=== PATIENT | male | born 1935 | race Caucasian/White ===

== ENCOUNTER → 2017-08-18 10:34 | Outpatient (CLI) | payer MEDICARE, OTHER, SELFPAY ==
[2017-08-18 12:00] LABS: AST(SGOT) 16 U/L (15-37); Alanine Aminotransfer ALT/SGPT 18 U/L (16-61); Albumin, Serum 3.6 g/dL (3.2-5.0); Alkaline Phosphatase 90 U/L (45-117); Bilirubin, Direct 0.18 mg/dL (0.00-0.30); Cholesterol 248 mg/dL (200); Globulin 3.2 g/dL (2.2-4.2); High Density Lipoprotein 99 mg/dL; Protein, Total 6.8 g/dL (6.4-8.2); Triglycerides 72 mg/dL; Very Low Density Lipoprotein 14 mg/dL (5-40)
== END ==
PROVIDERS: Visit Provider Internal Medicine Cardiovascular Disease
DX: E78.5 Hyperlipidemia, unspecified (principal); Z79.899 Other long term (current) drug therapy
CPT/HCPCS: 36415; 80061; 80076

== ENCOUNTER → 2017-09-01 11:01 | Outpatient (CLI) | payer MEDICARE, OTHER, SELFPAY | PROVIDERS: Visit Provider Internal Medicine Hematology & Oncology | DX: D72.810 Lymphocytopenia (principal); C91.40 Hairy cell leukemia not having achieved remission | CPT/HCPCS: 94642 ==

== ENCOUNTER → 2017-10-02 10:35 | Outpatient (CLI) | payer MEDICARE, OTHER, SELFPAY | PROVIDERS: Visit Provider Internal Medicine Hematology & Oncology | DX: C91.40 Hairy cell leukemia not having achieved remission (principal) | CPT/HCPCS: 94642 ==

== ENCOUNTER → 2017-11-05 15:24 | Outpatient (CLI) | payer MEDICARE, OTHER, SELFPAY ==
[2017-11-05 16:35] LABS: T4 Total, Thyroxin 14.4 ug/dL (4.5-12.1); Thyroid Stim Hormone (TSH) 4.34 uIU/mL (0.358-3.74)
== END ==
PROVIDERS: Visit Provider Physician Assistant Medical
DX: I10 Essential (primary) hypertension (principal)
CPT/HCPCS: 36415; 84436; 84443

== ENCOUNTER → 2017-11-25 09:39 | Outpatient (CLI) | payer MEDICARE, OTHER, SELFPAY ==
[2017-11-25 10:09] VITALS: PULSE 66; RESP 18
== END ==
PROVIDERS: Visit Provider Internal Medicine Hematology & Oncology
DX: C91.40 Hairy cell leukemia not having achieved remission (principal)
CPT/HCPCS: 94642

== ENCOUNTER → 2018-05-06 15:07 | Outpatient (CLI) | payer MEDICARE, OTHER, SELFPAY ==
[2018-05-06 14:16] VITALS: BMI 25.2
[2018-05-06 16:32] LABS: AST(SGOT) 10 U/L (15-37); Alanine Aminotransfer ALT/SGPT 18 U/L (16-61); Albumin, Serum 3.6 g/dL (3.2-5.0); Alkaline Phosphatase 110 U/L (45-117); Bilirubin, Direct 0.18 mg/dL (0.00-0.30); Globulin 3.2 g/dL (2.2-4.2); Protein, Total 6.8 g/dL (6.4-8.2); T4 Total, Thyroxin 14.4 ug/dL (4.5-12.1); Thyroid Stim Hormone (TSH) 4.37 uIU/mL (0.358-3.74)
--- OUTSIDE RECORDS SUMMARY | 2018-07-01 20:56 | XMS RPT_ITS ---
:1935 Author Organization [facility] Support Name Relationship Address Phone R Unavailable Unavailable Unavailable LURDES JEFFRIES Unavailable [address] + [place] [address] R Unavailable Unavailable Unavailable LURDES JEFFRIES Unavailable [address] + [place] [address] R Unavailable Unavailable Unavailable LURDES JEFFRIES Unavailable [address] + [place] [address] R Unavailable Unavailable Unavailable LURDES JEFFRIES Unavailable [address] + [place] [address] R Unavailable Unavailable Unavailable LURDES JEFFRIES Unavailable [address] + [place] [address] R Unavailable Unavailable Unavailable LURDES JEFFRIES Unavailable [address] + [place] [address] R Unavailable Unavailable Unavailable LURDES JEFFRIES Unavailable [address] + [place] [address] R Unavailable Unavailable Unavailable LURDES JEFFRIES Unavailable [address] + [place] [address] R Unavailable Unavailable Unavailable LURDES JEFFRIES Unavailable [address] + [place] [address] R Unavailable Unavailable Unavailable LURDES JEFFRIES Unavailable [address] + [place] [address] R Unavailable Unavailable Unavailable LURDES JEFFRIES Unavailable [address] + [place] [address] R Unavailable Unavailable Unavailable LURDES JEFFRIES Unavailable [address] + [place] [address] R Unavailable Unavailable Unavailable LURDES JEFFRIES Unavailable [address] + [place] [address] R Unavailable Unavailable Unavailable LURDES JEFFRIES Unavailable [address] + [place] [address] R Unavailable Unavailable Unavailable LURDES JEFFRIES Unavailable [address] + [place] [address] R Unavailable Unavailable Unavailable LURDES JEFFRIES Unavailable [address] + [place] [address] R Unavailable Unavailable Unavailable LURDES JEFFRIES Unavailable [address] + [place] [address] Care Team Providers Name Role Phone EDD, LAPMAN Referring Unavailable EDD, LAPMAN Referring Unavailable EDD, LAPMAN Referring Unavailable EDD, LAPMAN Referring Unavailable EDD, LAPMAN Attending Unavailable EDD, LAPMAN Referring Unavailable EDD, LAPMAN Referring Unavailable MASCIJOLENE A Referring Unavailable EDD, LAPMAN Referring Unavailable EDD, LAPMAN Referring Unavailable EDD, LAPMAN Attending Unavailable EDD, LAPMAN Referring Unavailable EDD, LAPMAN Referring Unavailable EDD, LAPMAN Referring Unavailable EDD, LAPMAN Referring Unavailable EDD, LAPMAN Attending Unavailable EDD, LAPMAN Referring Unavailable MASCIJOLENE A Referring Unavailable EDD, LAPMAN Attending Unavailable EDD, LAPMAN Referring Unavailable EDD, LAPMAN Referring Unavailable EDD, LAPMAN Attending Unavailable EDD, LAPMAN Referring Unavailable CA OROZCO Attending Unavailable FAIZA MERCADO KAMINI Referring Unavailable PAM, DAESUNG Referring Unavailable EDD, LAPMAN Referring Unavailable EDD, LAPMAN Attending Unavailable EDD, LAPMAN Referring Unavailable Michael Hameed Admitting Unavailable Michael Hameed Attending Unavailable Lee Olivas Primary Care Unavailable Lisa, Vasquez Attending Unavailable Lisa, Vasquez Referring Unavailable Faiza Mercado Primary Care Unavailable Lisa, Vasquez Consulting Unavailable Ashtyn Fuentes Attending Unavailable Edd, Lapman Attending Unavailable Faiza Mercado Primary Care Unavailable Edd, Lapman Attending Unavailable Edd, Lapman Referring Unavailable Faiza Mercado Primary Care Unavailable Lisa, Vasquez Attending Unavailable Lisa, Vasquez Referring Unavailable Faiza Mercado Primary Care Unavailable Edd, Lapman Attending Unavailable Edd, Lapman Referring Unavailable Faiza Mercado Primary Care Unavailable Mónica Singletary Attending Unavailable Edd, Lapman Attending Unavailable Edd, Lapman Referring Unavailable Faiza Mercado Primary Care Unavailable Meghna Escalante Attending Unavailable Mónica Singletary Attending Unavailable Meghna Escalante Attending Unavailable Diana Benton Attending Unavailable Faiza Mercado Referring Unavailable Faiza Mercado Primary Care Unavailable Diana Benton Attending Unavailable Diana Benton Referring Unavailable Faiza Mercado Primary Care Unavailable Gilberto Puga Attending Unavailable Gilberto Puga Referring Unavailable Faiza Mercado Primary Care Unavailable Lisa, Holbrook Attending Unavailable Faiza Mercado Referring Unavailable Lisa, Holbrook Attending Unavailable Lisa, Vasquez Referring Unavailable Faiza Mercado Primary Care Unavailable Lisa, Holbrook Attending Unavailable Lisa, Vasquez Referring Unavailable Faiza Mercado Primary Care Unavailable PROBLEMS PROBLEMS DATE TYPE CONDITION / CODE ATTENDING STATUS SOURCE 05/19/2018 Unknown I46.9 - Cardiac Lisa, Vasquez Active [place] arrest, cause Community unspecified / Hospital I46.9(ICD-10) Repository 05/06/2018 Unknown Z79.899 - Other long Lisa, Vasquez Active [place] term (current) drug Community therapy / Hospital Z79.899(ICD-10) Repository 05/06/2018 Unknown I48.0 - Paroxysmal Lisa, Holbrook Active [place] atrial fibrillation / Community I48.0(ICD-10) Hospital Repository 05/06/2018 Unknown I48.92 - Unspecified Lisa, Holbrook Active [place] atrial flutter / Community I48.92(ICD-10) Hospital Repository 05/06/2018 Unknown I10 - Essential Lisa, Vasquez Active [place] (primary) hypertension Community / I10(ICD-10) Hospital Repository 08/18/2017 Unknown E78.5 - Lisa, Vasquez Active [place] Hyperlipidemia, Community unspecified / Hospital E78.5(ICD-10) Repository 07/17/2017 Unknown D72.810 - Gilberto Puga Active [place] Lymphocytopenia / Community D72.810(ICD-10) Hospital Repository 07/17/2017 Unknown C91.40 - Hairy cell Gilberto Puga Active [place] leukemia not having Community achieved remission / Hospital C91.40(ICD-10) Repository 05/12/2017 Active Agranulocytosis NA Active [place] secondary to cancer Clinic Main chemotherapy / [place] D70.1(ICD-10) Repository 05/12/2017 Active Adverse effect of [facility] antineoplastic and Clinic Main immunosuppressive [place] drugs, initial Repository encounter / T45.1X5A(ICD-10) 04/26/2014 Active Malignant neoplasm of Active [place] prostate / C61(ICD-10) Clinic Main [place] Repository 11/30/2015 Active Hairy cell leukemia, 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 / Clinic Main C91.41(ICD-10) [place] Repository PROCEDURES PROCEDURES No Procedure Records FoundRESULTS RESULTS ECHOCARDIOGRAM COMPLETE Observed: 05/19/2018 Status: F Source: [place] 3:53 PM [facility] REPOSITORY [facility] Cardiovascular Services [address] [place] [address] Echo Complete 05/19/18 1355 MR#: [id number] Acct: [id number] Name: NITIN KINGSLEY Rep #: [id number] : 1935 82 From: Vasquez Gonzalez MD Attending Dr: Vasquez Gonzalez MD Status: REG CLI Ordering Dr: Vasquez Gonzalez MD Date: 05/19/18 Location: [facility] Sex: M C Admitted: Reason For Study: ARRHYTHMIA Procedure This was a 2D Doppler, Color Flow transthoracic echocardiogram. The study was technically difficult. Exam performed in department. Left Ventricle Normal LV size. Left ventricular systolic function is normal. The estimated ejection fraction is 55 %. Stage 1 diastolic dysfunction. The global longitudinal strain = -16% (abnormal). No regional wall motion abnormalities noted. Right Ventricle Normal RV size. Normal systolic function. Atria The left atrium is mildly enlarged. Normal right atrium. Mitral Valve Normal mitral valve. Mild (1+) eccentric mitral valve insufficiency. Tricuspid Valve Normal tricuspid valve. Aortic Valve Trisinus/trileaflet aortic valve. Mild-Moderate (1-2+) eccentric aortic valve insufficiency. Pulmonic Valve Normal pulmonic valve. Great Vessels Normal aortic root. The pulmonary artery is normal size. Normal inferior vena cava. Pericardium/Pleural No pericardial effusion. MMode/2D Measurements AND Calculations LVIDd: 4.3 cm IVSd: 1.3 cm Ao root diam: 3.6 cm LVIDs: 3.1 cm LVPWd: 0.96 cm RVDd: 3.3 cm FS: 29.8 % LAV(MOD-bp): 68.4 ml LA A4 area: 22.2 cm2 LA dimension(2D): 3.7 cm LAV(MOD-bp) Indexed: 37.7 ml/m2 LAV(MOD-sp2): 61.8 ml LAV(MOD-sp4): 72.2 ml RA A4 area: 12.1 cm2 Time Measurements MV dec time: 0.30 sec Doppler Measurements AND Calculations MV E max justice: 54.7 cm/sec Lat Peak E' Justice: 7.7 cm/sec Med Peak E' Justice: 5.9 cm/sec MV A max justice: 130.2 cm/sec E/E' lat: 7.1 E/E' med: 9.2 MV E/A: 0.42 Ao V2 max: 139.1 cm/sec AI max justice: 421.8 cm/sec LV V1 max: 105.2 cm/sec Ao max P.7 mmHg AI max P.2 mmHg LV V1 max P.4 mmHg AI dec slope: 185.0 cm/sec2 AI P1/2t: 667.7 msec PA V2 max: 81.4 cm/sec TR max justice: 215.1 cm/sec TR max P.5 mmHg Interpretation Summary Normal LV size. Left ventricular systolic function is normal. The estimated ejection fraction is 55 %. Stage 1 diastolic dysfunction. Mild-Moderate (1-2+) eccentric aortic valve insufficiency. The global longitudinal strain = -16% (abnormal). Ordering Physician: Vasquez Gonzalez Referring Physician: Faiza Mercado Performed By: Dedra Beckford, MABELCS, RVT 05/19/18 1552 Date Vasquez Gonzalez MD CC: Vasquez Gonzalez MD; Faiza Mercado MD Date Dictated: 05/19/18 1355 Date Transcribed: 05/19/181551 Recruiter Specialist: Signed PROGRESS Observed: 05/07/2018 Status: COMPLETED Source: [place] 11:51 AM [facility] REPOSITORY [facility] ID: [id number] Author: Gilberto Puga Service: (none) Author Type: Physician Type: Progress Notes Filed: 05/08/2018 8:55 AM Note Text: PATIENT NAME: Nitin Kingsley. CLINIC NO: [id number]. ATTENDING PHYSICIAN: Gilberto Puga MD. DATE OF SERVICE: 05/07/2018 ?? 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 HPI: Mr. 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 He had induction chemtherapy with 2CDA initially in November of 1997. He was in complete remission and he had a splenic recurrence in 2000. The patient subsequently had splenectomy, and second course of 2 CDA and went into complete remission again in February of 2004. The patient had his third recurrence with progressive anemia and pancytopenia in 2008. He received Rituxan and 2 CDA and was again in complete remission since 2008. ?? Since nursing home, he has increased fatigue and decreased stamina. Patient has no cough, shortness of breath. He has no fever, chills or night sweats. Weight and appetite remain stable. Patient also has a rising PSA level in history of prostate cancer. ?? He was diagnosed with prostate cancer and had Lupron injection and completed external beam radiation therapy for his prostate cancer last fall. Since that time, patient has increased fatigue. He had a GI evaluation for anemia recently?and it was negative. ?? Current treatment: Rituximab weekly x 4 ( 03/24/17 - 04/21/17 ) Vermurafenib 250mg once daily ( 05/28/17 - 11/05/17?) ?? Interim history:?Patient completed his induction rituximab last year, follow-up by Vermurafenib 250mg once daily in May 28, 2017?because persistent anemia and leukopenia. His complete blood count has totally recover since that time. ?He has no fever, chills or night sweats. CD4 count continued improved.?He has no mouth sore, stomatitis or diarrhea. Patient has no sign of infection. 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 He has no chest pain or shortness of breath. No problem with urination and his prostate cancer is in complete remission ? All medications AND?allergies updated and?reviewed by me. ?? REVIEW OF SYSTEMS: ?? CONSTITUTIONAL: No fevers, chills, nightsweats,?fatigue. HEENT: Denies frequent or severe heaches, nasal congestion/sinus symptoms, problematic allergy problems. EYES: No diplopia or blurry vision. CARDIOVASCULAR: No chest pain, dyspnea, palpitations, orthopnea, PND, ankle edema. PULM: No dyspnea, unexplained cough. GI: No dysphagia/odynophagia, problematic reflux, constipation, diarrhea, changes in stool habits, hematochezia, melena. : No new urinary complaints, including dysuria, gross hematuria or pyuria. NEURO: No new balance problems, peripheral weakness/paresthesias or numbness of concern. MUSC-SKEL: No new joint pain, swelling, or erythema. PSY: No concerns regarding depression, anxiety or panic. INTEGUMENTARY: No new skin changes (rash, new or changing mole, new growth) ?? PHYSICAL EXAMINATION: ?82-year-old well-nourished, well-developed gentleman in no distress Performance status 100% BP 149/71 Pulse 70 Temp (Src) 98 (Oral) Wt 155 lb 8 oz (70.5kg) HEENT: Head is normocephalic, atraumatic. Sclerae white, conjunctivae pink. PEERL. EOMs are intact. Oropharynx is benign. No thrush LYMPHATICS: There is no palpable adenopathy in the neck, supraclavicular region, axillae, or groin. LUNGS: Lungs are clear to percussion and auscultation. HEART: Heart is normal without murmurs, gallops, or rubs. ABDOMEN: Soft and nontender without organomegaly. No masses can be palpated. EXTREMITIES: Are without edema. NEUROLOGIC: Exam is physiologic ?? LABORATORY DATA: Component Latest Ref Rng AND Units 04/30/2018 WBC, [place] 3.70 - 11.00 k/uL 6.21 RBC, [place] 4.20 - 6.00 m/uL 4.35 Hemoglobin, [place] 13.0 - 17.0 g/dL 13.2 Hematocrit, [place] 39.0 - 51.0 % 40.7 MCV, [place] 80.0 - 100.0 fL 93.6 MCH, [place] 26.0 - 34.0 pg 30.3 MCHC, [place] 30.5 - 36.0 g/dL 32.4 RDW, [place] 11.5 - 15.0 % 16.6 (H) Platelet Cnt, [place] 150 - 400 k/uL 284 MPV, [place] 9.0 - 12.7 fL 9.6 Absol Gran Count 1.45 - 7.50 k/uL 4.30 Component Latest Ref Rng AND Units 04/30/2018 Protein, Total 6.3 - 8.0 g/dL 6.1 (L) Albumin 3.9 - 4.9 g/dL 4.1 Calcium 8.5 - 10.2 mg/dL 9.4 Bilirubin, Total 0.2 - 1.3 mg/dL 0.4 Alkaline Phosphatase 38 - 113 U/L 103 AST 14 - 40 U/L 13 (L) Glucose 74 - 99 mg/dL 96 BUN 9 - 24 mg/dL 23 Creatinine 0.73 - 1.22 mg/dL 1.49 (H) Sodium 136 - 144 mmol/L 137 Potassium 3.7 - 5.1 mmol/L 4.2 Chloride 97 - 105 mmol/L 106 (H) CO2 22 - 30 mmol/L 21 (L) Anion Gap 9 - 18 mmol/L 10 ALT 10 - 54 U/L 12 eGFR- 55 eGFR-All Other Races . 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 In complete remission. -His neutropenia and anemia have resolved.? PLAN: - discontinue Vermurafenb - discontinue iron since his anemia resolved. - follow up with dermatology for skin cancer screening (increase risks for skin cancer AND melanoma) - repeat CBC, CMP, LDH AND?quantitative immunoglobulins OV in 6 months - repeat PSA in 6 months for monitoring his prostate cancer s/p radiation therapy I spent 25 minutes in the visit, with more than 50% of the total logs-cu-xwms time of the visit in counseling / coordination of care. Gilberto uPga MD ? Cc: Dr. Faiza Mercado CNOVSP Observed: 05/07/2018 Status: COMPLETED Source: [place] 11:40 AM [facility] REPOSITORY Visit (SP) Office ([place]) NITIN KINGSLEY ([id number]) 1935 M Date Time Provider Department 05/07/18 11:40 AM GILBERTO PUGA During your visit today, we recorded the following information about you: Temperature Pulse Blood pressure Weight 98 degrees 70/minute 149/71 70.5 kg Gilberto Puga MD 05/07/2018 11:46 AM Signed Skin cancer screening Gilberto Puga MD 05/08/2018 8:55 AM Signed PATIENT NAME: Nitin Kingsley. CLINIC NO: [id number]. ATTENDING PHYSICIAN: Gilberto Puga MD. DATE OF SERVICE: 05/07/2018 ?? 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 HPI: Mr. 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 He had induction chemtherapy with 2CDA initially in November of 1997. He was in complete remission and he had a splenic recurrence in 2000. The patient subsequently had splenectomy, and second course of 2 CDA and went into complete remission again in February of 2004. The patient had his third recurrence with progressive anemia and pancytopenia in 2008. He received Rituxan and 2 CDA and was again in complete remission since 2008. ?? Since nursing home, he has increased fatigue and decreased stamina. Patient has no cough, shortness of breath. He has no fever, chills or night sweats. Weight and appetite remain stable. Patient also has a rising PSA level in history of prostate cancer. ?? He was diagnosed with prostate cancer and had Lupron injection and completed external beam radiation therapy for his prostate cancer last fall. Since that time, patient has increased fatigue. He had a GI evaluation for anemia recently?and it was negative. ?? Current treatment: Rituximab weekly x 4 ( 03/24/17 - 04/21/17 ) Vermurafenib 250mg once daily ( 05/28/17 - 11/05/17?) ?? Interim history:?Patient completed his induction rituximab last year, follow-up by Vermurafenib 250mg once daily in May 28, 2017?because persistent anemia and leukopenia. His complete blood count has totally recover since that time. ?He has no fever, chills or night sweats. CD4 count continued improved.?He has no mouth sore, stomatitis or diarrhea. Patient has no sign of infection. 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 He has no chest pain or shortness of breath. No problem with urination and his prostate cancer is in complete remission ? All medications AND?allergies updated and?reviewed by me. ?? REVIEW OF SYSTEMS: ?? CONSTITUTIONAL: No fevers, chills, nightsweats,?fatigue. HEENT: Denies frequent or severe heaches, nasal congestion/sinus symptoms, problematic allergy problems. EYES: No diplopia or blurry vision. CARDIOVASCULAR: No chest pain, dyspnea, palpitations, orthopnea, PND, ankle edema. PULM: No dyspnea, unexplained cough. GI: No dysphagia/odynophagia, problematic reflux, constipation, diarrhea, changes in stool habits, hematochezia, melena. : No new urinary complaints, including dysuria, gross hematuria or pyuria. NEURO: No new balance problems, peripheral weakness/paresthesias or numbness of concern. MUSC-SKEL: No new joint pain, swelling, or erythema. PSY: No concerns regarding depression, anxiety or panic. INTEGUMENTARY: No new skin changes (rash, new or changing mole, new growth) ?? PHYSICAL EXAMINATION: ?82-year-old well-nourished, well-developed gentleman in no distress Performance status 100% BP 149/71 Pulse 70 Temp (Src) 98 (Oral) Wt 155 lb 8 oz (70.5kg) HEENT: Head is normocephalic, atraumatic. Sclerae white, conjunctivae pink. PEERL. EOMs are intact. Oropharynx is benign. No thrush LYMPHATICS: There is no palpable adenopathy in the neck, supraclavicular region, axillae, or groin. LUNGS: Lungs are clear to percussion and auscultation. HEART: Heart is normal without murmurs, gallops, or rubs. ABDOMEN: Soft and nontender without organomegaly. No masses can be palpated. EXTREMITIES: Are without edema. NEUROLOGIC: Exam is physiologic ?? LABORATORY DATA: Component Latest Ref Rng AND Units 04/30/2018 WBC, [place] 3.70 - 11.00 k/uL 6.21 RBC, [place] 4.20 - 6.00 m/uL 4.35 Hemoglobin, [place] 13.0 - 17.0 g/dL 13.2 Hematocrit, [place] 39.0 - 51.0 % 40.7 MCV, [place] 80.0 - 100.0 fL 93.6 MCH, [place] 26.0 - 34.0 pg 30.3 MCHC, [place] 30.5 - 36.0 g/dL 32.4 RDW, [place] 11.5 - 15.0 % 16.6 (H) Platelet Cnt, [place] 150 - 400 k/uL 284 MPV, [place] 9.0 - 12.7 fL 9.6 Absol Gran Count 1.45 - 7.50 k/uL 4.30 Component Latest Ref Rng AND Units 04/30/2018 Protein, Total 6.3 - 8.0 g/dL 6.1 (L) Albumin 3.9 - 4.9 g/dL 4.1 Calcium 8.5 - 10.2 mg/dL 9.4 Bilirubin, Total 0.2 - 1.3 mg/dL 0.4 Alkaline Phosphatase 38 - 113 U/L 103 AST 14 - 40 U/L 13 (L) Glucose 74 - 99 mg/dL 96 BUN 9 - 24 mg/dL 23 Creatinine 0.73 - 1.22 mg/dL 1.49 (H) Sodium 136 - 144 mmol/L 137 Potassium 3.7 - 5.1 mmol/L 4.2 Chloride 97 - 105 mmol/L 106 (H) CO2 22 - 30 mmol/L 21 (L) Anion Gap 9 - 18 mmol/L 10 ALT 10 - 54 U/L 12 eGFR- 55 eGFR-All Other Races . 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 In complete remission. -His neutropenia and anemia have resolved.? PLAN: - discontinue Vermurafenb - discontinue iron since his anemia resolved. - follow up with dermatology for skin cancer screening (increase risks for skin cancer AND melanoma) - repeat CBC, CMP, LDH AND?quantitative immunoglobulins OV in 6 months - repeat PSA in 6 months for monitoring his prostate cancer s/p radiation therapy I spent 25 minutes in the visit, with more than 50% of the total vlkh-qs-yggu time of the visit in counseling / coordination of care. Gilberto Puga MD ? Cc: Dr. Faiza Mercado Referring Provider: GILBERTO PUGA [[id number]] Allergies As of Date: 05/07/2018 Noted Allergy Reaction CIPRO (CIPROFLOXACIN) 09/26/2005 7 - Swelling 10 - Anaphylaxis ALLOPURINOL SODIUM 09/26/2005 2 - Rash BACTRIM (SULFAMETHOXAZOLE-TRIMETH*09/26/2005 2 - Rash IODINE (CONTRAST DYE) 09/26/2005 2 - Rash Comments: not a problem topically RITUXAN (RITUXIMAB) 03/24/2017 14 - Other: See Comments Comments: See nursing notes 03/24/18. Date Reviewed: 05/07/2018 Reviewed by: Oumou Yang - Fully Assessed Reason for Visit: Established Patient [175] Primary Visit Diagnosis:Hairy cell leukemia, in remission (HCC) [C91.41] Other Visit Diagnoses:Prostate cancer (HCC) [C61] H/O splenectomy [Z90.81] Level of Service: EST PATIENT VISIT LEVEL 4 [[id number]] Disposition: Return in about 6 months (around 11/04/2018). LOS history recorded Follow-up and Disposition History Recorded Prescriptions as of 05/07/2018 Sig: PYRIDOXINE (VITAMIN B6) 100 M* Take 1 tablet by mouth once d* ATORVASTATIN 10 MG TABLET Take 10 mg by mouth once nelsy* * CARVEDILOL 6.25 MG TABLET Take 6.25 mg by mouth twice d* * FLOMAX 0.4 MG CAPSULE Take one(1) tablet daily. Medication notes this encounter AMIODARONE 100 MG TABLET >> Oumou Yang MA 05/07/2018 11:30 AM >> OUMOU YANG MA ThuMay 07, 2018 11:30 AM No longer taking. 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] INVALID FOR* H/O splenectomy [Z90.81] INVALID FOR* Prostate cancer (HCC) [C61] INVALID FOR* 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] INVALID FOR* Anemia [D64.9] INVALID FOR* Chemotherapy-induced neutropenia (HCC) [D70.1, *INVALID FOR* Other instructions from your clinician: Skin cancer screening Encounter Status:Closed by GILBERTO PUGA MD on 05/08/18 LIVER PROFILE Collected: 05/06/2018 Status: F Source: [place] 3:14 PM [facility] REPOSITORY TYPE CODE TESTS RESULT OUT OF RANGE REFERENCE UNITS LAB L501.1500 6.4-8.2 g/dL Normal T PROT 6.8 LAB L501.1800 3.2-5.0 g/dL Normal ALB 3.6 LAB L501.1950 2.2-4.2 g/dL Normal GLOB 3.2 LAB L501.4100 15-37 U/L Low AST 10 LAB L501.4305 45-117 U/L Normal ALK P 110 LAB L501.4405 16-61 U/L Normal ALT 18 LAB L501.4600 0.20-1.00 mg/dL Normal T BILI 0.50 LAB L501.4700 0.00-0.30 mg/dL Normal D BILI 0.18 Performed By: #### L500.3400, L501.9310, L501.9520 #### Laboratory [address] [place], [place], [id number] T4 TOTAL, THYROXIN Collected: 05/06/2018 Status: F Source: [place] 3:14 PM [facility] REPOSITORY TYPE CODE TESTS RESULT OUT OF REFERENCE UNITS RANGE LAB L501.9310 4.5-12.1 ug/dL T4 High THYROXIN 14.4 Performed By: #### L500.3400, L501.9310, L501.9520 #### Laboratory [address] [place], [place], [id number] THYROID STIM HORMONE Collected: 05/06/2018 Status: F Source: [place] ([facility]) 3:14 PM [facility] REPOSITORY TYPE CODE TESTS RESULT OUT OF RANGE REFERENCE UNITS LAB L501.9520 0.358-3.74 uIU/mL High TSH 4.37 Performed By: #### L500.3400, L501.9310, L501.9520 #### Laboratory [address] [place], [address] CARDIOLOGY VISIT Observed: 05/06/2018 Status: F Source: [place] REPORT 2:45 PM [facility] REPOSITORY [facility] [address] [place] [address] OFFICE VISIT Date of Service: 05/06/18 MR#: [id number] Acct: [id number] Name: NITIN KINGSLEY Rep #: [id number] : 1935 Provider: Vasquez Gonzalez MD Age/Sex: 82/M Location: [facility] [place] Status: Signed HPI HPI Chief Complaint: Follow up visit Details: NITIN KINGSLEY, is a 82 M who presents to the office today for a routine follow-up visit. He is a gentleman with a history of atrial fibrillation with rapid ventricular response rate in the setting of an acute GI bleed and hemorrhagic shock. He also has a history of hyperlipidemia and her recent leukemia. He denies any chest pain or shortness of breath or paroxysmal nocturnal dyspnea or pedal edema he is not had any chest tightness or palpitations. He has had no neck arm or jaw discomfort suggest angina. He has been compliant with all his medications. His physical exam today demonstrates clear lung pham regular rate and rhythm and no pedal edema. His electric cardiogram does corroborate this demonstrating sinus rhythm with a rate of 66 bpm. 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 Accompanied by: Is patient in pain?: No Allergies allopurinol Allergy (Verified 05/06/18 14:16) Swelling ciprofloxacin [From Cipro] Allergy (Verified 05/06/18 14:16) Unknown ciprofloxacin HCl [From Cipro] Allergy (Verified 05/06/18 14:16) Unknown iodine Allergy (Verified 05/06/18 14:16) Unknown sulfamethoxazole [From Bactrim] Allergy (Verified 05/06/18 14:16) Unknown trimethoprim [From Bactrim] Allergy (Verified 05/06/18 14:16) Unknown Medications Carvedilol [Coreg] 6.25 mg PO BID 09/06/14 [History Confirmed 05/06/18] Tamsulosin HCl [Flomax] 0.4 mg PO DAILY 09/06/14 [History Confirmed 05/06/18] ferrous gluconate 324 mg (36 mg iron) tablet 324 mg PO QDAY tab 11/04/17 [History Confirmed 05/06/18] vemurafenib 240 mg tablet PO 28 Days #56 11/04/17 [History Confirmed 05/06/18] atorvastatin 10 mg tablet 10 mg PO QDAY #30 tab 11/20/17 [Rx Confirmed 05/06/18] PFSH Medical History Hyperlipidemia (Chronic) Atrial flutter (Chronic) Paroxysmal atrial fibrillation (Chronic) Hypertension (Chronic) Surgical History H/O splenectomy (Resolved) History of tonsillectomy (Resolved) Social History Smoking Status: Former smoker alcohol intake: never caffeine: Yes Type: coffee Number of servings: 2 what type of physical activity do you participate in: none ROS Const Const: Negative for fatigue, weakness, night sweats, excessive sweating, frequent falls, headache(s) or daytime sleepiness Eyes Eyes: Negative for loss of peripheral vision, transient loss of vision, blind spots, double vision or blurry vision ENT ENT: Negative for headache(s), dizziness, balance problems, Nosebleed/epistaxis, tongue swelling or lip swelling Cardio Chest Pain: No Palpitations: No Edema: None Muscle aches with walking: None Resp Respiratory: Negative for SOB at rest, SOB orthopnea\SOB lying down, Cough, paroxysmal nocturnal dyspnea or SOB with activity GI GI: Negative nausea, vomiting, heartburn, black,tarry stools or bright, red blood in stools : Negative for hematuria Musc Musc: Negative for balance problems, muscle aches/ myalgia, muscle weakness or joint pain Skin Skin: Negative non-healing lesions, unusual bruising or rash Neuro Neuro: Negative for weakness, frequent falls, headache(s), double vision, dizziness, lightheadedness, orthostatic symptoms, blurry vision or lack of coordination Jacob Hematologic/Lymphatic: Negative for easy bruising or easy bleeding Endo Endo: Negative for fatigue, excessive sweating, cold intolerance, heat intolerance, increased thirst/drinking or hair loss Psych Psych: Negative for anxiety or depression Allergy Allergy/Immunology: Negative for throat swelling, Negative for tongue swelling, Negative for hives, Negative for rash, Negative for lip swelling Cardiology Exam Const Appearance: cooperative, healthy appearing, well developed, well groomed and no acute distress Nutritional Appearance: well nourished and average body habitus Orientation: alert, awake and oriented x3 Head Head: normal to inspection, normocephalic and atraumatic Ears: hearing grossly normal bilaterally and external ears normal Nose: external nose normal, nasal mucous membranes and turbinates normal, nares normal, septum normal, no nasal discharge Face and Sinus: face symmetric Mouth: oral mucosae normal, tongue normal, oropharynx normal and moist mucous membranes Teeth and gingiva: dentition normal Throat: posterior oropharynx normal, tonsils normal and uvula midline Eyes General: appearance normal, both eyes and all related structures Eyelids: eyelids normal Conjunctivae: conjunctivae normal Pupils: PERRL, normal by confrontation and accommodation normal EOM: EOM intact bilaterally Neck Neck: normal visual inspection, trachea midline and no JVD JVD: +5 Carotids: normal carotid upstroke and bounding pulses Chest Chest inspection: normal inspection of the chest, symmetric chest movement and normal respiratory effort Auscultation: Bilateral: Clear to Auscultation Cardio Palpation: normal PMI Rate: regular rate Rhythm: regular rhythm Heart sounds: S1 normal, S2 normal and normal, physiologic split S2; negative rub, gallop or murmur GI GI: normal to inspection, soft, no hepatosplenomegaly and bowel sounds present Neuro General: alert, awake, oriented x3, no focal sensory deficit, gait normal and moves all extremities Skin Skin: no rashes or lesions noted Extremities Pulses: Normal: Right Femoral Pulse, Left Femoral Pulse, Right Dorsalis Pedis Pulse, Left Dorsalis Pedis Pulse, Right Posterior Tibial Pulse, Left Posterior Tibial Pulse, Right Radial Pulse, Left Radial Pulse Lower Extremity Edema: None: Bilateral Musculoskel Musculoskeletal: No joint tenderness Psych Psychological: normal affect Assessment AND Plan 1. Paroxysmal atrial fibrillation I48.0 Plan He did have a history of paroxysmal atrial fibrillation he is not had any recurrent episodes recently. My recommendation is that in the absence of any active issues regarding either chemotherapy or GI or stress issues we can discontinue his amiodarone. An echocardiogram should be performed to assess his left ventricular function. You do remember that he does have mild aortic regurgitation as well. Routine hepatic and thyroid function test however should be performed. Orders Orders: 2. Essential hypertension I10 Plan His blood pressure appears to be under good control on the current medical therapy I would not recommend that we make any changes. He will remain on the same dose of the carvedilol. He is also on tamsulosin for prostate. Thank you for allowing me to participate in the care of your patient. 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) Coding Level of Care Code Off vis,est,level 3 Diagnoses Paroxysmal atrial fibrillation I48.0 Essential hypertension I10 Hypertension type: essential hypertension Coding Level of Care Code Off vis,est,level 3 Diagnoses Paroxysmal atrial fibrillation I48.0 Essential hypertension I10 Hypertension type: essential hypertension 05/06/18 1445 <Electronically signed by Vasquez Gonzalez MD> Date Vasquez Gonzalez MD Cosigner Signature: Date (if applicable) CC: Faiza Mercado MD 12 LEAD EKG PERFORMED Observed: 05/06/2018 Status: F Source: [place] TAVAREZ 2:19 PM [facility] REPOSITORY [facility] [address] [place] [address] 12 Lead EKG performed by BMS 05/06/188 MR#: [id number] Acct: [id number] Name: NITIN KINGSLEY Rep #: [id number] : 1935 82 From: Vasquez Gonzalez MD Attending Dr: Vasquez Gonzalez MD Status: DEP AMB Ordering Dr: Vasquez Gonzalez MD Date: 05/06/18 [place]: [facility] [place] Sex: M C Admitted: BMS/12 Lead EKG performed by [facility] Sinus Rhythm WITHIN NORMAL LIMITS 05/10/18 0841 <Electronically signed by Vasquez Gonzalez MD> Date Vasquez Gonzalez MD CC: Faiza Mercado MD Date Dictated: 05/06/181417 Date Transcribed: 05/06/181417 Recruiter Specialist: [place] Signed [place] ABS GR + CBC Collected: 04/30/2018 Status: F Source: [facility] 2:49 PM [facility] REPOSITORY TYPE CODE TESTS RESULT OUT OF REFERENCE UNITS RANGE LAB WWBC 3.70-11.00 k/uL [place] WBC 6.21 LAB WRBC 4.20-6.00 m/uL [place] RBC 4.35 LAB WHGB 13.0-17.0 g/dL [place] Hemoglobin 13.2 LAB WHCT 39.0-51.0 % [place] Hematocrit 40.7 LAB WMCV 80.0-100.0 fL [place] MCV 93.6 LAB WMCH 26.0-34.0 pg [place] MCH 30.3 LAB WMCHC 30.5-36.0 g/dL [place] MCHC 32.4 LAB WRDW 11.5-15.0 % [place] High RDW 16.6 LAB WPLT 150-400 k/uL [place] Platelet Cnt 284 LAB WMPV 9.0-12.7 fL [place] MPV 9.6 Result Comment: Test performed at: [facility] [place], [address] [place] [address] [address] [place] [address]. LAB ABGRAN 1.45-7.50 k/uL Absol Gran 4.30 Count COMP METABOLIC PANEL Collected: 04/30/2018 Status: F Source: [place] 2:48 PM [facility] REPOSITORY TYPE CODE TESTS RESULT OUT OF REFERENCE UNITS RANGE LAB TP 6.3-8.0 g/dL Protein, Low Total 6.1 LAB ALB 3.9-4.9 g/dL Albumin 4.1 LAB CA 8.5-10.2 mg/dL Calcium, Total 9.4 LAB TBIL 0.2-1.3 mg/dL Bilirubin, Total 0.4 LAB ALKP 38-113 U/L Alkaline Phosphatase 103 LAB AST 14-40 U/L AST Low 13 LAB GLU 74-99 mg/dL Glucose 96 LAB BUN 9-24 mg/dL BUN 23 LAB CRET 0.73-1.22 mg/dL Creatinine High 1.49 LAB NA 136-144 mmol/L Sodium 137 LAB K 3.7-5.1 mmol/L Potassium 4.2 LAB CL 97-105 mmol/L Chloride High 106 LAB CO2 22-30 mmol/L CO2 Low 21 LAB AGAP 9-18 mmol/L Anion Gap 10 LAB ALT 10-54 U/L ALT 12 LAB GFRAA eGFR- 55 Amer. LAB GFRNAA . eGFR-All Other Races 45 Result Comment: eGFR (Estimated GFR) Units of measure: mL/min/1.73 meters squared eGFR is derived from the reexpressed MDRD Study equation using the following parameters: serum creatinine, age, gender and race. The creatinine assay has been calibrated to be traceable to IDMS. An eGFR <60 mL/min/1.73m2 for >3 months is consistent with chronic kidney disease. Refer to KDOQI guidelines for clinical interpretation. In patients with unstable renal function, e.g. those with acute kidney injury, the eGFR may not accurately reflect actual GFR. LD Collected: 04/30/2018 Status: F Source: [facility] 2:48 PM MAIN CAMPUS REPOSITORY TYPE CODE TESTS RESULT OUT OF RANGE REFERENCE UNITS LAB LD 135-225 U/L LD 187 PSA, DIAGNOSTIC Collected: 04/30/2018 Status: F Source: [place] 2:48 PM [facility] REPOSITORY TYPE CODE TESTS RESULT OUT OF REFERENCE UNITS RANGE LAB PSA 0.00-2.59 ng/mL PSA, Diagnostic 0.12 Result Comment: Total PSA test methodology used is the Electrochemiluminescence Immunoassay. Performed By: #### PSA #### [facility] [employer] [address], [place] [address] CD4 ABSOLUTE COUNT Collected: 04/30/2018 Status: F Source: [place] 2:48 PM [facility] REPOSITORY TYPE CODE TESTS RESULT OUT OF REFERENCE UNITS RANGE LAB XCD3P 60-89 % 71 CD3+ T Cell % LAB XCD3N 958-2388 Cells/uL 496 Low CD3+ T Cell No. LAB XCD4P 34-61 % 57 CD4+CD3+ T Cell % LAB XCD4N 533-1674 Cells/uL 398 Low CD4+CD3+ T Cell No. LAB XCOMNT Clinical CD4 interpretation of Comment lymphocyte subsets must be made with caution. Relative and absolute values may be profoundly affected by immunosuppressive or cytotoxic therapy, and be abnormal in a wide variety of infectious, inflammatory, autoimmune and neoplastic disorders. Result Comment: The following number of cluster designated antibodies were used for the definition of the above reported populations: CD3 and CD4. (CD45 used for gating.) This test was developed and its performance characteristics determined by [facility]'s [facility] [place] ([facility]). It has not been cleared or approved by the FDA. [facility] is regulated under CLIA as qualified to perform high-complexity testing. This test is used for clinical purposes. It should not be regarded as investigational or for research. Performed By: #### CD4ABS #### [facility] [employer] [address] [place], [place] [address] PSA, DIAGNOSTIC Collected: 03/18/2018 Status: F Source: [place] 3:01 PM [facility] REPOSITORY TYPE CODE TESTS RESULT OUT OF REFERENCE UNITS RANGE LAB PSA 0.00-2.59 ng/mL PSA, Diagnostic 0.10 Result Comment: Total PSA test methodology used is the Electrochemiluminescence Immunoassay. Performed By: #### PSA #### [id number] [place], [place] [address] CNOV Observed: 03/18/2018 Status: COMPLETED Source: [place] 3:00 PM [facility] REPOSITORY Office Visit (RADTWS) NITIN KINGSLEY ([id number]) 1935 M Date Time Provider Department 03/18/18 3:00 PM CA OROZCO During your visit today, we recorded the following information about you: Temperature Pulse Respiration Blood pressure 96.8 degrees 74/minute 20/minute 155/70 Weight 70.3 kg Zully Jones, RN, RN 03/18/2018 2:47 PM Signed Radiation Therapy - Nursing Note (Follow-up) PATIENT NAME: Nitin [place] PATIENT March 18, 2018 [facility] FACILITY/LOCATION: [place] Reason for visit: Follow up. Subjective Data No c/o Additional Data Do you want to see a Stuffing Machine Operator? No Nursing Assessment Fatigue: none Appetite: good Weight Gain/Loss: No Last 6 Encounter Wt Readings: Date: Wt: 03/18/2018 70.3 kg (155 lb) 02/05/2018 72.1 kg (159 lb) 11/05/2017 73 kg (161 lb) 08/28/2017 73 kg (161 lb) 07/03/2017 72.3 kg (159 lb 8 oz) 06/05/2017 73 kg (161 lb) Bowel Function: normal bowel movements Bone Pain: none Focused Assessment PROSTATE - MALE PELVIS: Rectal bleeding: No. Rectal pain: No. Bladder function: no problems. Urinary frequency (D/N): same/same. Was approved? did not have tablet BP repeated AND remains elevated. Dr. Orozco notified. Patient instructed to follow up with PCP within 30 days. SIGNED by: LESLIE Casiano MD 03/23/2018 9:28 AM Signed Radiation Oncology - Follow Up Note PATIENT NAME: Nitin [place] PATIENT DIAGNOSIS: Prostate adenocarcinoma with Casandra score 6(3+3), PSA 9.19 and clinical stage T1c. s/p radiation treatment finished on 02/19/16. INTERVAL HISTORY: He is here for a routine follow-up. He is doing well without any specific new complaint. He denies any problems with urination or bowel movements. PSA on 02/23/17 was 0.17 and PSA on 10/30/16 was 0.41 and 1.04 on 07/29/16. He is on Vermurafenib for hairy cell leukemia. ALLERGIES: ALLERGIES Allergen Reactions - Cipro [Ciprofloxaci* Swelling, Anaphylaxis - Allopurinol Sodium Rash - Bactrim [Sulfametho* Rash - Iodine [Contrast Dy* Rash not a problem topically - Rituxan [Rituximab] Other: See Comments See nursing notes 03/24/18. MEDICATIONS: vemurafenib (ZELBORAF) 240 mg tab Take 1 tablet by mouth twice daily. ZELBORAF 240 mg tab TAKE 1 TABLET BY MOUTH TWICE A DAY iron polysaccharide complex (FERREX 150) 150 mg iron capsule Take 1 capsule by mouth once daily. pyridoxine, vitamin B6, (VITAMIN B6) 100 mg tablet Take 1 tablet by mouth once daily. amiodarone (PACERONE) 100 mg tablet Take 100 mg by mouth once daily. Omeprazole 40 mg capsule Take 1 capsule by mouth once daily. atorvastatin (LIPITOR) 10 mg tablet Take 10 mg by mouth once daily. CARVEDILOL 6.25 mg ORAL tablet Take 6.25 mg by mouth twice daily. FLOMAX 0.4 MG 24 HR CAP Take one(1) tablet daily. PHYSICAL EXAM: VS: BP 155/70 Pulse 74 Temp 36 ?C (96.8 ?F) (Temporal Artery) Resp 20 Wt 70.3 kg (155 lb) SpO2 96% BMI 25.99 kg/m? KPS: 100 General appearance: Alert and oriented. No acute distress. ASSESSMENT AND PLAN: Clinically stable. I will check PSA today. I will see him in one year for a routine follow-up. Signed by: Ca Orozco MD cc: Faiza Mercado DO [address] [place] [address] Referring Provider: FAIZA MERCADO [[id number]] Allergies As of Date: 03/18/2018 Noted Allergy Reaction CIPRO (CIPROFLOXACIN) 09/26/2005 7 - Swelling 10 - Anaphylaxis ALLOPURINOL SODIUM 09/26/2005 2 - Rash BACTRIM (SULFAMETHOXAZOLE-TRIMETH*09/26/2005 2 - Rash IODINE (CONTRAST DYE) 09/26/2005 2 - Rash Comments: not a problem topically RITUXAN (RITUXIMAB) 03/24/2017 14 - Other: See Comments Comments: See nursing notes 03/24/18. Date Reviewed: 03/18/2018 Reviewed by: Zully (Rn) LESLIE Jones - Fully Assessed Reason for Visit: Recheck [92] Primary Visit Diagnosis:Prostate cancer (HCC) [C61] Order(s):PSA/PROSTSPECAG DIAG [SQPSA] Order #: [id number] FUTURE Prescriptions as of 03/18/2018 Sig: VEMURAFENIB 240 MG TABLET Take 1 tablet by mouth twice * ZELBORAF 240 MG TABLET TAKE 1 TABLET BY MOUTH TWICE * POLYSACCHARIDE IRON COMPLEX 1* Take 1 capsule by mouth once * PYRIDOXINE (VITAMIN B6) 100 M* Take 1 tablet by mouth once d* AMIODARONE 100 MG TABLET Take 100 mg by mouth once valerie* OMEPRAZOLE 40 MG CAPSULE,JESSICA* Take 1 capsule by mouth once * ATORVASTATIN 10 MG TABLET Take 10 mg by mouth once nelsy* * CARVEDILOL 6.25 MG TABLET Take 6.25 mg by mouth twice d* * FLOMAX 0.4 MG CAPSULE Take one(1) tablet daily. 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 Subjective Data No c/o Additional Data Do you want to see a Stuffing Machine Operator? No Nursing Assessment Fatigue: none Appetite: good Weight Gain/Loss: No Last 6 Encounter Wt Readings: Date: Wt: 03/18/2018 70.3 kg (155 lb) 02/05/2018 72.1 kg (159 lb) 11/05/2017 73 kg (161 lb) 08/28/2017 73 kg (161 lb) 07/03/2017 72.3 kg (159 lb 8 oz) 06/05/2017 73 kg (161 lb) Bowel Function: normal bowel movements Bone Pain: none Focused Assessment PROSTATE - MALE PELVIS: Rectal bleeding: No. Rectal pain: No. Bladder function: no problems. Urinary frequency (D/N): same/same. Was KP approved? did not have tablet BP repeated AND remains elevated. Dr. Orozco notified. Patient instructed to follow up with PCP within 30 days. SIGNED by: Zully Jones RN Encounter Status:Closed by CA OROZCO MD on 03/23/18 PROGRESS Observed: 03/18/2018 Status: COMPLETED Source: [place] 2:49 PM [facility] REPOSITORY HNO ID: [id number] Author: Ca Orozco Service: (none) Author Type: Physician Type: Progress Notes Filed: 03/23/2018 9:28 AM Note Text: Radiation Oncology - Follow Up Note PATIENT NAME: Nitin [place] PATIENT DIAGNOSIS: Prostate adenocarcinoma with Casandra score 6(3+3), PSA 9.19 and clinical stage T1c. s/p radiation treatment finished on 02/19/16. INTERVAL HISTORY: He is here for a routine follow-up. He is doing well without any specific new complaint. He denies any problems with urination or bowel movements. PSA on 02/23/17 was 0.17 and PSA on 10/30/16 was 0.41 and 1.04 on 07/29/16. He is on Vermurafenib for hairy cell leukemia. ALLERGIES: ALLERGIES Allergen Reactions - Cipro [Ciprofloxaci* Swelling, Anaphylaxis - Allopurinol Sodium Rash - Bactrim [Sulfametho* Rash - Iodine [Contrast Dy* Rash not a problem topically - Rituxan [Rituximab] Other: See Comments See nursing notes 03/24/18. MEDICATIONS: vemurafenib (ZELBORAF) 240 mg tab Take 1 tablet by mouth twice daily. ZELBORAF 240 mg tab TAKE 1 TABLET BY MOUTH TWICE A DAY iron polysaccharide complex (FERREX 150) 150 mg iron capsule Take 1 capsule by mouth once daily. pyridoxine, vitamin B6, (VITAMIN B6) 100 mg tablet Take 1 tablet by mouth once daily. amiodarone (PACERONE) 100 mg tablet Take 100 mg by mouth once daily. Omeprazole 40 mg capsule Take 1 capsule by mouth once daily. atorvastatin (LIPITOR) 10 mg tablet Take 10 mg by mouth once daily. CARVEDILOL 6.25 mg ORAL tablet Take 6.25 mg by mouth twice daily. FLOMAX 0.4 MG 24 HR CAP Take one(1) tablet daily. PHYSICAL EXAM: VS: BP 155/70 Pulse 74 Temp 36 ?C (96.8 ?F) (Temporal Artery) Resp 20 Wt 70.3 kg (155 lb) SpO2 96% BMI 25.99 kg/m? KPS: 100 General appearance: Alert and oriented. No acute distress. ASSESSMENT AND PLAN: Clinically stable. I will check PSA today. I will see him in one year for a routine follow-up. Signed by: Ca Orozco MD cc: Faiza Mercado, DO [address] [place] [address] PROGRESS Observed: 02/05/2018 Status: COMPLETED Source: [place] 4:06 PM [facility] REPOSITORY O ID: [id number] Author: Gilberto Puag Service: (none) Author Type: Physician Type: Progress Notes Filed: 02/06/2018 7:42 AM Note Text: PATIENT NAME: Nitin [place]. CLINIC NO: [id number]. ATTENDING PHYSICIAN: Gilberto Puga MD. DATE OF SERVICE: 02/05/2018 ?? 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 HPI: Mr. 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 He had induction chemtherapy with 2CDA initially in November of 1997. He was in complete remission and he had a splenic recurrence in 2000. The patient subsequently had splenectomy, and second course of 2 CDA and went into complete remission again in February of 2004. The patient had his third recurrence with progressive anemia and pancytopenia in 2008. He received Rituxan and 2 CDA and was again in complete remission since 2008. ?? Since nursing home, he has increased fatigue and decreased stamina. Patient has no cough, shortness of breath. He has no fever, chills or night sweats. Weight and appetite remain stable. Patient also has a rising PSA level in history of prostate cancer. ?? He was diagnosed with prostate cancer and had Lupron injection and completed external beam radiation therapy for his prostate cancer last fall. Since that time, patient has increased fatigue. He had a GI evaluation for anemia recently?and it was negative. ?? Current treatment: Rituximab weekly x 4 ( 03/24/17 - 04/21/17 ) Vermurafenib 250mg once daily ( 05/28/17 - now?) ?? Interim history:?Patient completed his induction rituximab last year, he started Vermurafenib 250mg once daily in May 28, 2017?because persistent anemia and leukopenia. ?He has no fever, chills or night sweats. His White blood cell count as well as CD4 count continued improved on treatment.?He has no mouth sore, stomatitis or diarrhea. Patient has no sign of infection. ?only complaint is myalgia and skin cancer (Squamous cell) His blood pressure is also elevated since he started treatment. His weight and appetite has been stable. ? All medications AND?allergies updated and?reviewed by me. ?? REVIEW OF SYSTEMS: ?? CONSTITUTIONAL: No fevers, chills, nightsweats,?fatigue. HEENT: Denies frequent or severe heaches, nasal congestion/sinus symptoms, problematic allergy problems. EYES: No diplopia or blurry vision. CARDIOVASCULAR: No chest pain, dyspnea, palpitations, orthopnea, PND, ankle edema. PULM: No dyspnea, unexplained cough. GI: No dysphagia/odynophagia, problematic reflux, constipation, diarrhea, changes in stool habits, hematochezia, melena. : No new urinary complaints, including dysuria, gross hematuria or pyuria. NEURO: No new balance problems, peripheral weakness/paresthesias or numbness of concern. MUSC-SKEL: No new joint pain, swelling, or erythema. PSY: No concerns regarding depression, anxiety or panic. INTEGUMENTARY: No new skin changes (rash, new or changing mole, new growth) ?? PHYSICAL EXAMINATION: ?82-year-old well-nourished, well-developed gentleman in no distress Performance status 100% BP 162/80 Pulse 66 Temp (Src) 98.1 (Oral) Wt 159 lb (72.1kg) HEENT: Head is normocephalic, atraumatic. Sclerae white, conjunctivae pink. PEERL. EOMs are intact. Oropharynx is benign. No thrush LYMPHATICS: There is no palpable adenopathy in the neck, supraclavicular region, axillae, or groin. LUNGS: Lungs are clear to percussion and auscultation. HEART: Heart is normal without murmurs, gallops, or rubs. ABDOMEN: Soft and nontender without organomegaly. No masses can be palpated. EXTREMITIES: Are without edema. NEUROLOGIC: Exam is physiologic ?? LABORATORY DATA: Component Latest Ref Rng AND Units 01/28/2018 WBC, [place] 3.70 - 11.00 k/uL 4.93 RBC, [place] 4.20 - 6.00 m/uL 4.19 (L) Hemoglobin, [place] 13.0 - 17.0 g/dL 12.8 (L) Hematocrit, [place] 39.0 - 51.0 % 39.3 MCV, [place] 80.0 - 100.0 fL 93.8 MCH, [place] 26.0 - 34.0 pg 30.5 MCHC, [place] 30.5 - 36.0 g/dL 32.6 RDW, [place] 11.5 - 15.0 % 15.0 Platelet Cnt, [place] 150 - 400 k/uL 262 MPV, [place] 9.0 - 12.7 fL 9.7 Absol Gran Count 1.45 - 7.50 k/uL 3.20 Iron 41 - 186 ug/dL 38 (L) TIBC 232 - 386 ug/dL 352 Transferrin Saturation 15 - 57 % 11 (L) Ferritin 30.3 - 565.7 ng/mL 36.3 Component Latest Ref Rng AND Units 01/28/2018 Protein, Total 6.3 - 8.0 g/dL 6.3 Albumin 3.9 - 4.9 g/dL 4.0 Calcium 8.5 - 10.2 mg/dL 9.2 Bilirubin, Total 0.2 - 1.3 mg/dL 0.4 Alkaline Phosphatase 36 - 108 U/L 82 AST 14 - 40 U/L 19 Glucose 74 - 99 mg/dL 92 BUN 9 - 24 mg/dL 18 Creatinine 0.73 - 1.22 mg/dL 1.60 (H) Sodium 136 - 144 mmol/L 137 Potassium 3.7 - 5.1 mmol/L 4.5 Chloride 97 - 105 mmol/L 101 CO2 22 - 30 mmol/L 21 (L) Anion Gap 9 - 18 mmol/L 15 ALT 10 - 54 U/L 7 (L) eGFR- 51 eGFR-All Other Races . 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 In complete remission. -His?leukopenia and neutropenia have resolved.? -He is tolerating except for myalgia an skin cancer AND elevated blood pressure. ?? Anemia of chronic disease secondary to moderate renal failure, stage 3. AND iron deficiency-asymptomatic ? PLAN: - pentamidine and acyclovir were discontinued with no recurrent infection. - continue Vermurafenib 250mg once daily X 3 more months - increase fluid ( water 5 - 7 glasses daily ) - follow up with dermatology for skin cancer - start [id number] once daily for iron deficiency anemia. - repeat CBC, CMP, LDH AND?CD4 counts OV in 3 months - monitor blood pressure at home and follow up with PCP. ? Gilberto Puga MD ? Cc: Dr. Faiza Mercado CNOVSP Observed: 02/05/2018 Status: COMPLETED Source: [place] 2:30 PM [facility] REPOSITORY Visit (SP) Office (HEMAWS) NITIN KINGSLEY ([id number]) 1935 M Date Time Provider Department 02/05/18 2:30 PM GILBERTO PUGA During your visit today, we recorded the following information about you: Temperature Pulse Blood pressure Weight 98.1 degrees 66/minute 162/80 72.1 kg Gilberto Puga MD 02/05/2018 4:04 PM Signed Start iron once daily for anemia AND monitor blood pressure at home AND follow up with Dr. Rogelio Puga MD 02/06/2018 7:42 AM Signed PATIENT NAME: Nitin Kingsley. CLINIC NO: [id number]. ATTENDING PHYSICIAN: Gilberto Puga MD. DATE OF SERVICE: 02/05/2018 ?? 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 HPI: Mr. 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 He had induction chemtherapy with 2CDA initially in November of 1997. He was in complete remission and he had a splenic recurrence in 2000. The patient subsequently had splenectomy, and second course of 2 CDA and went into complete remission again in February of 2004. The patient had his third recurrence with progressive anemia and pancytopenia in 2008. He received Rituxan and 2 CDA and was again in complete remission since 2008. ?? Since nursing home, he has increased fatigue and decreased stamina. Patient has no cough, shortness of breath. He has no fever, chills or night sweats. Weight and appetite remain stable. Patient also has a rising PSA level in history of prostate cancer. ?? He was diagnosed with prostate cancer and had Lupron injection and completed external beam radiation therapy for his prostate cancer last fall. Since that time, patient has increased fatigue. He had a GI evaluation for anemia recently?and it was negative. ?? Current treatment: Rituximab weekly x 4 ( 03/24/17 - 04/21/17 ) Vermurafenib 250mg once daily ( 05/28/17 - now?) ?? Interim history:?Patient completed his induction rituximab last year, he started Vermurafenib 250mg once daily in May 28, 2017?because persistent anemia and leukopenia. ?He has no fever, chills or night sweats. His White blood cell count as well as CD4 count continued improved on treatment.?He has no mouth sore, stomatitis or diarrhea. Patient has no sign of infection. ?only complaint is myalgia and skin cancer (Squamous cell) His blood pressure is also elevated since he started treatment. His weight and appetite has been stable. ? All medications AND?allergies updated and?reviewed by me. ?? REVIEW OF SYSTEMS: ?? CONSTITUTIONAL: No fevers, chills, nightsweats,?fatigue. HEENT: Denies frequent or severe heaches, nasal congestion/sinus symptoms, problematic allergy problems. EYES: No diplopia or blurry vision. CARDIOVASCULAR: No chest pain, dyspnea, palpitations, orthopnea, PND, ankle edema. PULM: No dyspnea, unexplained cough. GI: No dysphagia/odynophagia, problematic reflux, constipation, diarrhea, changes in stool habits, hematochezia, melena. : No new urinary complaints, including dysuria, gross hematuria or pyuria. NEURO: No new balance problems, peripheral weakness/paresthesias or numbness of concern. MUSC-SKEL: No new joint pain, swelling, or erythema. PSY: No concerns regarding depression, anxiety or panic. INTEGUMENTARY: No new skin changes (rash, new or changing mole, new growth) ?? PHYSICAL EXAMINATION: ?82-year-old well-nourished, well-developed gentleman in no distress Performance status 100% BP 162/80 Pulse 66 Temp (Src) 98.1 (Oral) Wt 159 lb (72.1kg) HEENT: Head is normocephalic, atraumatic. Sclerae white, conjunctivae pink. PEERL. EOMs are intact. Oropharynx is benign. No thrush LYMPHATICS: There is no palpable adenopathy in the neck, supraclavicular region, axillae, or groin. LUNGS: Lungs are clear to percussion and auscultation. HEART: Heart is normal without murmurs, gallops, or rubs. ABDOMEN: Soft and nontender without organomegaly. No masses can be palpated. EXTREMITIES: Are without edema. NEUROLOGIC: Exam is physiologic ?? LABORATORY DATA: Component Latest Ref Rng AND Units 01/28/2018 WBC, [place] 3.70 - 11.00 k/uL 4.93 RBC, [place] 4.20 - 6.00 m/uL 4.19 (L) Hemoglobin, [place] 13.0 - 17.0 g/dL 12.8 (L) Hematocrit, [place] 39.0 - 51.0 % 39.3 MCV, [place] 80.0 - 100.0 fL 93.8 MCH, [place] 26.0 - 34.0 pg 30.5 MCHC, [place] 30.5 - 36.0 g/dL 32.6 RDW, [place] 11.5 - 15.0 % 15.0 Platelet Cnt, [place] 150 - 400 k/uL 262 MPV, [place] 9.0 - 12.7 fL 9.7 Absol Gran Count 1.45 - 7.50 k/uL 3.20 Iron 41 - 186 ug/dL 38 (L) TIBC 232 - 386 ug/dL 352 Transferrin Saturation 15 - 57 % 11 (L) Ferritin 30.3 - 565.7 ng/mL 36.3 Component Latest Ref Rng AND Units 01/28/2018 Protein, Total 6.3 - 8.0 g/dL 6.3 Albumin 3.9 - 4.9 g/dL 4.0 Calcium 8.5 - 10.2 mg/dL 9.2 Bilirubin, Total 0.2 - 1.3 mg/dL 0.4 Alkaline Phosphatase 36 - 108 U/L 82 AST 14 - 40 U/L 19 Glucose 74 - 99 mg/dL 92 BUN 9 - 24 mg/dL 18 Creatinine 0.73 - 1.22 mg/dL 1.60 (H) Sodium 136 - 144 mmol/L 137 Potassium 3.7 - 5.1 mmol/L 4.5 Chloride 97 - 105 mmol/L 101 CO2 22 - 30 mmol/L 21 (L) Anion Gap 9 - 18 mmol/L 15 ALT 10 - 54 U/L 7 (L) eGFR- 51 eGFR-All Other Races . 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 In complete remission. -His?leukopenia and neutropenia have resolved.? -He is tolerating except for myalgia an skin cancer AND elevated blood pressure. ?? Anemia of chronic disease secondary to moderate renal failure, stage 3. AND iron deficiency-asymptomatic ? PLAN: - pentamidine and acyclovir were discontinued with no recurrent infection. - continue Vermurafenib 250mg once daily X 3 more months - increase fluid ( water 5 - 7 glasses daily ) - follow up with dermatology for skin cancer - start [id number] once daily for iron deficiency anemia. - repeat CBC, CMP, LDH AND?CD4 counts OV in 3 months - monitor blood pressure at home and follow up with PCP. ? Gilberto Puga MD ? Cc: Dr. Faiza Mercado Referring Provider: GILBERTO PUGA [[id number]] Allergies As of Date: 02/05/2018 Noted Allergy Reaction CIPRO (CIPROFLOXACIN) 09/26/2005 7 - Swelling 10 - Anaphylaxis ALLOPURINOL SODIUM 09/26/2005 2 - Rash BACTRIM (SULFAMETHOXAZOLE-TRIMETH*09/26/2005 2 - Rash IODINE (CONTRAST DYE) 09/26/2005 2 - Rash Comments: not a problem topically RITUXAN (RITUXIMAB) 03/24/2017 14 - Other: See Comments Comments: See nursing notes 03/24/18. Date Reviewed: 02/05/2018 Reviewed by: Oumou Yang - Fully Assessed Reason for Visit: Established Patient [175] Primary Visit Diagnosis:Hairy cell leukemia, in remission (HCC) [C91.41] Other Visit Diagnoses:Prostate cancer (HCC) [C61] Iron deficiency anemia, unspecified iron deficiency anemia type [D50.9] Order(s):iron polysaccharide complex (FERREX 150) 150 mg iron capsuleTake 1 capsule by mouth once daily.Disp: 100 capsuleRfl: 1 CD4 ABSOLUTE COUNT [[id number]] Order #: [id number] FUTURE Level of Service: EST PATIENT VISIT LEVEL 3 [11679] Disposition: Return in about 3 months (around 05/07/2018). Follow-up and Disposition History Recorded Prescriptions as of 02/05/2018 Sig: VEMURAFENIB 240 MG TABLET Take 1 tablet by mouth twice * PYRIDOXINE (VITAMIN B6) 100 M* Take 1 tablet by mouth once d* AMIODARONE 100 MG TABLET Take 100 mg by mouth once valerie* OMEPRAZOLE 40 MG CAPSULE,JESSICA* Take 1 capsule by mouth once * ATORVASTATIN 10 MG TABLET Take 10 mg by mouth once nelsy* * CARVEDILOL 6.25 MG TABLET Take 6.25 mg by mouth twice d* * FLOMAX 0.4 MG CAPSULE Take one(1) tablet daily. 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] INVALID FOR* Anemia, unspecified [D64.9] INVALID FOR*01/03/2011 Iron deficiency anemia, unspecified [D50.9] INVALID FOR*01/03/2011 Elevated Prostate Specific Antigen (PSA) [R97.2*INVALID FOR* Lymphopenia [D72.810] INVALID FOR* Kidney stone [N20.0] INVALID FOR* 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 Mercado Encounter Status:Closed by GILBERTO PUGA MD on 02/06/18 SUSAN ABS GR + CBC Collected: 01/28/2018 Status: F Source: [place] 4:05 PM [facility] REPOSITORY TYPE CODE TESTS RESULT OUT OF REFERENCE UNITS RANGE LAB WWBC 3.70-11.00 k/uL [place] WBC 4.93 LAB WRBC 4.20-6.00 m/uL Low [place] RBC 4.19 LAB WHGB 13.0-17.0 g/dL Low [place] Hemoglobin 12.8 LAB WHCT 39.0-51.0 % [place] Hematocrit 39.3 LAB WMCV 80.0-100.0 fL [place] MCV 93.8 LAB WMCH 26.0-34.0 pg [place] MCH 30.5 LAB WMCHC 30.5-36.0 g/dL [place] MCHC 32.6 LAB WRDW 11.5-15.0 % [place] RDW 15.0 LAB WPLT 150-400 k/uL [place] Platelet Cnt 262 LAB WMPV 9.0-12.7 fL [place] MPV 9.7 Result Comment: Test performed at: [facility] [place], [address] [place] [address]. LAB ABGRAN 1.45-7.50 k/uL Absol Gran 3.20 Count IRON AND TIBC Collected: 01/28/2018 Status: F Source: [place] 4:05 PM [facility] REPOSITORY TYPE CODE TESTS RESULT OUT OF REFERENCE UNITS RANGE LAB IRN 41-186 ug/dL Low Iron 38 LAB TIBC 232-386 ug/dL TIBC 352 LAB SAT 15-57 % Low Transferrin Saturatn 11 Performed By: #### IRON, CMP, LD6, FERR #### [facility] [address] [place] [address] COMP METABOLIC PANEL Collected: 01/28/2018 Status: F Source: [place] 4:05 PM [facility] REPOSITORY TYPE CODE TESTS RESULT OUT OF REFERENCE UNITS RANGE LAB TP 6.3-8.0 g/dL Protein, Total 6.3 LAB ALB 3.9-4.9 g/dL Albumin 4.0 LAB CA 8.5-10.2 mg/dL Calcium, Total 9.2 LAB TBIL 0.2-1.3 mg/dL Bilirubin, Total 0.4 LAB ALKP 36-108 U/L Alkaline Phosphatase 82 LAB AST 14-40 U/L AST 19 LAB GLU 74-99 mg/dL Glucose 92 Result Comment: The [place] [employer] (ADA) provides guidance for cutoff values for fasting glucose and random glucose. The ADA defines fasting as no caloric intake for at least 8 hours. Fas ting plasma glucose results between 100 to 125 mg/dL indicate increased risk for diabetes (prediabetes). Fasting plasma glucose results greater than or equal to 126 mg/dL meet the criteria for diagnosis of diabetes. In the absence of unequivocal hyperglycemia, results should be confirmed by repeat testing. In a patient with classic symptoms of hyperglycemia or hyperglycemic crisis, random plasma glucose results greater than or equal to 200 mg/dL meet the criteria for diagnosis of diabetes. Reference: Standards of Medical Care in Diabetes 2016, [place] [employer]. Diabetes Care. 2016.39(Suppl 1). LAB BUN 9-24 mg/dL BUN 18 LAB CRET 0.73-1.22 mg/dL Creatinine High 1.60 LAB NA 136-144 mmol/L Sodium 137 LAB K 3.7-5.1 mmol/L Potassium 4.5 LAB CL 97-105 mmol/L Chloride 101 LAB CO2 22-30 mmol/L Low CO2 21 LAB AGAP 9-18 mmol/L Anion Gap 15 LAB ALT 10-54 U/L Low ALT 7 LAB GFRAA eGFR- Amer. 51 LAB GFRNAA . eGFR-All Other Races 42 Result Comment: eGFR (Estimated GFR) Units of measure: mL/min/1.73 meters squared eGFR is derived from the reexpressed MDRD Study equation using the following parameters: serum creatinine, age, gender and race. The creatinine assay has been calibrated to be traceable to IDMS. An eGFR <60 mL/min/1.73m2 for >3 months is consistent with chronic kidney disease. Refer to KDOQI guidelines for clinical interpretation. In patients with unstable renal function, e.g. those with acute kidney injury, the eGFR may not accurately reflect actual GFR. Performed By: #### IRON, CMP, LD6, FERR #### [facility] [address] [place] [address] LD Collected: 01/28/2018 Status: F Source: [facility] 4:05 PM [facility] REPOSITORY TYPE CODE TESTS RESULT OUT OF RANGE REFERENCE UNITS LAB LD 135-225 U/L LD 157 Performed By: #### IRON, CMP, LD6, FERR #### [facility] [address] [place] [address] FERRITIN Collected: 01/28/2018 Status: F Source: [place] 4:05 PM [facility] REPOSITORY TYPE CODE TESTS RESULT OUT OF REFERENCE UNITS RANGE LAB FERR 30.3-565.7 ng/mL Ferritin 36.3 Performed By: #### IRON, CMP, LD6, FERR #### [facility] [address] [place] [id number] CARDIOLOGY VISIT Observed: 11/19/2017 Status: F Source: S[facility]AN REPORT 10:17 AM [facility] REPOSITORY [place] [facility] [address] [place] [address] OFFICE VISIT Date of Service: 11/04/17 MR#: [id number] Acct: [id number] Name: NITIN KINGSLEY Rep #: [id number] : 1935 Provider: Diana Benton Age/Sex: 81/M Location: [facility] [place] Status: Signed HPI HPI Details: NITIN KINGSLEY, is a 81 M who presents to the office today for a cardiovascular follow-up. He has a history of atrial fibrillation with RVR in the setting of GI bleed with hemorrhagic shock. He also has a history of Hairy-cell leukemia and hyperlipidemia. EKG demonstrates sinus rhythm with a heart rate of 62. From a cardiac standpoint, patient is doing well. He is currently undergoing chemotherapy for his leukemia. He does not have any chest discomfort/heaviness/tightness. His exercise tolerance is stable for his age. He does not have any worsening symptoms of shortness of breath. He denies any PND. He does not have any orthopnea. He does not have any symptoms of congestive heart failure. He does not have any palpitations that he is aware of. He does not have any lightheadedness or dizziness. He does not have any near-syncope or syncope. He does not have any lower extremity edema. He does not have any symptoms of claudication. 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 Accompanied by: friend Is patient in pain?: No Allergies allopurinol Allergy (Verified 11/04/17 15:26) Swelling ciprofloxacin [From Cipro] Allergy (Verified 11/04/17 15:26) Unknown ciprofloxacin HCl [From Cipro] Allergy (Verified 11/04/17 15:26) Unknown iodine Allergy (Verified 11/04/17 15:26) Unknown sulfamethoxazole [From Bactrim] Allergy (Verified 11/04/17 15:26) Unknown trimethoprim [From Bactrim] Allergy (Verified 11/04/17 15:26) Unknown Medications Carvedilol [Coreg] 6.25 mg PO BID 09/06/14 [History Confirmed 11/04/17] Tamsulosin HCl [Flomax] 0.4 mg PO DAILY 09/06/14 [History Confirmed 11/04/17] atorvastatin 10 mg tablet 10 mg PO QDAY #90 tab 06/15/17 [Rx Confirmed 11/04/17] amiodarone 200 mg tablet 100 mg PO QDAY #45 tab 08/28/17 [Rx Confirmed 11/04/17] acyclovir 200 mg capsule 200 mg PO BID cap 09/29/17 [History Confirmed 11/04/17] ferrous gluconate 324 mg (36 mg iron) tablet 324 mg PO QDAY tab 11/04/17 [History Confirmed 11/04/17] vemurafenib 240 mg tablet PO 28 Days #56 11/04/17 [History Confirmed 11/04/17] Ejection fraction %: 60 to 64 PFSH Medical History Hyperlipidemia (Chronic) Atrial flutter (Chronic) Paroxysmal atrial fibrillation (Chronic) Hypertension (Chronic) Surgical History H/O splenectomy (Resolved) History of tonsillectomy (Resolved) Social History Smoking Status: Former smoker alcohol intake: never caffeine: Yes Type: coffee Number of servings: 2 what type of physical activity do you participate in: none ROS Const Const: Positive for fatigue; negative for weakness, fever(s) or headache(s) Eyes Eyes: Negative for blind spots, loss of peripheral vision or transient loss of vision ENT ENT: Negative for headache(s), dizziness, tinnitus or Nosebleed/epistaxis Cardio Chest Pain: No Palpitations: No Edema: None Muscle aches with walking: None Resp Respiratory: Negative for SOB with activity, SOB at rest, SOB orthopnea\SOB lying down or Cough GI GI: Negative nausea, vomiting, heartburn or vomiting blood/hematemesis : Negative for hematuria Musc Musc: Negative for muscle aches/ myalgia Neuro Neuro: Negative for weakness, headache(s), dizziness, near syncope, syncope, lightheadedness or orthostatic symptoms Jacob Hematologic/Lymphatic: Negative for easy bleeding Endo Endo: Positive for fatigue Cardiology Exam Const Appearance: cooperative, no acute distress and well developed Orientation: alert, awake and oriented x3 Head Head: normocephalic and atraumatic Mouth: moist mucous membranes Eyes General: appearance normal, both eyes and all related structures Conjunctivae: conjunctivae normal Pupils: PERRL EOM: EOM intact bilaterally Neck Neck: normal visual inspection, no lymphadenopathy and no JVD Carotids: Negative bruit Neck Mass: Negative Neck mass Chest Chest inspection: normal inspection of the chest and symmetric chest movement Auscultation: Bilateral: Clear to Auscultation Cardio Palpation: normal PMI Rate: regular rate Rhythm: regular rhythm Heart sounds: S1 normal and S2 normal; negative rub, gallop or murmur GI GI: normal to inspection, soft, no hepatosplenomegaly and bowel sounds present; negative tender Neuro General: alert, awake, oriented x3, CN's II-XI intact bilaterally and moves all extremities Extremities Pulses: Normal: Right Posterior Tibial Pulse, Left Posterior Tibial Pulse, Right Radial Pulse, Left Radial Pulse Lower Extremity Edema: None: Bilateral Psych Psychological: normal affect Supplemental Info Stress test is negative for ischemia. This was done in 2014. Echocardiogram at that time demonstrated moderate aortic insufficiency. Ejection fraction 55-60%. Assessment AND Plan 1. Paroxysmal atrial fibrillation I48.0 Plan - ARLETTE Leonard Patient is currently on amiodarone at a low dose. Will continue to monitor his thyroid and hepatic panels closely. Will also continue to monitor pulmonary function test and chest x-rays. He will also continue with his beta-michelle. He is not anticoagulated due to his history of GI bleed and hemorrhagic shock.. Orders Orders: 2. Essential hypertension I10 Plan - ARLETTE Leonard Adequately controlled on current medications. Orders Orders: Plan Detail Other Orders Orders: Other Medications Discontinued: hydrocodone-acetaminophen 5-325 mg Discontinued Reason:1 - 2 tabs PO Q4H PRN PRN Pain Updating EMR/Pt no longer on Additional Comments - ARLETTE Leonard The above patient was discussed with Dr. Gonzalez, he agrees with plan of care. Thank you for allowing us to participate in patient's plan of care, if you have any questions please do not hesitate to call. This note was generated using a voice recognition system and there may be incorrect words, spelling or punctuation errors that were not noted when reviewing the office note prior to saving. Follow Up 11/04/17 (Please see if TSh was done at [facility], if it was then he does not need to have labs done today. 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) Coding Level of Care Code Off vis,est,level 3 Diagnoses Paroxysmal atrial fibrillation I48.0 Essential hypertension I10 Hypertension type: essential hypertension Coding Level of Care Code Off vis,est,level 3 Diagnoses Paroxysmal atrial fibrillation I48.0 Essential hypertension I10 Hypertension type: essential hypertension 11/19/17 1010 <Electronically signed by Diana Benton PA> Date Diana CHONG 11/19/17 1017<Electronically signed by Vasquez Gonzalez MD> Cosigner Signature: Date (if applicable) Vasquez Gonzalez MD CC: Faiza Mercado MD PROGRESS Observed: 11/05/2017 Status: COMPLETED Source: [place] 4:14 PM [facility] REPOSITORY O ID: [id number] Author: Gilberto Puga Service: (none) Author Type: Physician Type: Progress Notes Filed: 11/06/2017 8:25 AM Note Text: PATIENT NAME: Nitin Kingsley. CLINIC NO: [id number]. ATTENDING PHYSICIAN: Gilberto Puga MD. DATE OF SERVICE: 11/05/2017 ?? DIAGNOSIS: Hairy cell leukemia, status-?post splenectomy,??+?BRAF?V600E mutation, IN complete remission ?? HPI: Mr. Kingsley is a 81 -year-old gentleman who was diagnosed with hairy cell leukemia almost 20 years ago. He had induction chemtherapy with 2CDA initially in November of 1997. He was in complete remission and he had a splenic recurrence in 2000. The patient subsequently had splenectomy, and second course of 2 CDA and went into complete remission again in February of 2004. The patient had his third recurrence with progressive anemia and pancytopenia in 2008. He received Rituxan and 2 CDA and was again in complete remission since 2008. ?? Since nursing home, he has increased fatigue and decreased stamina. Patient has no cough, shortness of breath. He has no fever, chills or night sweats. Weight and appetite remain stable. Patient also has a rising PSA level in history of prostate cancer. ?? He was diagnosed with prostate cancer and had Lupron injection and completed external beam radiation therapy for his prostate cancer last fall. Since that time, patient has increased fatigue. He had a GI evaluation for anemia recently?and it was negative. ?? Current treatment: Rituximab weekly x 4 ( 03/24/17 - 04/21/17 ) Vermurafenib 250mg once daily ( 05/28/17 - 11/05/17?) ?? Interim history:?Patient completed his induction rituximab last year, follow-up I Vermurafenib 250mg once daily in May 28, 2017 because persistent anemia and leukopenia. He has no fever, chills or night sweats. His White blood cell count as well as CD4 count continued improved on treatment. He has no mouth sore, stomatitis or diarrhea. Patient has no sign of infection. ?only complaint is myalgia and skin lesions consistent with actinic keratosis and occasional skin cancer (Squamous cell) ? All medications AND?allergies updated and?reviewed by me. ?? REVIEW OF SYSTEMS: ?? CONSTITUTIONAL: No fevers, chills, nightsweats,?fatigue. HEENT: Denies frequent or severe heaches, nasal congestion/sinus symptoms, problematic allergy problems. EYES: No diplopia or blurry vision. CARDIOVASCULAR: No chest pain, dyspnea, palpitations, orthopnea, PND, ankle edema. PULM: No dyspnea, unexplained cough. GI: No dysphagia/odynophagia, problematic reflux, constipation, diarrhea, changes in stool habits, hematochezia, melena. : No new urinary complaints, including dysuria, gross hematuria or pyuria. NEURO: No new balance problems, peripheral weakness/paresthesias or numbness of concern. MUSC-SKEL: No new joint pain, swelling, or erythema. PSY: No concerns regarding depression, anxiety or panic. INTEGUMENTARY: No new skin changes (rash, new or changing mole, new growth) ?? PHYSICAL EXAMINATION: ?81-year-old well-nourished, well-developed gentleman in no distress Performance status 100% BP 159/72 Pulse 64 Temp 98.3 Wt 161 lb (73.0kg) HEENT: Head is normocephalic, atraumatic. Sclerae white, conjunctivae pink. PEERL. EOMs are intact. Oropharynx is benign. No thrush LYMPHATICS: There is no palpable adenopathy in the neck, supraclavicular region, axillae, or groin. LUNGS: Lungs are clear to percussion and auscultation. HEART: Heart is normal without murmurs, gallops, or rubs. ABDOMEN: Soft and nontender without organomegaly. No masses can be palpated. EXTREMITIES: Are without edema. NEUROLOGIC: Exam is physiologic ?? LABORATORY DATA: Component Latest Ref Rng AND Units 10/29/2017 WBC, [place] 3.70 - 11.00 k/uL 5.90 RBC, [place] 4.20 - 6.00 m/uL 3.84 (L) Hemoglobin, [place] 13.0 - 17.0 g/dL 12.2 (L) Hematocrit, [place] 39.0 - 51.0 % 37.0 (L) MCV, [place] 80.0 - 100.0 fL 96.4 MCH, [place] 26.0 - 34.0 pg 31.8 MCHC, [place] 30.5 - 36.0 g/dL 33.0 RDW, [place] 11.5 - 15.0 % 16.2 (H) Platelet Cnt, [place] 150 - 400 k/uL 259 MPV, [place] 9.0 - 12.7 fL 10.0 Absol Gran Count 1.45 - 7.50 k/uL 4.27 Component Latest Ref Rng AND Units 10/29/2017 Protein, Total 6.3 - 8.0 g/dL 6.5 Albumin 3.9 - 4.9 g/dL 4.0 Calcium 8.5 - 10.2 mg/dL 8.9 Bilirubin, Total 0.2 - 1.3 mg/dL 0.5 Alkaline Phosphatase 36 - 108 U/L 82 AST 14 - 40 U/L 14 Glucose 74 - 99 mg/dL 133 (H) BUN 9 - 24 mg/dL 20 Creatinine 0.73 - 1.22 mg/dL 1.45 (H) Sodium 136 - 144 mmol/L 138 Potassium 3.7 - 5.1 mmol/L 4.4 Chloride 97 - 105 mmol/L 105 CO2 22 - 30 mmol/L 19 (L) Anion Gap 9 - 18 mmol/L 14 ALT 10 - 54 U/L 5 (L) eGFR- 57 eGFR-All Other Races . 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 In complete remission. -His?leukopenia and neutropenia have resolved.? -He is tolerating except for myalgia an skin lesions. CD4 count has been above 200 x 6 months. ?? anemia of chronic disease secondary to moderate renal failure, stage 3.-asymptomatic PLAN: - continue pentamidine 300mg x1 next month and discontinue acyclovir AND pentamadine after November. - continue Vermurafenib 250mg once daily - increase fluid ( water 5 - 7 glasses daily ) - follow up with dermatology for skin cancer screening. - repeat CBC, CMP, LDH AND?iron study OV in 3 months Gilberto Puga MD ? Cc: Dr. Faiza Mercado CNOVSP Observed: 11/05/2017 Status: COMPLETED Source: [place] 4:00 PM [facility] REPOSITORY Visit (SP) Office (NATI) NITIN KINGSLEY ([id number]) 1935 M Date Time Provider Department 11/05/17 4:00 PM GILBERTO PUGA During your visit today, we recorded the following information about you: Temperature Pulse Blood pressure Weight 98.3 degrees 64/minute 159/72 73 kg Vy Mchugh LPN, LPN 11/05/2017 4:04 PM Signed Est pt. Discuss recent lab results JUAN DAVID Camejo MD 11/05/2017 4:12 PM Signed See Supervisor Forming And Tempering for skin cancer screening Gilberto Puga MD 11/06/2017 8:25 AM Signed PATIENT NAME: Nitin Kingsley. CLINIC NO: [id number]. ATTENDING PHYSICIAN: Gilberto Puga MD. DATE OF SERVICE: 11/05/2017 ?? DIAGNOSIS: Hairy cell leukemia, status-?post splenectomy,??+?BRAF?V600E mutation, IN complete remission ?? HPI: Mr. Kingsley is a 81 -year-old gentleman who was diagnosed with hairy cell leukemia almost 20 years ago. He had induction chemtherapy with 2CDA initially in November of 1997. He was in complete remission and he had a splenic recurrence in 2000. The patient subsequently had splenectomy, and second course of 2 CDA and went into complete remission again in February of 2004. The patient had his third recurrence with progressive anemia and pancytopenia in 2008. He received Rituxan and 2 CDA and was again in complete remission since 2008. ?? Since nursing home, he has increased fatigue and decreased stamina. Patient has no cough, shortness of breath. He has no fever, chills or night sweats. Weight and appetite remain stable. Patient also has a rising PSA level in history of prostate cancer. ?? He was diagnosed with prostate cancer and had Lupron injection and completed external beam radiation therapy for his prostate cancer last fall. Since that time, patient has increased fatigue. He had a GI evaluation for anemia recently?and it was negative. ?? Current treatment: Rituximab weekly x 4 ( 03/24/17 - 04/21/17 ) Vermurafenib 250mg once daily ( 05/28/17 - 11/05/17?) ?? Interim history:?Patient completed his induction rituximab last year, follow-up I Vermurafenib 250mg once daily in May 28, 2017 because persistent anemia and leukopenia. He has no fever, chills or night sweats. His White blood cell count as well as CD4 count continued improved on treatment. He has no mouth sore, stomatitis or diarrhea. Patient has no sign of infection. ?only complaint is myalgia and skin lesions consistent with actinic keratosis and occasional skin cancer (Squamous cell) ? All medications AND?allergies updated and?reviewed by me. ?? REVIEW OF SYSTEMS: ?? CONSTITUTIONAL: No fevers, chills, nightsweats,?fatigue. HEENT: Denies frequent or severe heaches, nasal congestion/sinus symptoms, problematic allergy problems. EYES: No diplopia or blurry vision. CARDIOVASCULAR: No chest pain, dyspnea, palpitations, orthopnea, PND, ankle edema. PULM: No dyspnea, unexplained cough. GI: No dysphagia/odynophagia, problematic reflux, constipation, diarrhea, changes in stool habits, hematochezia, melena. : No new urinary complaints, including dysuria, gross hematuria or pyuria. NEURO: No new balance problems, peripheral weakness/paresthesias or numbness of concern. MUSC-SKEL: No new joint pain, swelling, or erythema. PSY: No concerns regarding depression, anxiety or panic. INTEGUMENTARY: No new skin changes (rash, new or changing mole, new growth) ?? PHYSICAL EXAMINATION: ?81-year-old well-nourished, well-developed gentleman in no distress Performance status 100% BP 159/72 Pulse 64 Temp 98.3 Wt 161 lb (73.0kg) HEENT: Head is normocephalic, atraumatic. Sclerae white, conjunctivae pink. PEERL. EOMs are intact. Oropharynx is benign. No thrush LYMPHATICS: There is no palpable adenopathy in the neck, supraclavicular region, axillae, or groin. LUNGS: Lungs are clear to percussion and auscultation. HEART: Heart is normal without murmurs, gallops, or rubs. ABDOMEN: Soft and nontender without organomegaly. No masses can be palpated. EXTREMITIES: Are without edema. NEUROLOGIC: Exam is physiologic ?? LABORATORY DATA: Component Latest Ref Rng AND Units 10/29/2017 WBC, [place] 3.70 - 11.00 k/uL 5.90 RBC, [place] 4.20 - 6.00 m/uL 3.84 (L) Hemoglobin, [place] 13.0 - 17.0 g/dL 12.2 (L) Hematocrit, [place] 39.0 - 51.0 % 37.0 (L) MCV, [place] 80.0 - 100.0 fL 96.4 MCH, [place] 26.0 - 34.0 pg 31.8 MCHC, [place] 30.5 - 36.0 g/dL 33.0 RDW, [place] 11.5 - 15.0 % 16.2 (H) Platelet Cnt, [place] 150 - 400 k/uL 259 MPV, [place] 9.0 - 12.7 fL 10.0 Absol Gran Count 1.45 - 7.50 k/uL 4.27 Component Latest Ref Rng AND Units 10/29/2017 Protein, Total 6.3 - 8.0 g/dL 6.5 Albumin 3.9 - 4.9 g/dL 4.0 Calcium 8.5 - 10.2 mg/dL 8.9 Bilirubin, Total 0.2 - 1.3 mg/dL 0.5 Alkaline Phosphatase 36 - 108 U/L 82 AST 14 - 40 U/L 14 Glucose 74 - 99 mg/dL 133 (H) BUN 9 - 24 mg/dL 20 Creatinine 0.73 - 1.22 mg/dL 1.45 (H) Sodium 136 - 144 mmol/L 138 Potassium 3.7 - 5.1 mmol/L 4.4 Chloride 97 - 105 mmol/L 105 CO2 22 - 30 mmol/L 19 (L) Anion Gap 9 - 18 mmol/L 14 ALT 10 - 54 U/L 5 (L) eGFR- 57 eGFR-All Other Races . 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 In complete remission. -His?leukopenia and neutropenia have resolved.? -He is tolerating except for myalgia an skin lesions. CD4 count has been above 200 x 6 months. ?? anemia of chronic disease secondary to moderate renal failure, stage 3.-asymptomatic PLAN: - continue pentamidine 300mg x1 next month and discontinue acyclovir AND pentamadine after November. - continue Vermurafenib 250mg once daily - increase fluid ( water 5 - 7 glasses daily ) - follow up with dermatology for skin cancer screening. - repeat CBC, CMP, LDH AND?iron study OV in 3 months Gilberto Puga MD ? Cc: Dr. Faiza Mercado Referring Provider: GILBERTO PUGA [[id number]] Allergies As of Date: 11/05/2017 Noted Allergy Reaction CIPRO (CIPROFLOXACIN) 09/26/2005 7 - Swelling 10 - Anaphylaxis ALLOPURINOL SODIUM 09/26/2005 2 - Rash BACTRIM (SULFAMETHOXAZOLE-TRIMETH*09/26/2005 2 - Rash IODINE (CONTRAST DYE) 09/26/2005 2 - Rash Comments: not a problem topically RITUXAN (RITUXIMAB) 03/24/2017 14 - Other: See Comments Comments: See nursing notes 03/24/18. Date Reviewed: 08/28/2017 Reviewed by: Oumou Yang - Fully Assessed Reason for Visit: Established Patient [175] Primary Visit Diagnosis:Hairy cell leukemia, in remission (HCC) [C91.41] Order(s):vemurafenib (ZELBORAF) 240 mg tabTake 1 tablet by mouth twice daily.Disp: 60 tabletRfl: 0 Level of Service: EST PATIENT VISIT LEVEL 3 [[id number]] Disposition: Return in about 3 months (around 02/05/2018). Follow-up and Disposition History Recorded Prescriptions as of 11/05/2017 Sig: VEMURAFENIB 240 MG TABLET Take 1 tablet by mouth twice * PYRIDOXINE (VITAMIN B6) 100 M* Take 1 tablet by mouth once d* AMIODARONE 100 MG TABLET Take 100 mg by mouth once valerie* OMEPRAZOLE 40 MG CAPSULE,JESSICA* Take 1 capsule by mouth once * ATORVASTATIN 10 MG TABLET Take 10 mg by mouth once nelsy* * CARVEDILOL 6.25 MG TABLET Take 6.25 mg by mouth twice d* * FLOMAX 0.4 MG CAPSULE Take one(1) tablet daily. 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 Discuss recent lab results Vy Mchugh LPN Encounter Status:Closed by GILBERTO PUGA MD on 11/06/17 T4 TOTAL, THYROXIN Collected: 11/05/2017 Status: F Source: [place] 3:29 PM [facility] REPOSITORY TYPE CODE TESTS RESULT OUT OF REFERENCE UNITS RANGE LAB L501.9310 4.5-12.1 ug/dL T4 High THYROXIN 14.4 Performed By: #### L501.9310, L501.9520 #### Laboratory [address] [place], [address] THYROID STIM HORMONE Collected: 11/05/2017 Status: F Source: [place] (TSH) 3:29 PM [facility] REPOSITORY TYPE CODE TESTS RESULT OUT OF RANGE REFERENCE UNITS LAB L501.9520 0.358-3.74 uIU/mL High TSH 4.34 Performed By: #### L501.9310, L501.9520 #### Laboratory [address] [place], [address] 12 LEAD EKG PERFORMED Observed: 11/04/2017 Status: F Source: [place] BY [facility] 3:06 PM [facility] REPOSITORY [facility] [address] [place] [address] 12 Lead EKG performed by [facility] 11/04/17 1505 MR#: [id number] Acct: [id number] Name: NITIN KINGSLEY Rep #: [id number] : 1935 81 From: Diana CHONG Attending Dr: Diana Benton Status: DEP AMB Ordering Dr: Diana Benton Date: 11/04/17 Location: [facility] Sex: M C Admitted: [facility]/12 Lead EKG performed by [facility] ECG Report Interpretation Sinus Rhythm WITHIN NORMAL LIMITSElectronically signed on 11/30/2017 at 17:29 by Vasquez Gonzalez 11/30/17 1730 Date Diana CHONG CC: Faiza Mercado MD Date Dictated: 11/04/17 150 Date Transcribed: 11/04/171504 Recruiter Specialist: KAVIN Signed CD4 ABSOLUTE COUNT Collected: 10/29/2017 Status: F Source: [place] 4:01 [facility] REPOSITORY TYPE CODE TESTS RESULT OUT OF REFERENCE UNITS RANGE LAB XCD3P 60-89 % 72 CD3+ T Cell % LAB XCD3N [id number] Cells/uL 487 Low CD3+ T Cell No. LAB XCD4P 34-61 % 55 CD4+CD3+ T Cell % LAB XCD4N 533-1674 Cells/uL 369 Low CD4+CD3+ T Cell No. LAB XCOMNT Clinical CD4 interpretation of Comment lymphocyte subsets must be made with caution. Relative and absolute values may be profoundly affected by immunosuppressive or cytotoxic therapy, and be abnormal in a wide variety of infectious, inflammatory, autoimmune and neoplastic disorders. Result Comment: The following number of cluster designated antibodies were used for the definition of the above reported populations: CD3 and CD4. (CD45 used for gating.) This test was developed and its performance characteristics determined by [facility]'s Eliseo Wong [facility] Pathology and Laboratory Medicine [place] ([facility]). It has not been cleared or approved by the FDA. [facility] is regulated under CLIA as qualified to perform high-complexity testing. This test is used for clinical purposes. It should not be regarded as investigational or for research. Performed By: #### CD4ABS #### [facility] [address] [place], [place] [address] SUSAN ABS GR + CBC Collected: 10/29/2017 Status: F Source: [place] 4:00 PM [facility] REPOSITORY TYPE CODE TESTS RESULT OUT OF REFERENCE UNITS RANGE LAB WWBC 3.70-11.00 k/uL [place] WBC 5.90 LAB WRBC 4.20-6.00 m/uL Low [place] RBC 3.84 LAB WHGB 13.0-17.0 g/dL Low [place] Hemoglobin 12.2 LAB WHCT 39.0-51.0 % Low [place] Hematocrit 37.0 LAB WMCV 80.0-100.0 fL Susan MCV 96.4 LAB WMCH 26.0-34.0 pg [place] MCH 31.8 LAB WMCHC 30.5-36.0 g/dL Susan MCHC 33.0 LAB WRDW 11.5-15.0 % Susan High RDW 16.2 LAB WPLT 150-400 k/uL [place] Platelet Cnt 259 LAB WMPV 9.0-12.7 fL Susan MPV 10.0 Result Comment: Test performed at: [facility] [place], [address] [place] [address]. LAB ABGRAN 1.45-7.50 k/uL Absol Gran 4.27 Count COMP METABOLIC PANEL Collected: 10/29/2017 Status: F Source: [place] 4:00 PM [facility] REPOSITORY TYPE CODE TESTS RESULT OUT OF REFERENCE UNITS RANGE LAB TP 6.3-8.0 g/dL Protein, Total 6.5 LAB ALB 3.9-4.9 g/dL Albumin 4.0 LAB CA 8.5-10.2 mg/dL Calcium, Total 8.9 LAB TBIL 0.2-1.3 mg/dL Bilirubin, Total 0.5 LAB ALKP 36-108 U/L Alkaline Phosphatase 82 LAB AST 14-40 U/L AST 14 LAB GLU 74-99 mg/dL Glucose High 133 Result Comment: The [place] Diabetes Association (ADA) provides guidance for cutoff values for fasting glucose and random glucose. The ADA defines fasting as no caloric intake for at least 8 hours. Fas ting plasma glucose results between 100 to 125 mg/dL indicate increased risk for diabetes (prediabetes). Fasting plasma glucose results greater than or equal to 126 mg/dL meet the criteria for diagnosis of diabetes. In the absence of unequivocal hyperglycemia, results should be confirmed by repeat testing. In a patient with classic symptoms of hyperglycemia or hyperglycemic crisis, random plasma glucose results greater than or equal to 200 mg/dL meet the criteria for diagnosis of diabetes. Reference: Standards of Medical Care in Diabetes 2016, [place] [employer] Association. Diabetes Care. 2016.39(Suppl 1). LAB BUN 9-24 mg/dL BUN 20 LAB CRET 0.73-1.22 mg/dL Creatinine High 1.45 LAB NA 136-144 mmol/L Sodium 138 LAB K 3.7-5.1 mmol/L Potassium 4.4 LAB CL 97-105 mmol/L Chloride 105 LAB CO2 22-30 mmol/L Low CO2 19 LAB AGAP 9-18 mmol/L Anion Gap 14 LAB ALT 10-54 U/L Low ALT 5 LAB GFRAA eGFR- Amer. 57 LAB GFRNAA . eGFR-All Other Races 47 Result Comment: eGFR (Estimated GFR) Units of measure: mL/min/1.73 meters squared eGFR is derived from the reexpressed MDRD Study equation using the following parameters: serum creatinine, age, gender and race. The creatinine assay has been calibrated to be traceable to IDMS. An eGFR <60 mL/min/1.73m2 for >3 months is consistent with chronic kidney disease. Refer to KDOQI guidelines for clinical interpretation. In patients with unstable renal function, e.g. those with acute kidney injury, the eGFR may not accurately reflect actual GFR. Performed By: #### CMP, LD6 #### [facility] [address] [place], [place] [address] LD Collected: 10/29/2017 Status: F Source: [facility] 4:00 PM [facility] REPOSITORY TYPE CODE TESTS RESULT OUT OF RANGE REFERENCE UNITS LAB LD 135-225 U/L LD 172 Performed By: #### CMP, LD6 #### [facility] [address] [place], [place] [address] CNCO Observed: 09/03/2017 Status: COMPLETED Source: [place] 12:00 AM [facility] REPOSITORY Letter Text [address] [place] [address] [phone] 09/03/2017 Nitin Kingsley [address] [place] [id number] Dear Mr. Kingsley: Due to a change in the provider's schedule, it has been necessary to reschedule your appointment. Enclosed please find a new appointment reminder that will replace the one previously sent to you. If this appointment is not convenient for you, please contact our office at [phone]. Thank you for choosing the [facility] as your Healthcare Provider. Sincerely, Appointment Office CNOVSP Observed: 08/28/2017 Status: COMPLETED Source: [place] 2:10 PM [facility] REPOSITORY Visit (SP) Office (NAT[place]) NITIN KINGSLEY ([id number]) 1935 M Date Time Provider Department 08/28/17 2:10 PM GILBERTO PUGA During your visit today, we recorded the following information about you: Temperature Pulse Blood pressure Weight 97.7 degrees 68/minute 142/70 73 kg Gilberto Puga MD 08/29/2017 8:19 AM Signed PATIENT NAME: Nitin Kingsley. CLINIC NO: [id number]. ATTENDING PHYSICIAN: Gilberto Puga MD. DATE OF SERVICE: 08/28/2017 ?? 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 HPI: Mr. 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 He had induction chemtherapy with 2CDA initially in November of 1997. He was in complete remission and he had a splenic recurrence in 2000. The patient subsequently had splenectomy, and second course of 2 CDA and went into complete remission again in February of 2004. The patient had his third recurrence with progressive anemia and pancytopenia in 2008. He received Rituxan and 2 CDA and was again in complete remission since 2008. ?? Since nursing home, he has increased fatigue and decreased stamina. Patient has no cough, shortness of breath. He has no fever, chills or night sweats. Weight and appetite remain stable. Patient also has a rising PSA level in history of prostate cancer. ?? He was diagnosed with prostate cancer and had Lupron injection and completed external beam radiation therapy for his prostate cancer last fall. Since that time, patient has increased fatigue. He had a GI evaluation for anemia recently?and it was negative. ?? Current treatment: Rituximab weekly x 4 ( 03/24/17 - 04/21/17 ) Vermurafenib 250mg once daily ( 05/28/17 - ) ?? Interim history:?Patient completed his induction rituximab last year. Started Vermurafenib 250mg once daily in May 28, 2017 because persistent anemia and leukopenia. He has no fever, chills or night sweats. His blood count as well as CD4 count continued improved with treatment. He has no mouth sore, stomatitis or diarrhea. Patient has no sign of infection. His only complaint is muscle aches since starting Vermurafenib. ? All medications ANDamp;?allergies updated and?reviewed by me. ?? REVIEW OF SYSTEMS: ?? CONSTITUTIONAL: No fevers, chills, nightsweats,?fatigue. HEENT: Denies frequent or severe heaches, nasal congestion/sinus symptoms, problematic allergy problems. EYES: No diplopia or blurry vision. CARDIOVASCULAR: No chest pain, dyspnea, palpitations, orthopnea, PND, ankle edema. PULM: No dyspnea, unexplained cough. GI: No dysphagia/odynophagia, problematic reflux, constipation, diarrhea, changes in stool habits, hematochezia, melena. : No new urinary complaints, including dysuria, gross hematuria or pyuria. NEURO: No new balance problems, peripheral weakness/paresthesias or numbness of concern. MUSC-SKEL: No new joint pain, swelling, or erythema. PSY: No concerns regarding depression, anxiety or panic. INTEGUMENTARY: No new skin changes (rash, new or changing mole, new growth) ?? PHYSICAL EXAMINATION: ?81-year-old well-nourished, well-developed gentleman in no distress Performance status 100% BP 142/70 Pulse 68 Temp (Src) 97.7 (Oral) Wt 161 lb (73.0kg) HEENT: Head is normocephalic, atraumatic. Sclerae white, conjunctivae pink. PEERL. EOMs are intact. Oropharynx is benign. No thrush LYMPHATICS: There is no palpable adenopathy in the neck, supraclavicular region, axillae, or groin. LUNGS: Lungs are clear to percussion and auscultation. HEART: Heart is normal without murmurs, gallops, or rubs. ABDOMEN: Soft and nontender without organomegaly. No masses can be palpated. EXTREMITIES: Are without edema. NEUROLOGIC: Exam is physiologic ?? LABORATORY DATA: ?? Component Latest Ref Rng ANDamp; Units 08/21/2017 Protein, Total 6.3 - 8.0 g/dL 6.5 Albumin 3.9 - 4.9 g/dL 4.0 Calcium 8.5 - 10.2 mg/dL 9.3 Bilirubin, Total 0.2 - 1.3 mg/dL 0.4 Alkaline Phosphatase 36 - 108 U/L 83 AST 14 - 40 U/L 20 Glucose 74 - 99 mg/dL 89 BUN 9 - 24 mg/dL 17 Creatinine 0.73 - 1.22 mg/dL 1.27 (H) Sodium 136 - 144 mmol/L 140 Potassium 3.7 - 5.1 mmol/L 4.4 Chloride 97 - 105 mmol/L 105 CO2 22 - 30 mmol/L 20 (L) Anion Gap 9 - 18 mmol/L 15 ALT 10 - 54 U/L 13 eGFR- ANDgt;60 eGFR-All Other Races . 55 WBC, [place] 3.70 - 11.00 k/uL 6.60 RBC, [place] 4.20 - 6.00 m/uL 3.79 (L) Hemoglobin, [place] 13.0 - 17.0 g/dL 12.4 (L) Hematocrit, [place] 39.0 - 51.0 % 37.7 (L) MCV, [place] 80.0 - 100.0 fL 99.5 MCH, [place] 26.0 - 34.0 pg 32.7 MCHC, [place] 30.5 - 36.0 g/dL 32.9 RDW, [place] 11.5 - 15.0 % 15.6 (H) Platelet Cnt, [place] 150 - 400 k/uL 280 MPV, [place] 9.0 - 12.7 fL 9.7 Absol Gran Count 1.45 - 7.50 k/uL 4.66 Retic % 0.4 - 2.0 % 1.5 Abs Retic 0.0180 - 0.1000 M/uL 0.057 Component Latest Ref Rng ANDamp; Units 08/21/2017 CD3+ T Cell % 60 - 89 % 70 CD3+ T Cell # 958 - 2388 Cells/uL 515 (L) CD4+CD3+ T Cell % 34 - 61 % 51 CD4+CD3+ T Cell # 533 - 1674 Cells/uL 379 (L) CD4 Comment Clinical interpretation of lymphocyte subsets must be made with caution. Relative . . . IgG 717 - 1411 mg/dL 559 (L) IgA 78 - 391 mg/dL 128 IgM 53 - 334 mg/dL 33 (L) ? 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 His?leukopenia and?anemia have improved. He is tolerating treatment except for myalgia CD4 count also improving. ?? PLAN: - Continue?antiviral and PCP prophylaxis with acyclovir 400mg twice daily?and pentamidine 300mg monthly - continue Vermurafenib 250mg once daily - CBC monthly x 2 - Repeat CBC, CMP, LDH ANDamp;?repeat CD4 counts OV in 8 weeks - stop PCP prophylaxis if CD4 counts above 500 Gilberto Puga MD ? Cc: Dr. Faiza Mercado Referring Provider: GILBERTO PUGA [[id number]] Allergies As of Date: 08/28/2017 Noted Allergy Reaction CIPRO (CIPROFLOXACIN) 09/26/2005 7 - Swelling 10 - Anaphylaxis ALLOPURINOL SODIUM 09/26/2005 2 - Rash BACTRIM (SULFAMETHOXAZOLE-TRIMETH*09/26/2005 2 - Rash IODINE (CONTRAST DYE) 09/26/2005 2 - Rash Comments: not a problem topically RITUXAN (RITUXIMAB) 03/24/2017 14 - Other: See Comments Comments: See nursing notes 03/24/18. 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 Follow-up and Disposition History Recorded Prescriptions as of 08/28/2017 Sig: VEMURAFENIB 240 MG TABLET Take 1 tablet by mouth twice * PYRIDOXINE (VITAMIN B6) 100 M* Take 1 tablet by mouth once d* AMIODARONE 100 MG TABLET Take 100 mg by mouth once valerie* OMEPRAZOLE 40 MG CAPSULE,JESSICA* Take 1 capsule by mouth once * ATORVASTATIN 10 MG TABLET Take 10 mg by mouth once nelsy* FERROUS GLUCONATE 324 MG (36 * Take 1 tablet by mouth once d* * CARVEDILOL 6.25 MG TABLET Take 6.25 mg by mouth twice d* * FLOMAX 0.4 MG CAPSULE Take one(1) tablet daily. 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 CLINIC NO: [id number]. ATTENDING PHYSICIAN: Gilberto Puga MD. DATE OF SERVICE: 08/28/2017 ?? 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 HPI: Mr. 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 He had induction chemtherapy with 2CDA initially in November of 1997. He was in complete remission and he had a splenic recurrence in 2000. The patient subsequently had splenectomy, and second course of 2 CDA and went into complete remission again in February of 2004. The patient had his third recurrence with progressive anemia and pancytopenia in 2008. He received Rituxan and 2 CDA and was again in complete remission since 2008. ?? Since nursing home, he has increased fatigue and decreased stamina. Patient has no cough, shortness of breath. He has no fever, chills or night sweats. Weight and appetite remain stable. Patient also has a rising PSA level in history of prostate cancer. ?? He was diagnosed with prostate cancer and had Lupron injection and completed external beam radiation therapy for his prostate cancer last fall. Since that time, patient has increased fatigue. He had a GI evaluation for anemia recently?and it was negative. ?? Current treatment: Rituximab weekly x 4 ( 03/24/17 - 04/21/17 ) Vermurafenib 250mg once daily ( 05/28/17 - ) ?? Interim history:?Patient completed his induction rituximab last year. Started Vermurafenib 250mg once daily in May 28, 2017 because persistent anemia and leukopenia. He has no fever, chills or night sweats. His blood count as well as CD4 count continued improved with treatment. He has no mouth sore, stomatitis or diarrhea. Patient has no sign of infection. His only complaint is muscle aches since starting Vermurafenib. ? All medications AND?allergies updated and?reviewed by me. ?? REVIEW OF SYSTEMS: ?? CONSTITUTIONAL: No fevers, chills, nightsweats,?fatigue. HEENT: Denies frequent or severe heaches, nasal congestion/sinus symptoms, problematic allergy problems. EYES: No diplopia or blurry vision. CARDIOVASCULAR: No chest pain, dyspnea, palpitations, orthopnea, PND, ankle edema. PULM: No dyspnea, unexplained cough. GI: No dysphagia/odynophagia, problematic reflux, constipation, diarrhea, changes in stool habits, hematochezia, melena. : No new urinary complaints, including dysuria, gross hematuria or pyuria. NEURO: No new balance problems, peripheral weakness/paresthesias or numbness of concern. MUSC-SKEL: No new joint pain, swelling, or erythema. PSY: No concerns regarding depression, anxiety or panic. INTEGUMENTARY: No new skin changes (rash, new or changing mole, new growth) ?? PHYSICAL EXAMINATION: ?81-year-old well-nourished, well-developed gentleman in no distress Performance status 100% BP 142/70 Pulse 68 Temp (Src) 97.7 (Oral) Wt 161 lb (73.0kg) HEENT: Head is normocephalic, atraumatic. Sclerae white, conjunctivae pink. PEERL. EOMs are intact. Oropharynx is benign. No thrush LYMPHATICS: There is no palpable adenopathy in the neck, supraclavicular region, axillae, or groin. LUNGS: Lungs are clear to percussion and auscultation. HEART: Heart is normal without murmurs, gallops, or rubs. ABDOMEN: Soft and nontender without organomegaly. No masses can be palpated. EXTREMITIES: Are without edema. NEUROLOGIC: Exam is physiologic ?? LABORATORY DATA: ?? Component Latest Ref Rng AND Units 08/21/2017 Protein, Total 6.3 - 8.0 g/dL 6.5 Albumin 3.9 - 4.9 g/dL 4.0 Calcium 8.5 - 10.2 mg/dL 9.3 Bilirubin, Total 0.2 - 1.3 mg/dL 0.4 Alkaline Phosphatase 36 - 108 U/L 83 AST 14 - 40 U/L 20 Glucose 74 - 99 mg/dL 89 BUN 9 - 24 mg/dL 17 Creatinine 0.73 - 1.22 mg/dL 1.27 (H) Sodium 136 - 144 mmol/L 140 Potassium 3.7 - 5.1 mmol/L 4.4 Chloride 97 - 105 mmol/L 105 CO2 22 - 30 mmol/L 20 (L) Anion Gap 9 - 18 mmol/L 15 ALT 10 - 54 U/L 13 eGFR- >60 eGFR-All Other Races . 55 WBC, [place] 3.70 - 11.00 k/uL 6.60 RBC, [place] 4.20 - 6.00 m/uL 3.79 (L) Hemoglobin, [place] 13.0 - 17.0 g/dL 12.4 (L) Hematocrit, [place] 39.0 - 51.0 % 37.7 (L) MCV, [place] 80.0 - 100.0 fL 99.5 MCH, [place] 26.0 - 34.0 pg 32.7 MCHC, [place] 30.5 - 36.0 g/dL 32.9 RDW, [place] 11.5 - 15.0 % 15.6 (H) Platelet Cnt, [place] 150 - 400 k/uL 280 MPV, [place] 9.0 - 12.7 fL 9.7 Absol Gran Count 1.45 - 7.50 k/uL 4.66 Retic % 0.4 - 2.0 % 1.5 Abs Retic 0.0180 - 0.1000 M/uL 0.057 Component Latest Ref Rng AND Units 08/21/2017 CD3+ T Cell % 60 - 89 % 70 CD3+ T Cell # 958 - 2388 Cells/uL 515 (L) CD4+CD3+ T Cell % 34 - 61 % 51 CD4+CD3+ T Cell # 533 - 1674 Cells/uL 379 (L) CD4 Comment Clinical interpretation of lymphocyte subsets must be made with caution. Relative . . . IgG 717 - 1411 mg/dL 559 (L) IgA 78 - 391 mg/dL 128 IgM 53 - 334 mg/dL 33 (L) ? 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 His?leukopenia and?anemia have improved. He is tolerating treatment except for myalgia CD4 count also improving. ?? PLAN: - Continue?antiviral and PCP prophylaxis with acyclovir 400mg twice daily?and pentamidine 300mg monthly - continue Vermurafenib 250mg once daily - CBC monthly x 2 - Repeat CBC, CMP, LDH AND?repeat CD4 counts OV in 8 weeks - stop PCP prophylaxis if CD4 counts above 500 Gilberto Puga MD ? Cc: Dr. Fa[place] Mercado [place] GR + CBC Collected: 08/21/2017 Status: F Source: [place] 2:55 PM [facility] REPOSITORY TYPE CODE TESTS RESULT OUT OF REFERENCE UNITS RANGE LAB WWBC 3.70-11.00 k/uL [place] WBC 6.60 LAB WRBC 4.20-6.00 m/uL Low [place] RBC 3.79 LAB WHGB 13.0-17.0 g/dL Low [place] Hemoglobin 12.4 LAB WHCT 39.0-51.0 % Low [place] Hematocrit 37.7 LAB WMCV 80.0-100.0 fL [place] MCV 99.5 LAB WMCH 26.0-34.0 pg [place] MCH 32.7 LAB WMCHC 30.5-36.0 g/dL [place] MCHC 32.9 LAB WRDW 11.5-15.0 % [place] High RDW 15.6 LAB WPLT 150-400 k/uL [place] Platelet Cnt 280 LAB WMPV 9.0-12.7 fL [place] MPV 9.7 Result Comment: Test performed at: [facility], [address] [place] [address]. LAB ABGRAN 1.45-7.50 k/uL Absol Gran 4.66 Count RETICULOCYTE Collected: 08/21/2017 Status: F Source: [place] 2:55 PM [facility] REPOSITORY TYPE CODE TESTS RESULT OUT OF REFERENCE UNITS RANGE LAB RETC 0.4-2.0 % Retic% 1.5 LAB ABRET 0.0180-0.1000 M/uL [place] Retic 0.057 Performed By: #### RETIC, CMP, SERIMM #### [facility] [address] [place] [id number] COMP METABOLIC PANEL Collected: 08/21/2017 Status: F Source: [place] 2:55 PM [facility] REPOSITORY TYPE CODE TESTS RESULT OUT OF REFERENCE UNITS RANGE LAB TP 6.3-8.0 g/dL Protein, Total 6.5 LAB ALB 3.9-4.9 g/dL Albumin 4.0 LAB CA 8.5-10.2 mg/dL Calcium, Total 9.3 LAB TBIL 0.2-1.3 mg/dL Bilirubin, Total 0.4 LAB ALKP 36-108 U/L Alkaline Phosphatase 83 LAB AST 14-40 U/L AST 20 LAB GLU 74-99 mg/dL Glucose 89 Result Comment: The [place] Diabetes Association (ADA) provides guidance for cutoff values for fasting glucose and random glucose. The ADA defines fasting as no caloric intake for at least 8 hours. Fas ting plasma glucose results between 100 to 125 mg/dL indicate increased risk for diabetes (prediabetes). Fasting plasma glucose results greater than or equal to 126 mg/dL meet the criteria for diagnosis of diabetes. In the absence of unequivocal hyperglycemia, results should be confirmed by repeat testing. In a patient with classic symptoms of hyperglycemia or hyperglycemic crisis, random plasma glucose results greater than or equal to 200 mg/dL meet the criteria for diagnosis of diabetes. Reference: Standards of Medical Care in Diabetes 2016, [place] Diabetes Association. Diabetes Care. 2016.39(Suppl 1). LAB BUN 9-24 mg/dL BUN 17 LAB CRET 0.73-1.22 mg/dL Creatinine High 1.27 LAB NA 136-144 mmol/L Sodium 140 LAB K 3.7-5.1 mmol/L Potassium 4.4 LAB CL 97-105 mmol/L Chloride 105 LAB CO2 22-30 mmol/L Low CO2 20 LAB AGAP 9-18 mmol/L Anion Gap 15 LAB ALT 10-54 U/L ALT 13 LAB GFRAA eGFR- Amer. >60 LAB GFRNAA . eGFR-All Other Races 55 Result Comment: eGFR (Estimated GFR) Units of measure: mL/min/1.73 meters squared eGFR is derived from the reexpressed MDRD Study equation using the following parameters: serum creatinine, age, gender and race. The creatinine assay has been calibrated to be traceable to IDMS. An eGFR <60 mL/min/1.73m2 for >3 months is consistent with chronic kidney disease. Refer to KDOQI guidelines for clinical interpretation. In patients with unstable renal function, e.g. those with acute kidney injury, the eGFR may not accurately reflect actual GFR. Performed By: #### RETIC, CMP, SERIMM #### [facility] [employer] [address] [place] [address] IMMUNOGLOBULINS PHAN Collected: 08/21/2017 Status: F Source: [place] 2:55 PM [facility] REPOSITORY TYPE CODE TESTS RESULT OUT OF RANGE REFERENCE UNITS LAB IGG 717-1411 mg/dL Low IgG 559 LAB IGA 78-391 mg/dL IgA 128 LAB IGM 53-334 mg/dL Low IgM 33 Performed By: #### RETIC, CMP, SERIMM #### [facility] [employer] [address] [place] [id number] CD4 ABSOLUTE COUNT Collected: 08/21/2017 Status: F Source: [place] 2:55 PM [facility] REPOSITORY TYPE CODE TESTS RESULT OUT OF REFERENCE UNITS RANGE LAB XCD3P 60-89 % 70 CD3+ T Cell % LAB XCD3N 958-2388 Cells/uL 515 Low CD3+ T Cell No. LAB XCD4P 34-61 % 51 CD4+CD3+ T Cell % LAB XCD4N 533-1674 Cells/uL 379 Low CD4+CD3+ T Cell No. LAB XCOMNT Clinical CD4 interpretation of Comment lymphocyte subsets must be made with caution. Relative and absolute values may be profoundly affected by immunosuppressive or cytotoxic therapy, and be abnormal in a wide variety of infectious, inflammatory, autoimmune and neoplastic disorders. Result Comment: The following number of cluster designated antibodies were used for the definition of the above reported populations: CD3 and CD4. (CD45 used for gating.) This test was developed and its performance characteristics determined by [facility]'s [facility] [place] ([facility]). It has not been cleared or approved by the FDA. [facility] is regulated under CLIA as qualified to perform high-complexity testing. This test is used for clinical purposes. It should not be regarded as investigational or for research. Performed By: #### CD4ABS #### [facility] [address] [place], [place] [address] LIVER PROFILE Collected: 08/18/2017 Status: F Source: [place] 10:40 AM [facility] REPOSITORY Order Comment: Order Date: 02/20/17 Order Info: [id number] - *Hepatic Function Panel Order Info: [id number] - *Lipid Profile CC PCP Comments: 12 hours fasting, may have water. TYPE CODE TESTS RESULT OUT OF RANGE REFERENCE UNITS LAB L501.1500 6.4-8.2 g/dL Normal T PROT 6.8 LAB L501.1800 3.2-5.0 g/dL Normal ALB 3.6 LAB L501.1950 2.2-4.2 g/dL Normal GLOB 3.2 LAB L501.4100 15-37 U/L Normal AST 16 LAB L501.4305 45-117 U/L Normal ALK P 90 LAB L501.4405 16-61 U/L Normal ALT 18 Result Comment: Please note revised ALT reference range effective 2017. LAB L501.4600 0.20-1.00 mg/dL Normal T BILI 0.60 LAB L501.4700 0.00-0.30 mg/dL Normal D BILI 0.18 Performed By: #### L500.3400 #### Laboratory [address] [place], [address] LIPID PROFILE Collected: 08/18/2017 Status: F Source: [place] 10:40 AM [facility] REPOSITORY Order Comment: Order Date: 02/20/17 Order Info: [id number] - *Hepatic Function Panel Order Info: [id number] - *Lipid Profile CC PCP Comments: 12 hours fasting, may have water. TYPE CODE TESTS RESULT OUT OF RANGE REFERENCE UNITS LAB L501.4900 200 mg/dL High CHOL 248 Result Comment: <200 mg/dL Desirable 200-240 mg/dL Borderline >240 mg/dL High Risk LAB L501.5000 mg/dL Normal TRIG 72 Result Comment: The drugs N-Acetylcysteine and Metamizole may falsely depress this assay. Serum Triglycerides Reference Interval Normal <150 mg/dL Borderline high 150 - 199 mg/dL High 200 - 499 mg/dL Very High > or = 500 mg/dL LAB L501.6400 mg/dL Normal HDL 99 Result Comment: The drugs N-Acetylcysteine and Metamizole may falsely depress this assay. Reference Range HDL <40 mg/dL Low HDL Cholesterol HDL >or= 60 mg/dL High HDL Cholesterol LAB L501.6500 0-130 mg/dL High LDL 135 LAB L501.6600 5-40 mg/dL Normal VLDL 14 Performed By: #### L500.4100 #### Laboratory [address] [place], [address] [place] ABS GR + CBC Collected: 07/31/2017 Status: F Source: [place] 1:37 PM [facility] REPOSITORY TYPE CODE TESTS RESULT OUT OF REFERENCE UNITS RANGE LAB WWBC 3.70-11.00 k/uL [place] WBC 6.91 LAB WRBC 4.20-6.00 m/uL Low [place] RBC 3.63 LAB WHGB 13.0-17.0 g/dL Low [place] Hemoglobin 11.9 LAB WHCT 39.0-51.0 % Low [place] Hematocrit 36.6 LAB WMCV 80.0-100.0 fL [place] High MCV 100.8 LAB WMCH 26.0-34.0 pg [place] MCH 32.8 LAB WMCHC 30.5-36.0 g/dL [place] MCHC 32.5 LAB WRDW 11.5-15.0 % [place] High RDW 15.1 LAB WPLT 150-400 k/uL [place] Platelet Cnt 310 LAB WMPV 9.0-12.7 fL [place] MPV 9.9 Result Comment: Test performed at: [facility] [place], [address] [place] [address]. LAB ABGRAN 1.45-7.50 k/uL Absol Gran 5.13 Count COMP METABOLIC PANEL Collected: 07/31/2017 Status: F Source: [place] 1:37 PM [facility] REPOSITORY TYPE CODE TESTS RESULT OUT OF REFERENCE UNITS RANGE LAB TP 6.3-8.0 g/dL Protein, Total 6.5 LAB ALB 3.9-4.9 g/dL Low Albumin 3.8 LAB CA 8.5-10.2 mg/dL Calcium, Total 9.0 LAB TBIL 0.2-1.3 mg/dL Bilirubin, Total 0.3 LAB ALKP 36-108 U/L Alkaline Phosphatase 88 LAB AST 14-40 U/L Low AST 12 LAB GLU 74-99 mg/dL Glucose 97 Result Comment: The [place] Diabetes Association (ADA) provides guidance for cutoff values for fasting glucose and random glucose. The ADA defines fasting as no caloric intake for at least 8 hours. Fas ting plasma glucose results between 100 to 125 mg/dL indicate increased risk for diabetes (prediabetes). Fasting plasma glucose results greater than or equal to 126 mg/dL meet the criteria for diagnosis of diabetes. In the absence of unequivocal hyperglycemia, results should be confirmed by repeat testing. In a patient with classic symptoms of hyperglycemia or hyperglycemic crisis, random plasma glucose results greater than or equal to 200 mg/dL meet the criteria for diagnosis of diabetes. Reference: Standards of Medical Care in Diabetes 2016, [place] Diabetes Association. Diabetes Care. 2016.39(Suppl 1). LAB BUN 9-24 mg/dL BUN 19 LAB CRET 0.73-1.22 mg/dL Creatinine High 1.51 LAB NA 136-144 mmol/L Sodium 141 LAB K 3.7-5.1 mmol/L Potassium 4.4 LAB CL 97-105 mmol/L Chloride High 106 LAB CO2 22-30 mmol/L Low CO2 21 LAB AGAP 9-18 mmol/L Anion Gap 14 LAB ALT 10-54 U/L ALT 10 LAB GFRAA eGFR- Amer. 54 LAB GFRNAA . eGFR-All Other Races 45 Result Comment: eGFR (Estimated GFR) Units of measure: mL/min/1.73 meters squared eGFR is derived from the reexpressed MDRD Study equation using the following parameters: serum creatinine, age, gender and race. The creatinine assay has been calibrated to be traceable to IDMS. An eGFR <60 mL/min/1.73m2 for >3 months is consistent with chronic kidney disease. Refer to KDOQI guidelines for clinical interpretation. In patients with unstable renal function, e.g. those with acute kidney injury, the eGFR may not accurately reflect actual GFR. Performed By: #### CMP #### [facility] [employer] [address] [place], [place] [id number] CD4 ABSOLUTE COUNT Collected: 07/31/2017 Status: F Source: [place] 1:37 PM [facility] REPOSITORY TYPE CODE TESTS RESULT OUT OF REFERENCE UNITS RANGE LAB XCD3P 60-89 % 72 CD3+ T Cell % LAB XCD3N 958-2388 Cells/uL 430 Low CD3+ T Cell No. LAB XCD4P 34-61 % 51 CD4+CD3+ T Cell % LAB XCD4N 533-1674 Cells/uL 305 Low CD4+CD3+ T Cell No. LAB XCOMNT Clinical CD4 interpretation of Comment lymphocyte subsets must be made with caution. Relative and absolute values may be profoundly affected by immunosuppressive or cytotoxic therapy, and be abnormal in a wide variety of infectious, inflammatory, autoimmune and neoplastic disorders. Result Comment: The following number of cluster designated antibodies were used for the definition of the above reported populations: CD3 and CD4. (CD45 used for gating.) This test was developed and its performance characteristics determined by [facility]'s [facility] [place] ([facility]). It has not been cleared or approved by the FDA. [facility] is regulated under CLIA as qualified to perform high-complexity testing. This test is used for clinical purposes. It should not be regarded as investigational or for research. Performed By: #### CD4ABS #### [facility] [employer] [address] [place], [place] [address] PROGRESS Observed: 07/03/2017 Status: COMPLETED Source: [place] 1:38 PM [facility] REPOSITORY [facility] ID: [id number] Author: Gilberto Puga Service: (none) Author Type: Physician Type: Progress Notes Filed: 07/06/2017 7:44 AM Note Text: PATIENT NAME: [place]itin [place]. [facility] NO: [id number]. ATTENDING PHYSICIAN: Gilberto Puga MD. DATE OF SERVICE: 07/03/2017 ?? 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 HPI: Mr. 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 He had induction chemtherapy with 2CDA initially in November of 1997. He was in complete remission and he had a splenic recurrence in 2000. The patient subsequently had splenectomy, and second course of 2 CDA and went into complete remission again in February of 2004. The patient had his third recurrence with progressive anemia and pancytopenia in 2008. He received Rituxan and 2 CDA and was again in complete remission since 2008. ?? Since nursing home, he has increased fatigue and decreased stamina. Patient has no cough, shortness of breath. He has no fever, chills or night sweats. Weight and appetite remain stable. Patient also has a rising PSA level in history of prostate cancer. ?? He was diagnosed with prostate cancer and had Lupron injection and completed external beam radiation therapy for his prostate cancer last fall. Since that time, patient has increased fatigue. He had a GI evaluation for anemia recently?and it was negative. ?? Current treatment: Rituximab weekly x 4 ( 03/24/17 - 04/21/17 ) Vermurafenib 250mg once daily ( 05/28/17 - ) ?? Interim history:?Patient completed his induction rituximab last year. Started Vermurafenib 250mg once daily in May 28 because persistent anemia and leukopenia. He has no fever, chills or night sweats. despite his anemia and leukopenia have improved. He has no mouth sore, stomatitis or diarrhea. Patient has no fever, chills or sweating. No sign of infection. his only complaint is muscle aches since starting Vermurafenib. His symptom is controlled with ibuprofen once a day. All medications AND?allergies updated and?reviewed by me. ?? REVIEW OF SYSTEMS: ?? CONSTITUTIONAL: No fevers, chills, nightsweats,?fatigue. HEENT: Denies frequent or severe heaches, nasal congestion/sinus symptoms, problematic allergy problems. EYES: No diplopia or blurry vision. CARDIOVASCULAR: No chest pain, dyspnea, palpitations, orthopnea, PND, ankle edema. PULM: No dyspnea, unexplained cough. GI: No dysphagia/odynophagia, problematic reflux, constipation, diarrhea, changes in stool habits, hematochezia, melena. : No new urinary complaints, including dysuria, gross hematuria or pyuria. NEURO: No new balance problems, peripheral weakness/paresthesias or numbness of concern. MUSC-SKEL: No new joint pain, swelling, or erythema. PSY: No concerns regarding depression, anxiety or panic. INTEGUMENTARY: No new skin changes (rash, new or changing mole, new growth) ?? PHYSICAL EXAMINATION: ?81-year-old well-nourished, well-developed gentleman in no distress Performance status 90% BP 149/67 Pulse 71 Temp (Src) 97.7 (Temporal Artery) Wt 159 lb 8 oz (72.3kg) HEENT: Head is normocephalic, atraumatic. Sclerae white, conjunctivae pink. PEERL. EOMs are intact. Oropharynx is benign. No thrush LYMPHATICS: There is no palpable adenopathy in the neck, supraclavicular region, axillae, or groin. LUNGS: Lungs are clear to percussion and auscultation. HEART: Heart is normal without murmurs, gallops, or rubs. ABDOMEN: Soft and nontender without organomegaly. No masses can be palpated. EXTREMITIES: Are without edema. NEUROLOGIC: Exam is physiologic ?? LABORATORY DATA: Component Latest Ref Rng AND Units 06/26/2017 WBC, [place] 3.70 - 11.00 k/uL 5.70 RBC, [place] 4.20 - 6.00 m/uL 3.46 (L) Hemoglobin, [place] 13.0 - 17.0 g/dL 11.7 (L) Hematocrit, [place] 39.0 - 51.0 % 36.2 (L) MCV, [place] 80.0 - 100.0 fL 104.6 (H) MCH, [place] 26.0 - 34.0 pg 33.8 MCHC, [place] 30.5 - 36.0 g/dL 32.3 RDW, [place] 11.5 - 15.0 % 16.7 (H) Platelet Cnt, [place] 150 - 400 k/uL 303 MPV, [place] 9.0 - 12.7 fL 9.2 Absol Gran Count 1.45 - 7.50 k/uL 4.24 Component Latest Ref Rng AND Units 06/26/2017 Protein, Total 6.3 - 8.0 g/dL 6.6 Albumin 3.9 - 4.9 g/dL 4.0 Calcium 8.5 - 10.2 mg/dL 9.0 Bilirubin, Total 0.2 - 1.3 mg/dL 0.3 Alkaline Phosphatase 36 - 108 U/L 89 AST 14 - 40 U/L 17 Glucose 74 - 99 mg/dL 94 BUN 9 - 24 mg/dL 19 Creatinine 0.73 - 1.22 mg/dL 1.36 (H) Sodium 136 - 144 mmol/L 142 Potassium 3.7 - 5.1 mmol/L 4.2 Chloride 97 - 105 mmol/L 106 (H) CO2 22 - 30 mmol/L 21 (L) Anion Gap 9 - 18 mmol/L 15 ALT 10 - 54 U/L 7 (L) eGFR- >60 eGFR-All Other Races . 51 Retic % 0.4 - 2.0 % 2.2 (H) Abs Retic 0.0180 - 0.1000 M/uL 0.079 LD 135 - 225 U/L 165 EKG: Diagnosis:NORMAL SINUS RHYTHM NORMAL ECG -No QT prolongation. ?? 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 His?leukopenia and?anemia have improved. He is tolerating treatment except for myalgia, elevation in creatinine because of dehydration.. ? No sign of infection, cough or shortness of breath. ?? PLAN: - Continue?antiviral and PCP prophylaxis with acyclovir 400mg twice daily and pentamidine 300mg monthly - continue Vermurafenib 250mg once daily - Continue vitamin B6 100mg once daily - CBC monthly x 2 - Repeat CBC, CMP, LDH, reticulocyte count AND repeat CD4 counts OV in 8 weeks Gilberto Puga MD Cc: Dr. Faiza Mercado CNOVSP Observed: 07/03/2017 Status: COMPLETED Source: [place] 1:30 PM [facility] REPOSITORY Visit (SP) Office (NATI) NITIN KINGSLEY ([id number]) 1935 M Date Time Provider Department 07/03/17 1:30 PM GILBERTO PUGA During your visit today, we recorded the following information about you: Temperature Pulse Blood pressure Weight 97.7 degrees 71/minute 149/67 72.3 kg Gilberto Puga MD 07/06/2017 7:44 AM Signed PATIENT NAME: Nitin Kingsley. CLINIC NO: [id number]. ATTENDING PHYSICIAN: Gilberto Puga MD. DATE OF SERVICE: 07/03/2017 ?? 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 HPI: Mr. 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 He had induction chemtherapy with 2CDA initially in November of 1997. He was in complete remission and he had a splenic recurrence in 2000. The patient subsequently had splenectomy, and second course of 2 CDA and went into complete remission again in February of 2004. The patient had his third recurrence with progressive anemia and pancytopenia in 2008. He received Rituxan and 2 CDA and was again in complete remission since 2008. ?? Since nursing home, he has increased fatigue and decreased stamina. Patient has no cough, shortness of breath. He has no fever, chills or night sweats. Weight and appetite remain stable. Patient also has a rising PSA level in history of prostate cancer. ?? He was diagnosed with prostate cancer and had Lupron injection and completed external beam radiation therapy for his prostate cancer last fall. Since that time, patient has increased fatigue. He had a GI evaluation for anemia recently?and it was negative. ?? Current treatment: Rituximab weekly x 4 ( 03/24/17 - 04/21/17 ) Vermurafenib 250mg once daily ( 05/28/17 - ) ?? Interim history:?Patient completed his induction rituximab last year. Started Vermurafenib 250mg once daily in May 28 because persistent anemia and leukopenia. He has no fever, chills or night sweats. despite his anemia and leukopenia have improved. He has no mouth sore, stomatitis or diarrhea. Patient has no fever, chills or sweating. No sign of infection. his only complaint is muscle aches since starting Vermurafenib. His symptom is controlled with ibuprofen once a day. All medications ANDamp;?allergies updated and?reviewed by me. ?? REVIEW OF SYSTEMS: ?? CONSTITUTIONAL: No fevers, chills, nightsweats,?fatigue. HEENT: Denies frequent or severe heaches, nasal congestion/sinus symptoms, problematic allergy problems. EYES: No diplopia or blurry vision. CARDIOVASCULAR: No chest pain, dyspnea, palpitations, orthopnea, PND, ankle edema. PULM: No dyspnea, unexplained cough. GI: No dysphagia/odynophagia, problematic reflux, constipation, diarrhea, changes in stool habits, hematochezia, melena. : No new urinary complaints, including dysuria, gross hematuria or pyuria. NEURO: No new balance problems, peripheral weakness/paresthesias or numbness of concern. MUSC-SKEL: No new joint pain, swelling, or erythema. PSY: No concerns regarding depression, anxiety or panic. INTEGUMENTARY: No new skin changes (rash, new or changing mole, new growth) ?? PHYSICAL EXAMINATION: ?81-year-old well-nourished, well-developed gentleman in no distress Performance status 90% BP 149/67 Pulse 71 Temp (Src) 97.7 (Temporal Artery) Wt 159 lb 8 oz (72.3kg) HEENT: Head is normocephalic, atraumatic. Sclerae white, conjunctivae pink. PEERL. EOMs are intact. Oropharynx is benign. No thrush LYMPHATICS: There is no palpable adenopathy in the neck, supraclavicular region, axillae, or groin. LUNGS: Lungs are clear to percussion and auscultation. HEART: Heart is normal without murmurs, gallops, or rubs. ABDOMEN: Soft and nontender without organomegaly. No masses can be palpated. EXTREMITIES: Are without edema. NEUROLOGIC: Exam is physiologic ?? LABORATORY DATA: Component Latest Ref Rng ANDamp; Units 06/26/2017 WBC, [place] 3.70 - 11.00 k/uL 5.70 RBC, [place] 4.20 - 6.00 m/uL 3.46 (L) Hemoglobin, [place] 13.0 - 17.0 g/dL 11.7 (L) Hematocrit, [place] 39.0 - 51.0 % 36.2 (L) MCV, [place] 80.0 - 100.0 fL 104.6 (H) MCH, [place] 26.0 - 34.0 pg 33.8 MCHC, [place] 30.5 - 36.0 g/dL 32.3 RDW, [place] 11.5 - 15.0 % 16.7 (H) Platelet Cnt, [place] 150 - 400 k/uL 303 MPV, [place] 9.0 - 12.7 fL 9.2 Absol Gran Count 1.45 - 7.50 k/uL 4.24 Component Latest Ref Rng ANDamp; Units 06/26/2017 Protein, Total 6.3 - 8.0 g/dL 6.6 Albumin 3.9 - 4.9 g/dL 4.0 Calcium 8.5 - 10.2 mg/dL 9.0 Bilirubin, Total 0.2 - 1.3 mg/dL 0.3 Alkaline Phosphatase 36 - 108 U/L 89 AST 14 - 40 U/L 17 Glucose 74 - 99 mg/dL 94 BUN 9 - 24 mg/dL 19 Creatinine 0.73 - 1.22 mg/dL 1.36 (H) Sodium 136 - 144 mmol/L 142 Potassium 3.7 - 5.1 mmol/L 4.2 Chloride 97 - 105 mmol/L 106 (H) CO2 22 - 30 mmol/L 21 (L) Anion Gap 9 - 18 mmol/L 15 ALT 10 - 54 U/L 7 (L) eGFR- ANDgt;60 eGFR-All Other Races . 51 Retic % 0.4 - 2.0 % 2.2 (H) Abs Retic 0.0180 - 0.1000 M/uL 0.079 LD 135 - 225 U/L 165 EKG: Diagnosis:NORMAL SINUS RHYTHM NORMAL ECG -No QT prolongation. ?? 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 His?leukopenia and?anemia have improved. He is tolerating treatment except for myalgia, elevation in creatinine because of dehydration.. ? No sign of infection, cough or shortness of breath. ?? PLAN: - Continue?antiviral and PCP prophylaxis with acyclovir 400mg twice daily and pentamidine 300mg monthly - continue Vermurafenib 250mg once daily - Continue vitamin B6 100mg once daily - CBC monthly x 2 - Repeat CBC, CMP, LDH, reticulocyte count ANDamp; repeat CD4 counts OV in 8 weeks Gilberto Puga MD Cc: Dr. Faiza Mercado Referring Provider: GILBERTO PUGA [[id number]] Allergies As of Date: 07/03/2017 Noted Allergy Reaction CIPRO (CIPROFLOXACIN) 09/26/2005 7 - Swelling 10 - Anaphylaxis ALLOPURINOL SODIUM 09/26/2005 2 - Rash BACTRIM (SULFAMETHOXAZOLE-TRIMETH*09/26/2005 2 - Rash IODINE (CONTRAST DYE) 09/26/2005 2 - Rash Comments: not a problem topically RITUXAN (RITUXIMAB) 03/24/2017 14 - Other: See Comments Comments: See nursing notes 03/24/18. 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 Follow-up and Disposition History Recorded Prescriptions as of 07/03/2017 Sig: VEMURAFENIB 240 MG TABLET Take 1 tablet by mouth twice * PYRIDOXINE (VITAMIN B6) 100 M* Take 1 tablet by mouth once d* AMIODARONE 100 MG TABLET Take 100 mg by mouth once valerie* OMEPRAZOLE 40 MG CAPSULE,JESSICA* Take 1 capsule by mouth once * ATORVASTATIN 10 MG TABLET Take 10 mg by mouth once nelsy* FERROUS GLUCONATE 324 MG (36 * Take 1 tablet by mouth once d* * CARVEDILOL 6.25 MG TABLET Take 6.25 mg by mouth twice d* * FLOMAX 0.4 MG CAPSULE Take one(1) tablet daily. 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] INVALID FOR* H/O splenectomy [Z98.890, Z90.81] INVALID FOR* Prostate cancer (HCC) [C61] INVALID FOR* 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] INVALID FOR* Anemia [D64.9] INVALID FOR* Chemotherapy-induced neutropenia (HCC) [D70.1, *INVALID FOR* Encounter Status:Closed by GILBERTO PUGA MD on 07/06/17 S[place] ABS GR + CBC Collected: 06/26/2017 Status: F Source: [place] 11:03 AM [facility] REPOSITORY TYPE CODE TESTS RESULT OUT OF REFERENCE UNITS RANGE LAB WWBC 3.70-11.00 k/uL [place] WBC 5.70 LAB WRBC 4.20-6.00 m/uL Low [place] RBC 3.46 LAB WHGB 13.0-17.0 g/dL Low [place] Hemoglobin 11.7 LAB WHCT 39.0-51.0 % Low [place] Hematocrit 36.2 LAB WMCV 80.0-100.0 fL [place] High MCV 104.6 LAB WMCH 26.0-34.0 pg [place] MCH 33.8 LAB WMCHC 30.5-36.0 g/dL [place] MCHC 32.3 LAB WRDW 11.5-15.0 % [place] High RDW 16.7 LAB WPLT 150-400 k/uL [place] Platelet Cnt 303 LAB WMPV 9.0-12.7 fL [place] MPV 9.2 Result Comment: Test performed at: [facility] [place], [address] [place] [address]. LAB ABGRAN 1.45-7.50 k/uL Absol Gran 4.24 Count RETICULOCYTE Collected: 06/26/2017 Status: F Source: [place] 11:03 AM [facility] REPOSITORY TYPE CODE TESTS RESULT OUT OF REFERENCE UNITS RANGE LAB RETC 0.4-2.0 % High Retic% 2.2 LAB ABRET 0.0180-0.1000 M/uL Abs Retic 0.079 Performed By: #### RETIC, CMP, LD6 #### [facility] [address] [place] [id number] COMP METABOLIC PANEL Collected: 06/26/2017 Status: F Source: [place] 11:03 [facility] REPOSITORY TYPE CODE TESTS RESULT OUT OF REFERENCE UNITS RANGE LAB TP 6.3-8.0 g/dL Protein, Total 6.6 LAB ALB 3.9-4.9 g/dL Albumin 4.0 LAB CA 8.5-10.2 mg/dL Calcium, Total 9.0 LAB TBIL 0.2-1.3 mg/dL Bilirubin, Total 0.3 LAB ALKP 36-108 U/L Alkaline Phosphatase 89 LAB AST 14-40 U/L AST 17 LAB GLU 74-99 mg/dL Glucose 94 Result Comment: The [place] [employer] (ADA) provides guidance for cutoff values for fasting glucose and random glucose. The ADA defines fasting as no caloric intake for at least 8 hours. Fas ting plasma glucose results between 100 to 125 mg/dL indicate increased risk for diabetes (prediabetes). Fasting plasma glucose results greater than or equal to 126 mg/dL meet the criteria for diagnosis of diabetes. In the absence of unequivocal hyperglycemia, results should be confirmed by repeat testing. In a patient with classic symptoms of hyperglycemia or hyperglycemic crisis, random plasma glucose results greater than or equal to 200 mg/dL meet the criteria for diagnosis of diabetes. Reference: Standards of Medical Care in Diabetes 2016, [place] [employer]. Diabetes Care. 2016.39(Suppl 1). LAB BUN 9-24 mg/dL BUN 19 LAB CRET 0.73-1.22 mg/dL Creatinine High 1.36 LAB NA 136-144 mmol/L Sodium 142 LAB K 3.7-5.1 mmol/L Potassium 4.2 LAB CL 97-105 mmol/L Chloride High 106 LAB CO2 22-30 mmol/L Low CO2 21 LAB AGAP 9-18 mmol/L Anion Gap 15 LAB ALT 10-54 U/L Low ALT 7 LAB GFRAA eGFR- Amer. >60 LAB GFRNAA . eGFR-All Other Races 51 Result Comment: eGFR (Estimated GFR) Units of measure: mL/min/1.73 meters squared eGFR is derived from the reexpressed MDRD Study equation using the following parameters: serum creatinine, age, gender and race. The creatinine assay has been calibrated to be traceable to IDMS. An eGFR <60 mL/min/1.73m2 for >3 months is consistent with chronic kidney disease. Refer to KDOQI guidelines for clinical interpretation. In patients with unstable renal function, e.g. those with acute kidney injury, the eGFR may not accurately reflect actual GFR. Performed By: #### RETIC, CMP, LD6 #### [facility] [address] [place], [place] [address] LD Collected: 06/26/2017 Status: F Source: [facility] 11:03 AM [facility] REPOSITORY TYPE CODE TESTS RESULT OUT OF RANGE REFERENCE UNITS LAB LD 135-225 U/L LD 165 Performed By: #### RETIC, CMP, LD6 #### [facility] [address] [place], [place] [address] PROGRESS Observed: 06/05/2017 Status: COMPLETED Source: [place] 2:34 PM [facility] REPOSITORY HNO ID: [id number] Author: Gilberto Puga Service: (none) Author Type: Physician Type: Progress Notes Filed: 06/06/2017 3:40 PM Note Text: PATIENT NAME: Nitin Kingsley. CLINIC NO: [id number]. ATTENDING PHYSICIAN: Gilberto Puga MD. DATE OF SERVICE: 06/05/2017. ?? 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 HPI: Mr. 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 He had induction chemtherapy with 2CDA initially in November of 1997. He was in complete remission and he had a splenic recurrence in 2000. The patient subsequently had splenectomy, and second course of 2 CDA and went into complete remission again in February of 2004. The patient had his third recurrence with progressive anemia and pancytopenia in 2008. He received Rituxan and 2 CDA and was again in complete remission since 2008. ?? Since nursing home, he has increased fatigue and decreased stamina. Patient has no cough, shortness of breath. He has no fever, chills or night sweats. Weight and appetite remain stable. Patient also has a rising PSA level in history of prostate cancer. ?? He was diagnosed with prostate cancer and had Lupron injection and completed external beam radiation therapy for his prostate cancer last fall. Since that time, patient has increased fatigue. He had a GI evaluation for anemia recently?and it was negative. ?? Current treatment: Rituximab weekly x 4 ( 03/24/17 - 04/21/17 ) ?? Vermurafenib 240mg twice daily Interim history:?Patient developed moderately severe neutropenia after rituximab last month. He has no mouth sore, stomatitis or diarrhea. Patient has no fever, chills or sweating. No sign of infection. He was started on Neupogen 3x weekly since May 18, 2017, and he started Vermurafenib 240mg twice daily since 05/23/2017. patient has no rash, myalgia arthralgia. No jaundice itching or hepatitis. He also denied diarrhea. He has no cough or shortness of breath All medications AND?allergies updated and?reviewed by me. ?? REVIEW OF SYSTEMS: ?? CONSTITUTIONAL: No fevers, chills, nightsweats,?fatigue. HEENT: Denies frequent or severe heaches, nasal congestion/sinus symptoms, problematic allergy problems. EYES: No diplopia or blurry vision. CARDIOVASCULAR: No chest pain, dyspnea, palpitations, orthopnea, PND, ankle edema. PULM: No dyspnea, unexplained cough. GI: No dysphagia/odynophagia, problematic reflux, constipation, diarrhea, changes in stool habits, hematochezia, melena. : No new urinary complaints, including dysuria, gross hematuria or pyuria. NEURO: No new balance problems, peripheral weakness/paresthesias or numbness of concern. MUSC-SKEL: No new joint pain, swelling, or erythema. PSY: No concerns regarding depression, anxiety or panic. INTEGUMENTARY: No new skin changes (rash, new or changing mole, new growth) ?? PHYSICAL EXAMINATION: ?80-year-old well-nourished, well-developed gentleman in no distress Performance status 90% BP 147/65 Pulse 73 Temp (Src) 98.1 (Oral) Wt 161 lb (73.0kg) HEENT: Head is normocephalic, atraumatic. Sclerae white, conjunctivae pink. PEERL. EOMs are intact. Oropharynx is benign. No thrush LYMPHATICS: There is no palpable adenopathy in the neck, supraclavicular region, axillae, or groin. LUNGS: Lungs are clear to percussion and auscultation. HEART: Heart is normal without murmurs, gallops, or rubs. ABDOMEN: Soft and nontender without organomegaly. No masses can be palpated. EXTREMITIES: Are without edema. NEUROLOGIC: Exam is physiologic ?? LABORATORY DATA: ? Component Latest Ref Rng AND Units 06/05/2017 WBC, [place] 3.70 - 11.00 k/uL 10.16 RBC, [place] 4.20 - 6.00 m/uL 3.05 (L) Hemoglobin, [place] 13.0 - 17.0 g/dL 10.3 (L) Hematocrit, [place] 39.0 - 51.0 % 31.7 (L) MCV, [place] 80.0 - 100.0 fL 103.9 (H) MCH, [place] 26.0 - 34.0 pg 33.8 MCHC, [place] 30.5 - 36.0 g/dL 32.5 RDW, [place] 11.5 - 15.0 % 17.7 (H) Platelet Cnt, [place] 150 - 400 k/uL 357 MPV, [place] 9.0 - 12.7 fL 9.4 Absol Gran Count 1.45 - 7.50 k/uL 9.60 (H) Component Latest Ref Rng AND Units 06/03/2017 Protein, Total 6.3 - 8.0 g/dL 6.4 Albumin 3.9 - 4.9 g/dL 3.5 (L) Calcium 8.5 - 10.2 mg/dL 8.6 Bilirubin, Total 0.2 - 1.3 mg/dL 0.3 Alkaline Phosphatase 36 - 108 U/L 116 (H) AST 14 - 40 U/L 9 (L) Glucose 74 - 99 mg/dL 138 (H) BUN 9 - 24 mg/dL 17 Creatinine 0.73 - 1.22 mg/dL 1.40 (H) Sodium 136 - 144 mmol/L 139 Potassium 3.7 - 5.1 mmol/L 4.4 Chloride 97 - 105 mmol/L 104 CO2 22 - 30 mmol/L 23 Anion Gap 9 - 18 mmol/L 12 ALT 10 - 54 U/L 8 (L) eGFR- 59 eGFR-All Other Races . 49 LD 135 - 225 U/L 150 ? Component Latest Ref Rng AND Units 06/05/2017 CD3+ T Cell % 60 - 89 % 89 CD3+ T Cell # [phone] - 2388 Cells/uL 381 (L) CD4+CD3+ T Cell % 34 - 61 % 67 (H) CD4+CD3+ T Cell # 533 - 1674 Cells/uL 290 (L) CD4 Comment Clinical interpretation of lymphocyte subsets must be made with caution. Relative . . . 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 He has?leukopenia and?anemia with increased fatigue secondary to Anemia. ? Although his anemia has not changed, his leukopenia has resolved. ?? PLAN: +?BRAF?V600E mutation for recurrent hairy cell leukemia, on low dose Vermurafenib 240mg twice daily for refractory hairy cell leukemia. - Continue?antiviral and PCP prophylaxis with acyclovir 400mg twice daily and pentamidine 300mg monthly - Stop Neupogen - Check EKG for QT prolongation today on Vermurafenib - Continue vitamin B6 100mg once daily - Increase fluid for elevated Cr. - Repeat CBC, CMP, LDH, reticulocyte count AND OV in 4 weeks.? ? Gilberto Puga MD ?? Cc: Dr. Faiza DAVIS ABS GR + CBC Collected: 06/05/2017 Status: F Source: [place] 2:30 PM [facility] REPOSITORY TYPE CODE TESTS RESULT OUT OF REFERENCE UNITS RANGE LAB WWBC 3.70-11.00 k/uL [place] WBC 10.16 LAB WRBC 4.20-6.00 m/uL Low [place] RBC 3.05 LAB WHGB 13.0-17.0 g/dL Low [place] Hemoglobin 10.3 LAB WHCT 39.0-51.0 % Low [place] Hematocrit 31.7 LAB WMCV 80.0-100.0 fL [place] High MCV 103.9 LAB WMCH 26.0-34.0 pg [place] MCH 33.8 LAB WMCHC 30.5-36.0 g/dL [place] MCHC 32.5 LAB WRDW 11.5-15.0 % [place] High RDW 17.7 LAB WPLT 150-400 k/uL [place] Platelet Cnt 357 LAB WMPV 9.0-12.7 fL [place] MPV 9.4 Result Comment: Test performed at: [facility] [place], [address] [place] [address]. LAB ABGRAN 1.45-7.50 k/uL High Absol 9.60 Gran Count SUSAN ISTAT BMP Collected: 06/05/2017 Status: F Source: [place] 2:30 PM [facility] REPOSITORY TYPE CODE TESTS RESULT OUT OF REFERENCE UNITS RANGE LAB NAWB 135-146 mmol/L Sodium, Whole 139 Bld LAB K1WB 3.5-5.0 mmol/L Potassium,Who 4.0 le Bld LAB CLWB 98-110 mmol/L Chloride, 107 Whole Bld LAB ICAWB 1.08-1.30 mmol/L Ionized 1.19 Calcium, WB Result Comment: Please note: This value represents ionized calcium not total calcium. LAB CO2WB 23-32 mmol/L Low TCO2, Whole 22 Blood LAB GLUWB 65-100 mg/dL High Glucose, 109 Whole Bld LAB BUNWB 10-25 mg/dL BUN, Whole 16 Blood LAB BCRET 0.70-1.40 mg/dL High Creatinine,Wh 1.50 ole Bld LAB AGAPWB 0-15 mmol/L Anion Gap, 10 Whole Bld LAB GFRAA eGFR- 55 Amer. LAB GFRNAA . eGFR-All 45 Other Races Result Comment: eGFR (Estimated GFR) Units of measure: mL/min/1.73 meters squared eGFR is derived from the reexpressed MDRD Study equation using the following parameters: serum creatinine, age, gender and race. The creatinine assay has been calibrated to be traceable to IDMS. An eGFR <60 mL/min/1.73m2 for >3 months is consistent with chronic kidney disease. Refer to KDOQI guidelines for clinical interpretation. In patients with unstable renal function, e.g. those with acute kidney injury, the eGFR may not accurately reflect actual GFR. CD4 ABSOLUTE COUNT Collected: 06/05/2017 Status: F Source: [place] 2:30 PM [facility] REPOSITORY TYPE CODE TESTS RESULT OUT OF REFERENCE UNITS RANGE LAB XCD3P 60-89 % 89 CD3+ T Cell % LAB XCD3N [id number] Cells/uL 381 Low CD3+ T Cell No. LAB XCD4P 34-61 % 67 High CD4+CD3+ T Cell % LAB XCD4N [id number] Cells/uL 290 Low CD4+CD3+ T Cell No. LAB XCOMNT Clinical CD4 interpretation of Comment lymphocyte subsets must be made with caution. Relative and absolute values may be profoundly affected by immunosuppressive or cytotoxic therapy, and be abnormal in a wide variety of infectious, inflammatory, autoimmune and neoplastic disorders. Result Comment: The following number of cluster designated antibodies were used for the definition of the above reported populations: CD3 and CD4. (CD45 used for gating.) This test was developed and its performance characteristics determined by [facility] [place] ([facility]). It has not been cleared or approved by the FDA. [facility] is regulated under CLIA as qualified to perform high-complexity testing. This test is used for clinical purposes. It should not be regarded as investigational or for research. Performed By: #### CD4ABS #### [facility] [address] [place], [place] [address] CNOVSP Observed: 06/05/2017 Status: COMPLETED Source: [place] 2:10 PM [facility] REPOSITORY Visit (SP) Office (NATI) NITIN KINGSLEY ([id number]) 1935 M Date Time Provider Department 06/05/17 2:10 PM GILBERTO PUGA During your visit today, we recorded the following information about you: Temperature Pulse Blood pressure Weight 98.1 degrees 73/minute 147/65 73 kg Gilberto Puga MD 06/06/2017 3:40 PM Signed PATIENT NAME: Nitin Kingsley. CLINIC NO: [id number]. ATTENDING PHYSICIAN: Gilberto Puga MD. DATE OF SERVICE: 06/05/2017. ?? 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 HPI: Mr. 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 He had induction chemtherapy with 2CDA initially in November of 1997. He was in complete remission and he had a splenic recurrence in 2000. The patient subsequently had splenectomy, and second course of 2 CDA and went into complete remission again in February of 2004. The patient had his third recurrence with progressive anemia and pancytopenia in 2008. He received Rituxan and 2 CDA and was again in complete remission since 2008. ?? Since nursing home, he has increased fatigue and decreased stamina. Patient has no cough, shortness of breath. He has no fever, chills or night sweats. Weight and appetite remain stable. Patient also has a rising PSA level in history of prostate cancer. ?? He was diagnosed with prostate cancer and had Lupron injection and completed external beam radiation therapy for his prostate cancer last fall. Since that time, patient has increased fatigue. He had a GI evaluation for anemia recently?and it was negative. ?? Current treatment: Rituximab weekly x 4 ( 03/24/17 - 04/21/17 ) ?? Vermurafenib 240mg twice daily Interim history:?Patient developed moderately severe neutropenia after rituximab last month. He has no mouth sore, stomatitis or diarrhea. Patient has no fever, chills or sweating. No sign of infection. He was started on Neupogen 3x weekly since May 18, 2017, and he started Vermurafenib 240mg twice daily since 05/23/2017. patient has no rash, myalgia arthralgia. No jaundice itching or hepatitis. He also denied diarrhea. He has no cough or shortness of breath All medications ANDamp;?allergies updated and?reviewed by me. ?? REVIEW OF SYSTEMS: ?? CONSTITUTIONAL: No fevers, chills, nightsweats,?fatigue. HEENT: Denies frequent or severe heaches, nasal congestion/sinus symptoms, problematic allergy problems. EYES: No diplopia or blurry vision. CARDIOVASCULAR: No chest pain, dyspnea, palpitations, orthopnea, PND, ankle edema. PULM: No dyspnea, unexplained cough. GI: No dysphagia/odynophagia, problematic reflux, constipation, diarrhea, changes in stool habits, hematochezia, melena. : No new urinary complaints, including dysuria, gross hematuria or pyuria. NEURO: No new balance problems, peripheral weakness/paresthesias or numbness of concern. MUSC-SKEL: No new joint pain, swelling, or erythema. PSY: No concerns regarding depression, anxiety or panic. INTEGUMENTARY: No new skin changes (rash, new or changing mole, new growth) ?? PHYSICAL EXAMINATION: ?80-year-old well-nourished, well-developed gentleman in no distress Performance status 90% BP 147/65 Pulse 73 Temp (Src) 98.1 (Oral) Wt 161 lb (73.0kg) HEENT: Head is normocephalic, atraumatic. Sclerae white, conjunctivae pink. PEERL. EOMs are intact. Oropharynx is benign. No thrush LYMPHATICS: There is no palpable adenopathy in the neck, supraclavicular region, axillae, or groin. LUNGS: Lungs are clear to percussion and auscultation. HEART: Heart is normal without murmurs, gallops, or rubs. ABDOMEN: Soft and nontender without organomegaly. No masses can be palpated. EXTREMITIES: Are without edema. NEUROLOGIC: Exam is physiologic ?? LABORATORY DATA: ? Component Latest Ref Rng ANDamp; Units 06/05/2017 WBC, [place] 3.70 - 11.00 k/uL 10.16 RBC, [place] 4.20 - 6.00 m/uL 3.05 (L) Hemoglobin, [place] 13.0 - 17.0 g/dL 10.3 (L) Hematocrit, [place] 39.0 - 51.0 % 31.7 (L) MCV, [place] 80.0 - 100.0 fL 103.9 (H) MCH, [place] 26.0 - 34.0 pg 33.8 MCHC, [place] 30.5 - 36.0 g/dL 32.5 RDW, [place] 11.5 - 15.0 % 17.7 (H) Platelet Cnt, [place] 150 - 400 k/uL 357 MPV, [place] 9.0 - 12.7 fL 9.4 Absol Gran Count 1.45 - 7.50 k/uL 9.60 (H) Component Latest Ref Rng ANDamp; Units 06/03/2017 Protein, Total 6.3 - 8.0 g/dL 6.4 Albumin 3.9 - 4.9 g/dL 3.5 (L) Calcium 8.5 - 10.2 mg/dL 8.6 Bilirubin, Total 0.2 - 1.3 mg/dL 0.3 Alkaline Phosphatase 36 - 108 U/L 116 (H) AST 14 - 40 U/L 9 (L) Glucose 74 - 99 mg/dL 138 (H) BUN 9 - 24 mg/dL 17 Creatinine 0.73 - 1.22 mg/dL 1.40 (H) Sodium 136 - 144 mmol/L 139 Potassium 3.7 - 5.1 mmol/L 4.4 Chloride 97 - 105 mmol/L 104 CO2 22 - 30 mmol/L 23 Anion Gap 9 - 18 mmol/L 12 ALT 10 - 54 U/L 8 (L) eGFR- 59 eGFR-All Other Races . 49 LD 135 - 225 U/L 150 ? Component Latest Ref Rng ANDamp; Units 06/05/2017 CD3+ T Cell % 60 - 89 % 89 CD3+ T Cell # 958 - 2388 Cells/uL 381 (L) CD4+CD3+ T Cell % 34 - 61 % 67 (H) CD4+CD3+ T Cell # 533 - 1674 Cells/uL 290 (L) CD4 Comment Clinical interpretation of lymphocyte subsets must be made with caution. Relative . . . 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 He has?leukopenia and?anemia with increased fatigue secondary to Anemia. ? Although his anemia has not changed, his leukopenia has resolved. ?? PLAN: +?BRAF?V600E mutation for recurrent hairy cell leukemia, on low dose Vermurafenib 240mg twice daily for refractory hairy cell leukemia. - Continue?antiviral and PCP prophylaxis with acyclovir 400mg twice daily and pentamidine 300mg monthly - Stop Neupogen - Check EKG for QT prolongation today on Vermurafenib - Continue vitamin B6 100mg once daily - Increase fluid for elevated Cr. - Repeat CBC, CMP, LDH, reticulocyte count ANDamp; OV in 4 weeks.? ? Gilberto Puga MD ?? Cc: Dr. Faiza Mercado Referring Provider: GILBERTO PUGA [[id number]] Allergies As of Date: 06/05/2017 Noted Allergy Reaction CIPRO (CIPROFLOXACIN) 09/26/2005 7 - Swelling 10 - Anaphylaxis ALLOPURINOL SODIUM 09/26/2005 2 - Rash BACTRIM (SULFAMETHOXAZOLE-TRIMETH*09/26/2005 2 - Rash IODINE (CONTRAST DYE) 09/26/2005 2 - Rash Comments: not a problem topically RITUXAN (RITUXIMAB) 03/24/2017 14 - Other: See Comments Comments: See nursing notes 03/24/18. Date Reviewed: 06/05/2017 Reviewed by: Oumou Yang - Fully Assessed Reason for Visit: Established Patient [175] Primary Visit Diagnosis:Hairy cell leukemia, in remission (HCC) [C91.41] Other Visit Diagnosis:Prostate cancer (HCC) [C61] Order(s):[facility] [[id number]] Order #: [id number] FUTURE Level of Service: EST PATIENT VISIT LEVEL 3 [[id number]] Disposition: Return in about 4 weeks (around 07/03/2017). Follow-up and Disposition History Recorded Prescriptions as of 06/05/2017 Sig: VEMURAFENIB 240 MG TABLET Take 1 tablet by mouth twice * PYRIDOXINE (VITAMIN B6) 100 M* Take 1 tablet by mouth once d* AMIODARONE 100 MG TABLET Take 100 mg by mouth once valerie* OMEPRAZOLE 40 MG CAPSULE,JESSICA* Take 1 capsule by mouth once * ATORVASTATIN 10 MG TABLET Take 10 mg by mouth once nelsy* FERROUS GLUCONATE 324 MG (36 * Take 1 tablet by mouth once d* * CARVEDILOL 6.25 MG TABLET Take 6.25 mg by mouth twice d* * FLOMAX 0.4 MG CAPSULE Take one(1) tablet daily. 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.31] INVALID FOR* H/O splenectomy [Z98.890, Z90.81] INVALID FOR* Prostate cancer (HCC) [C61] INVALID FOR* 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0 pg [place] High MCH 34.2 LAB WMCHC 30.5-36.0 g/dL [place] MCHC 32.7 LAB WRDW 11.5-15.0 % [place] High RDW 17.4 LAB WPLT 150-400 k/uL [place] Platelet Cnt 306 LAB WMPV 9.0-12.7 fL [place] MPV 9.3 Result Comment: Test performed at: [facility] [place] [address] [place], [place] [address] [place] [address]. LAB ABGRAN 1.45-7.50 k/uL Absol Gran 1.98 Count COMP METABOLIC PANEL Collected: 06/03/2017 Status: F Source: [place] 2:47 PM [facility] REPOSITORY TYPE CODE TESTS RESULT OUT OF REFERENCE UNITS RANGE LAB TP 6.3-8.0 g/dL Protein, Total 6.4 LAB ALB 3.9-4.9 g/dL Low Albumin 3.5 LAB CA 8.5-10.2 mg/dL Calcium, Total 8.6 LAB TBIL 0.2-1.3 mg/dL Bilirubin, Total 0.3 LAB ALKP 36-108 U/L Alkaline High Phosphatase 116 LAB AST 14-40 U/L Low AST 9 LAB GLU 74-99 mg/dL Glucose High 138 Result Comment: The [place] [employer] (ADA) provides guidance for cutoff values for fasting glucose and random glucose. The ADA defines fasting as no caloric intake for at least 8 hours. Fas ting plasma glucose results between 100 to 125 mg/dL indicate increased risk for diabetes (prediabetes). Fasting plasma glucose results greater than or equal to 126 mg/dL meet the criteria for diagnosis of diabetes. In the absence of unequivocal hyperglycemia, results should be confirmed by repeat testing. In a patient with classic symptoms of hyperglycemia or hyperglycemic crisis, random plasma glucose results greater than or equal to 200 mg/dL meet the criteria for diagnosis of diabetes. Reference: Standards of Medical Care in Diabetes 2016, [place] [employer]. Diabetes Care. 2016.39(Suppl 1). LAB BUN 9-24 mg/dL BUN 17 LAB CRET 0.73-1.22 mg/dL Creatinine High 1.40 LAB NA 136-144 mmol/L Sodium 139 LAB K 3.7-5.1 mmol/L Potassium 4.4 LAB CL 97-105 mmol/L Chloride 104 LAB CO2 22-30 mmol/L CO2 23 LAB AGAP 9-18 mmol/L Anion Gap 12 LAB ALT 10-54 U/L Low ALT 8 LAB GFRAA eGFR- Amer. 59 LAB GFRNAA . eGFR-All Other Races 49 Result Comment: eGFR (Estimated GFR) Units of measure: mL/min/1.73 meters squared eGFR is derived from the reexpressed MDRD Study equation using the following parameters: serum creatinine, age, gender and race. The creatinine assay has been calibrated to be traceable to IDMS. An eGFR <60 mL/min/1.73m2 for >3 months is consistent with chronic kidney disease. Refer to KDOQI guidelines for clinical interpretation. In patients with unstable renal function, e.g. those with acute kidney injury, the eGFR may not accurately reflect actual GFR. Performed By: #### CMP, LD6 #### [facility] [employer] [address] [place], [place] [address] LD Collected: 06/03/2017 Status: F Source: [facility] 2:47 PM [facility] REPOSITORY TYPE CODE TESTS RESULT OUT OF RANGE REFERENCE UNITS LAB LD 135-225 U/L LD 150 Performed By: #### CMP, LD6 #### [facility] [employer] [address] [place], [place] [address] HOSP Observed: 06/03/2017 Status: COMPLETED Source: [place] 2:00 PM [facility] REPOSITORY Infusion Center ([facility]) NITIN KINGSLEY ([id number]) 1935 M Date Time Provider Department 06/03/17 2:00 PM INJECTION [facility] During your visit today, we recorded the following information about you: Temperature Pulse Blood pressure Weight 97.6 degrees 67/minute 144/67 73.9 kg Vy Mchugh LPN, JUAN DAVID 06/03/2017 2:36 PM Signed Patient presents with: Imm/Inj Pt is identified by name and birthdate: Yes. Allergies and medications reviewed. Latex allergy? No. Does this patient have: Unplanned weight loss or gain of greater than 10 pounds, or a change of appetite over the last year? No Does the patient have any concerns about safety in the home/falls? Not at risk for falls Has the patient fallen in the past year? No Does the patient have difficulty performing or completing routine daily living activities? No Does this patient have concerns about personal safety? No Is patient having pain? Pain: No=0 (pain 0 on a scale of 0-10). Health Maintenance: Reviewed and updated. Does patient have MyChart access or Caregiver proxy: no Pt/Caregiver willingness and readiness to learn assessed: Yes. Barriers: none neupogen injection administered, tolerated well, no immediate adverse reactions noted. Vy Mchugh LPN Referring Provider: GILBERTO PUGA [[id number]] Allergies As of Date: 06/03/2017 Noted Allergy Reaction CIPRO (CIPROFLOXACIN) 09/26/2005 7 - Swelling 10 - Anaphylaxis ALLOPURINOL SODIUM 09/26/2005 2 - Rash BACTRIM (SULFAMETHOXAZOLE-TRIMETH*09/26/2005 2 - Rash IODINE (CONTRAST DYE) 09/26/2005 2 - Rash Comments: not a problem topically RITUXAN (RITUXIMAB) 03/24/2017 14 - Other: See Comments Comments: See nursing notes 03/24/18. 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] H/O splenectomy [Z90.81] Hairy cell leukemia, in remission ([facility]) [C91.41] Order(s):[] filgrastim 300 mcg injection (NEUPOGEN)Disp: Rfl: Prescriptions as of 06/03/2017 Sig: VEMURAFENIB 240 MG TABLET Take 1 tablet by mouth twice * PYRIDOXINE (VITAMIN B6) 100 M* Take 1 tablet by mouth once d* AMIODARONE 100 MG TABLET Take 100 mg by mouth once valerie* OMEPRAZOLE 40 MG CAPSULE,JESSICA* Take 1 capsule by mouth once * ATORVASTATIN 10 MG TABLET Take 10 mg by mouth once nelsy* FERROUS GLUCONATE 324 MG (36 * Take 1 tablet by mouth once d* * CARVEDILOL 6.25 MG TABLET Take 6.25 mg by mouth twice d* * FLOMAX 0.4 MG CAPSULE Take one(1) tablet daily. 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 Allergies and medications reviewed. Latex allergy? No. Does this patient have: Unplanned weight loss or gain of greater than 10 pounds, or a change of appetite over the last year? No Does the patient have any concerns about safety in the home/falls? Not at risk for falls Has the patient fallen in the past year? No Does the patient have difficulty performing or completing routine daily living activities? No Does this patient have concerns about personal safety? No Is patient having pain? Pain: No=0 (pain 0 on a scale of 0-10). Health Maintenance: Reviewed and updated. Does patient have MyChart access or Caregiver proxy: no Pt/Caregiver willingness and readiness to learn assessed: Yes. Barriers: none neupogen injection administered, tolerated well, no immediate adverse reactions noted. Vy Mchugh LPN Prescriptions ordered this encounter Disp Refills Start End FILGRASTIM 300 MCG/ML INJECTION SOLU* 06/03/2017 06/03/2017 Route: SUBCUTANEOUS Encounter Status:Closed by ANGELA GLASS LPN on 06/03/17 HOSP Observed: 05/29/2017 Status: COMPLETED Source: [place] 11:00 AM [facility] REPOSITORY Infusion Center ([facility]) ALBANIANNITIN SCALES ([id number]) 1935 M Date Time Provider Department 05/29/17 11:00 AM INJECTION [facility] During your visit today, we recorded the following information about you: Temperature Pulse Blood pressure Weight 97.9 degrees 69/minute 146/64 72.1 kg Angela Glass LPN 05/29/2017 11:13 AM Signed Patient presents with: Imm/Inj Pt is identified by name and birthdate: Yes. Allergies and medications reviewed. Latex allergy? No. Does this patient have: Unplanned weight loss or gain of greater than 10 pounds, or a change of appetite over the last year? No Does the patient have any concerns about safety in the home/falls? Not at risk for falls Has the patient fallen in the past year? No Does the patient have difficulty performing or completing routine daily living activities? No Does this patient have concerns about personal safety? No Is patient having pain? Pain: No=0 (pain 0 on a scale of 0-10). Health Maintenance: Reviewed and updated. Does patient have MyChart access or Caregiver proxy: no Pt/Caregiver willingness and readiness to learn assessed: Yes. Barriers: none. Neupogen injection right arm, tolerated well, no adverse effects. Angela Glass LPN Referring Provider: GILBERTO PUGA [[id number]] Allergies As of Date: 05/29/2017 Noted Allergy Reaction CIPRO (CIPROFLOXACIN) 09/26/2005 7 - Swelling 10 - Anaphylaxis ALLOPURINOL SODIUM 09/26/2005 2 - Rash BACTRIM (SULFAMETHOXAZOLE-TRIMETH*09/26/2005 2 - Rash IODINE (CONTRAST DYE) 09/26/2005 2 - Rash Comments: not a problem topically RITUXAN (RITUXIMAB) 03/24/2017 14 - Other: See Comments Comments: See nursing notes 03/24/18. 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] H/O splenectomy [Z90.81] Hairy cell leukemia, in remission (HCC) [C91.41] Order(s):[] filgrastim 300 mcg injection (NEUPOGEN)Disp: Rfl: Prescriptions as of 05/29/2017 Sig: VEMURAFENIB 240 MG TABLET Take 1 tablet by mouth twice * PYRIDOXINE (VITAMIN B6) 100 M* Take 1 tablet by mouth once d* AMIODARONE 100 MG TABLET Take 100 mg by mouth once valerie* OMEPRAZOLE 40 MG CAPSULE,JESSICA* Take 1 capsule by mouth once * ATORVASTATIN 10 MG TABLET Take 10 mg by mouth once nelsy* FERROUS GLUCONATE 324 MG (36 * Take 1 tablet by mouth once d* * CARVEDILOL 6.25 MG TABLET Take 6.25 mg by mouth twice d* * FLOMAX 0.4 MG CAPSULE Take one(1) tablet daily. 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 Allergies and medications reviewed. Latex allergy? No. Does this patient have: Unplanned weight loss or gain of greater than 10 pounds, or a change of appetite over the last year? No Does the patient have any concerns about safety in the home/falls? Not at risk for falls Has the patient fallen in the past year? No Does the patient have difficulty performing or completing routine daily living activities? No Does this patient have concerns about personal safety? No Is patient having pain? Pain: No=0 (pain 0 on a scale of 0-10). Health Maintenance: Reviewed and updated. Does patient have MyChart access or Caregiver proxy: no Pt/Caregiver willingness and readiness to learn assessed: Yes. Barriers: none. Neupogen injection right arm, tolerated well, no adverse effects. Angela Glass LPN Prescriptions ordered this encounter Disp Refills Start End FILGRASTIM 300 MCG/ML INJECTION SOLU* 05/29/2017 05/29/2017 Route: SUBCUTANEOUS Encounter Status:Closed by VY MCHUGH on 05/29/17 OBSOLETE Observed: 05/28/2017 Status: COMPLETED Source: [place] 12:00 AM [facility] REPOSITORY Refill ([place]) NITIN KINGSLEY ([id number]) 1935 M Date Time Provider Department 05/28/17 GILBERTO PUGA During your visit today, we recorded the following information about you: Allergies As of Date: 05/28/2017 Noted Allergy Reaction CIPRO (CIPROFLOXACIN) 09/26/2005 7 - Swelling 10 - Anaphylaxis ALLOPURINOL SODIUM 09/26/2005 2 - Rash BACTRIM (SULFAMETHOXAZOLE-TRIMETH*09/26/2005 2 - Rash IODINE (CONTRAST DYE) 09/26/2005 2 - Rash Comments: not a problem topically RITUXAN (RITUXIMAB) 03/24/2017 14 - Other: See Comments Comments: See nursing notes 03/24/18. Date Reviewed: 05/27/2017 Reviewed by: Vy Obrien (Juan David) JUAN DAVID Mchugh - Fully Assessed Reason for Visit: Refill Request [94] Visit Diagnoses:Chemotherapy-induced neutropenia (HCC) [D70.1, T45.1X5A] Hairy cell leukemia, in relapse (HCC) [C91.42] Order(s):vemurafenib (ZELBORAF) 240 mg tabTake 1 tablet by mouth twice daily.Disp: 60 tabletRfl: 0 Prescriptions as of 05/28/2017 Sig: VEMURAFENIB 240 MG TABLET Take 1 tablet by mouth twice * PYRIDOXINE (VITAMIN B6) 100 M* Take 1 tablet by mouth once d* AMIODARONE 100 MG TABLET Take 100 mg by mouth once valerie* OMEPRAZOLE 40 MG CAPSULE,JESSICA* Take 1 capsule by mouth once * ATORVASTATIN 10 MG TABLET Take 10 mg by mouth once nelsy* FERROUS GLUCONATE 324 MG (36 * Take 1 tablet by mouth once d* * CARVEDILOL 6.25 MG TABLET Take 6.25 mg by mouth twice d* * FLOMAX 0.4 MG CAPSULE Take one(1) tablet daily. 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 Medications Discontinued During This Encounter vemurafenib (ZELBORAF) 240 mg tab 60 t* 0 05/19/2017 05/28/2017 Class: Print RX Route: ORAL Sig: Take 1 tablet by mouth twice daily. Disc: Reason for discontinue is not on file. Encounter Status:Closed by JOLENE BUCHANAN DO on 05/28/17 HOSP Observed: 05/27/2017 Status: COMPLETED Source: [place] 2:30 PM [facility] REPOSITORY Infusion Center ([facility]) NITIN KINGSLEY ([id number]) 1935 M Date Time Provider Department 05/27/17 2:30 PM INJECTION [facility] During your visit today, we recorded the following information about you: Temperature Pulse Blood pressure Weight 97.9 degrees 63/minute 153/67 72.3 kg Vy Mchugh LPN, JUAN DAVID 05/27/2017 2:49 PM Signed Patient presents with: Imm/Inj Pt is identified by name and birthdate: Yes. Allergies and medications reviewed. Latex allergy? No. Does this patient have: Unplanned weight loss or gain of greater than 10 pounds, or a change of appetite over the last year? No Does the patient have any concerns about safety in the home/falls? Not at risk for falls Has the patient fallen in the past year? No Does the patient have difficulty performing or completing routine daily living activities? No Does this patient have concerns about personal safety? No Is patient having pain? Pain: Yes, pain rated 3 on a scale of 0-10 (0=none, 10=worst). Location: bilateral arms, legs and neck. Character: aching. Duration: 5 days. Frequency: occurs intermittently. Health Maintenance: Reviewed and updated. Does patient have MyChart access or Caregiver proxy: no Pt/Caregiver willingness and readiness to learn assessed: Yes. Barriers: none Neupogen injection administered, right arm tolerated well, no immediate adverse reactions noted. Vy Mchugh LPN Referring Provider: GILBERTO PUGA [[id number]] Allergies As of Date: 05/27/2017 Noted Allergy Reaction CIPRO (CIPROFLOXACIN) 09/26/2005 7 - Swelling 10 - Anaphylaxis ALLOPURINOL SODIUM 09/26/2005 2 - Rash BACTRIM (SULFAMETHOXAZOLE-TRIMETH*09/26/2005 2 - Rash IODINE (CONTRAST DYE) 09/26/2005 2 - Rash Comments: not a problem topically RITUXAN (RITUXIMAB) 03/24/2017 14 - Other: See Comments Comments: See nursing notes 03/24/18. 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] H/O splenectomy [Z90.81] Hairy cell leukemia, in remission (HCC) [C91.41] Order(s):[] filgrastim 300 mcg injection (NEUPOGEN)Disp: Rfl: Prescriptions as of 05/27/2017 Sig: VEMURAFENIB 240 MG TABLET Take 1 tablet by mouth twice * PYRIDOXINE (VITAMIN B6) 100 M* Take 1 tablet by mouth once d* AMIODARONE 100 MG TABLET Take 100 mg by mouth once valerie* OMEPRAZOLE 40 MG CAPSULE,JESSICA* Take 1 capsule by mouth once * ATORVASTATIN 10 MG TABLET Take 10 mg by mouth once nelsy* FERROUS GLUCONATE 324 MG (36 * Take 1 tablet by mouth once d* * CARVEDILOL 6.25 MG TABLET Take 6.25 mg by mouth twice d* * FLOMAX 0.4 MG CAPSULE Take one(1) tablet daily. 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 Allergies and medications reviewed. Latex allergy? No. Does this patient have: Unplanned weight loss or gain of greater than 10 pounds, or a change of appetite over the last year? No Does the patient have any concerns about safety in the home/falls? Not at risk for falls Has the patient fallen in the past year? No Does the patient have difficulty performing or completing routine daily living activities? No Does this patient have concerns about personal safety? No Is patient having pain? Pain: Yes, pain rated 3 on a scale of 0-10 (0=none, 10=worst). Location: bilateral arms, legs and neck. Character: aching. Duration: 5 days. Frequency: occurs intermittently. Health Maintenance: Reviewed and updated. Does patient have MyChart access or Caregiver proxy: no Pt/Caregiver willingness and readiness to learn assessed: Yes. Barriers: none Neupogen injection administered, right arm tolerated well, no immediate adverse reactions noted. Vy Mchugh LPN Prescriptions ordered this encounter Disp Refills Start End FILGRASTIM 300 MCG/ML INJECTION SOLU* 05/27/2017 05/27/2017 Route: SUBCUTANEOUS Encounter Status:Closed by VY MCHUGH on 05/27/17 ALLERGIES ALLERGIES DATE TYPE / CODE NAME / CODE REACTION SEVERITY SOURCE Drug ciprofloxacin Unknown Unknown [place] 8 Allergy/444276721( HCl/W460336130(RXN Community SNOMED CT) ORM) Hospital Repository Drug iodine/G951468212( Unknown Unknown [place] 8 Allergy/870311859( RXNORM) Community SNOM[facility]) Hospital Repository Drug allopurinol/O45631 Swelling Unknown [place] 8 Allergy/422869480( 1084(RXNORM) [facility]) Hospital Repository Drug sulfamethoxazole/F Unknown Unknown [place] 8 Allergy/736321687( 841582841(RXNORM) Community SN[facility]) Hospital Repository Drug trimethoprim/F0060 Unknown Unknown [place] 8 Allergy/749685778( 75321(RXNORM) Community SNOM[facility]) Hospital Repository Drug ciprofloxacin/F006 Unknown Unknown [place] 8 Allergy/847403198( 664313(RXNORM) [facility] SNOMED CT) Hospital Repository DRUG RITUXIMAB OTHER: SEE C [facility] 7 INGREDI/506976425( Clinic Main SNOMED CT) [place] Repository DRUG CIPROFLOXACIN SWELLING [facility] 6 INGREDI/417116057( [facility] Main SNOMED CT) [place] Repository DRUG ALLOPURINOL SODIUM RASH [facility] 6 INGREDI/768647347( [facility] Main SNOMED CT) [place] Repository DRUG/538834060(SNO SULFAMETHOXAZOLE-T RASH [facility] [address]) RIMETHOPRIM [facility] Main [place] Repository DRUG CONTRAST DYE RASH [facility] 6 INGREDI/484808666( [facility] Main SNOMED CT) [place] Repository Miscellaneous allopurinol 140219781 [facility] Allergy/580241790( [facility] SN[facility] Repository Miscellaneous iodine [facility] Allergy/035442506( Regional SNOMED CT) Health System Repository Drug/583213618(SNO Bactrim 961242102 [facility] MED [facility]) [facility] Repository Drug/189691062(SNO Cipro [facility] MED [facility]) [facility] Repository ENCOUNTERS ENCOUNTERS ADMIT/DISCHARGE ACCOUNT ADMITTING ENCOUNTER LOCATION SOURCE NUMBER CLASS 05/19/2018 [id number] Ambulatory BMSBuilding:Jenna Davis MS[facility] Repository 05/19/2018 [id number] Ambulatory BMSBuilding:B [place].[facility] Repository 05/19/2018 [id number] Ambulatory [facility] Hospital ing:[facility]S Repository 05/07/2018/05/10/20 [id number] Ambulatory [address] Repository 05/06/2018 [id number] [facility] Repository 05/06/2018/05/06/20 [id number] Ambulatory BMSBuilding:B [place] 18 MS.[facility] Repository 04/30/2018/04/30/20 [id number] Ambulatory [address] Repository 03/18/2018/03/18/20 [id number] Ambulatory [address] Repository 03/18/2018/03/23/20 [id number] Ambulatory [address] Repository 02/05/2018/02/10/20 [id number] Ambulatory [address] Repository 01/28/2018/01/30/20 [id number] Ambulatory [address] Repository 12/17/2017/12/18/19 [id number] Zari, Ambulatory [address] [facility] ing:CD:[id number] [place] [address]Room: Repository CD:[id number] 11/25/2017 [id number] Ambulatory [facility] Hospital ing:PSN Repository 11/05/2017/11/07/19 [id number] Ambulatory [address] Repository 11/05/2017 [id number] [facility] ing[facility]LAB Repository 11/04/2017/11/05/19 [id number] Ambulatory BMSBuilding:B [place] 18 [facility] Repository 11/03/2017 [id number] Ambulatory [facility] Repository 10/29/2017/10/31/19 [id number] Ambulatory [address] Repository 10/16/2017 [id number] Ambulatory BMSBuilding:B [place] [facility] Repository 10/02/2017 [id number] Ambulatory [facility] Hospital ing:PSN Repository 09/29/2017 [id number] Ambulatory [facility] Repository 09/23/2017 [id number] Ambulatory BMSBuilding:[place]enna [place] MS.[facility] Repository 09/01/2017 [id number] Ambulatory [facility] ing:PSN Repository 08/28/2017/09/01/19 [id number] Ambulatory [address] Repository 08/21/2017/08/22/19 [id number] Ambulatory [address] Repository 08/18/2017 [id number] Ambulatory [facility] ing:LAB Repository 07/31/2017 [id number] Ambulatory [facility] Repository 07/31/2017/07/31/19 [id number] Ambulatory [address] Repository 07/23/2017 [id number] Ambulatory [facility] ing:PSN Repository 07/03/2017/07/08/19 [id number] Ambulatory [address] Repository 06/26/2017 [id number] Ambulatory [facility] ing:PSN Repository 06/26/2017/06/26/19 [id number] Ambulatory [address] Main [place] Repository 06/05/2017/06/05/20 [id number] Ambulatory [address] Repository 06/05/2017 [id number] Ambulatory [facility] Repository 06/05/2017/06/11/19 [id number] Ambulatory [address] Repository 06/05/2017/06/05/20 [id number] Ambulatory [address] Repository 06/03/2017/06/04/20 [id number] Ambulatory [address] Repository 06/03/2017/06/03/20 [id number] Ambulatory [address] Main [place] Repository 05/29/2017/06/02/20 [id number] Ambulatory [address] Repository 05/27/2017/05/28/20 [id number] Ambulatory [address] Repository PAYERS PAYERS ENCOUNTER GUARANTOR PAYER SUBSCRIBER SOURCE 05/19/2018 NITIN [id number] GILBERT Insurance:MEDICARE [place]: [facility], PART A BPolicy [id number] Hospital [place] [address]Dap: Number: Repository [id number] (HP) Date:2018-05-19 05/19/2018 Secondary NITIN Davis Insurance:AARPPolicy ALBANIANDOB: Community Number: [id number] Hospital [id number] Repository Date:7407-28-39KR [address], [place] [address]IG: 05/19/2018 Tertiary NOT GIVENUNK [place] Insurance:SELF PAY [facility] Number: Effective Repository Date:2018-05-19 05/19/2018 NITIN L Primary NITIN Davis [id number] GILBERT Insurance:MEDICARE ALBANIANDOB: [facility] PART A [facility] [id number] [place] [address]Pkk: Number: Repository [id number] (HP) Date:2018-05-06 05/19/2018 Secondary NITIN Davis Insurance:AARPPolicy ALBANIANDOB: Community Number: [id number] Hospital [id number] Repository Date:5219-82-41CM [address]MLYZKQY, [place] [address]AY: 05/19/2018 Tertiary NOT GIVENUNK [place] Insurance:SELF PAY [facility] Number: Effective Repository Date:2018-05-19 05/19/2018 NITIN L Primary NITIN [place] [id number] GILBERT Insurance:MEDICARE ALBANIANDOB: [facility] PART A [facility] [id number] Vista [facility] [address]Nuf: Number: Repository [id number] (HP) Date:2018-05-06 05/19/2018 Secondary NITIN Davis Insurance:AARPPolicy ALBANIANDOB: Community Number: [id number] Hospital [id number] Repository Date:3478-46-94XZ [address]FRZXBJ, [place] [address]LP: 05/19/2018 Tertiary NOT GIVENUNK [place] Insurance:SELF PAY [facility] Number: Effective Repository Date:2018-05-06 05/06/2018 NITIN Beyer Primary NITIN [place] [id number] GILBERT Insurance:MEDICARE WELDOB: [facility], PART A [facility] [id number] Vista Hospital [address]Bvz: Number: Repository [id number] (HP) Date:2018-05-06 05/06/2018 Secondary NITIN L [place] Insurance:AARPPolicy WELSHDOB: Community Number: [id number] Hospital [id number] Repository Date:8136-41-36TL [address], [place] [address]BP: 05/06/2018 Tertiary NOT GIVENUNK [place] Insurance:SELF PAY [facility] Number: Effective Repository Date:2018-05-06 05/06/2018 NITIN Beyer Primary NITIN Davis [id number] GILBERT Insurance:MEDICARE ALBANIANDOB: [facility], PART A [facility] [id number] Vista Hospital [address]Pjm: Number: Repository [id number] (HP) Date:2017-11-04 05/06/2018 Secondary NITIN L [place] Insurance:AARPPolicy WELDOB: Community Number: [id number] Hospital [id number] Repository Date:8759-54-44KI [facility] [address]VC, [place] [address]CF: 05/06/2018 Tertiary NOT GIVENUNK [place] Insurance:SELF PAY [facility] Number: Effective Repository Date:2018-04-05 12/17/2017 NITIN Beyer Primary NITIN Beyer [facility]: [facility] W icy Number: Effective [id number] Alphonso CRESPO Date:2017-12-17 CHERIE [facility] 1198[place]60-[place] Name:CD:[id number] [facility] [address]Xbl: 288229HSBXGAHJCQ, [place] [address]Ynw: [id number]: [phone] () [phone] (HP) (WP) 12/17/[address] Insurance:AARPPolicy ALBANIANDOB: [facility] Number: Effective [id number] System Date:2017-12-17 CASHIERS Repository [id number], Name:CD:[id number] [facility] [place]99[place]TGQ, [place] [address]Vfq: [address]MY: [phone] (HP) (WP) 11/25/2017 NITIN L Primary NITIN L [place] [id number] GILBERT Insurance:MEDICARE [facility]: [facility], PART A [facility] [id number] Vista Hospital [address]Gdm: Number: Repository [id number] () Date:2017-11-20 11/25/2017 Secondary NITIN L [place] Insurance:[facility]: Community Number: [id number] Hospital [id number] Repository Date:7326-53-75TS [address]YRNZQEG, [place] [address]NT: 11/25/2017 Tertiary NOT GIVENUNK [place] Insurance:SELF PAY [facility] Number: Effective Repository Date:2017-11-20 11/05/2017 NITIN L Primary NITIN L [place] [id number] [place]ERT Insurance:MEDICARE [facility]: [facility], PART A [facility] [id number] Vista Hospital [address]Dga: Number: Repository [id number] (HP) Date:2017-11-05 11/05/2017 Secondary NITIN L [place] Insurance:[facility]: Community Number: [id number] Hospital [id number] Repository Date:5839-29-24ED [address]AHTMTTN, [place] [address]OR: 11/05/2017 Tertiary NOT GIVENUNK [place] Insurance:SELF PAY [facility] Number: Effective Repository Date:2017-11-05 11/04/2017 NITIN Beyer Primary NITIN Davis [id number] [place] Insurance:MEDICARE WELSHDOB: [facility] PART A [facility] [id number] [place] [address]Fso: Number: Repository [id number] () Date:2017-05-18 11/04/2017 Secondary NITIN Beyer [place] Insurance:AARPPolicy WELSHDOB: Community Number: [id number] Hospital [id number] Repository Date:8050-63-36TJ [address]CYAUQDF, [place] [address]RP: 11/04/2017 Tertiary NOT GIVENUNK [place] Insurance:SELF PAY [facility] Number: Effective Repository Date:2017-11-04 11/03/2017 Nitin Beyer Primary Nitin Davis [id number] [place] Insurance:MEDICARE WelshDOB: [facility], PART A [facility] [id number] Hospital [place] [address]Xuf: Number: Repository [id number] () Date:2017-11-03 11/03/2017 Secondary Nitin Kayleen [place] Insurance:AARPPolicy WelshDOB: Community Number: [id number] Hospital [id number] Repository Date:4199-27-98FZ [facility] [address]VOSTHKT, [place] [address]EP: 11/03/2017 Tertiary NOT GIVENUNK [place] Insurance:SELF PAY [facility] Number: Effective Repository Date:2017-11-03 10/16/2017 Nitin Beyer Primary Nitin Davis [id number] [place] Insurance:MEDICARE WelshDOB: [facility], PART A [facility] [id number] Hospital [place] [address]Gmi: Number: Repository [id number] (HP) Date:2017-10-16 10/16/2017 Secondary Nitin Davis Insurance:AARPPolicy WelshDOB: Community Number: [id number] Hospital [id number] Repository Date:9735-94-32JH [address]WDDBFRI, [place] [address]SY: 10/16/2017 Tertiary NOT GIVENUNK [place] Insurance:SELF PAY [facility] Number: Effective Repository Date:2017-10-16 10/02/2017 Nitin Beyer Primary Nitin Davis [id number] [place] Insurance:MEDICARE WelDOB: [facility], PART A [facility] [id number] Vista Hospital [address]Sco: Number: Repository [id number] () Date:2017-09-21 10/02/2017 Secondary Nitin Beyer [place] Insurance:AARPPolicy WelshDOB: Community Number: [id number] Hospital [id number] Repository Date:7259-12-00ZS [address]QJIYXIF, [place] [address]KW: 10/02/2017 Tertiary NOT GIVENUNK [place] Insurance:SELF PAY [facility] Number: Effective Repository Date:2017-09-21 09/29/2017 Nitin Beyer Primary Nitin Davis [id number] [place] Insurance:MEDICARE PhoenixDOB: [facility], PART A [facility] [id number] Vista Hospital [address]Dwc: Number: Repository [id number] () Date:2017-09-29 09/29/2017 Secondary Nitin [place] Insurance:AARPPolicy PhoenixDOB: Community Number: [id number] Hospital [id number] Repository Date:2190-64-79KS [address]ZIHHFCP, [place] [address]RZ: 09/29/2017 Tertiary NOT GIVENUNK [place] Insurance:SELF PAY [facility] Number: Effective Repository Date:2017-09-29 09/23/2017 Nitin L Primary Nitin Davis [id number] [place] Insurance:MEDICARE WelshDOB: [facility], PART A [facility] [id number] Vista Hospital [address]Gbm: Number: Repository [id number] (HP) Date:2017-09-23 09/23/2017 Secondary Nitin Beyer [place] Insurance:AARPPolicy WelshDOB: Community Number: [id number] Hospital [id number] Repository Date:4756-41-34MW [address]IVCVVBF, [place] [address]KE: 09/23/2017 Tertiary NOT GIVENUNK [place] Insurance:SELF PAY [facility] Number: Effective Repository Date:2017-09-23 09/01/2017 Nitin L Primary Nitin Davis [id number] [place] Insurance:MEDICARE WelDOB: [facility], PART A [facility] [id number] Vista Hospital [address]Waf: Number: Repository [id number] (HP) Date:2017-08-28 09/01/2017 Secondary Nitin L [place] Insurance:AARPPolicy PhoenixDOB: Community Number: [id number] Hospital [id number] Repository Date:6815-71-00AJ [address]DWRWWBP, [place] [address]RG: 09/01/2017 Tertiary NOT GIVENUNK [place] Insurance:SELF PAY [facility] Number: Effective Repository Date:2017-08-28 08/18/2017 Nitin L Primary Nitin Davis [id number] [place] Insurance:MEDICARE WelDOB: [facility], PART A [facility] [id number] Vista Hospital [address]Wsc: Number: Repository [id number] (HP) Date:2017-08-18 08/18/2017 Secondary Nitin L [place] Insurance:AARPPolicy PhoenixDOB: Community Number: [id number] Hospital [id number] Repository Date:9544-64-44CC [address]EEZFPHA, [place] [address]XS: 08/18/2017 Tertiary NOT GIVENUNK [place] Insurance:SELF PAY [facility] Number: Effective Repository Date:2017-08-18 07/23/2017 Nitin Beyer Primary Nitin [id number] [place] Insurance:MEDICARE WelDOB: [facility], PART A [facility] [id number] Vista Hospital [address]Qbl: Number: Repository [id number] (HP) Date:2017-07-15 07/23/2017 Secondary Nitin Beyer [place] Insurance:AARPPolicy WelshDOB: Community Number: [id number] Hospital [id number] Repository Date:5016-37-18MO [address]SBEKWRV, [place] [address]QX: 07/23/2017 Tertiary NOT GIVENUNK [place] Insurance:SELF PAY [facility] Number: Effective Repository Date:2017-07-15 06/26/2017 Nitin Beyer Primary Nitin [id number] [place] [facility] [id number] Vista Hospital [address]Mmq: Number: Repository [id number] (HP) Date:2017-06-24 06/26/2017 Secondary Nitin [place] Insurance:AARPPolicy AlexandriashDOB: Community Number: [id number] Hospital [id number] Repository Date:9586-94-80TB [address]AYBAR, [place] [address]KA: 06/26/2017 Tertiary NOT GIVENUNK [place] Insurance:SELF PAY [facility] Number: Effective Repository Date:2017-06-24
== END ==
PROVIDERS: Referring Provider Internal Medicine Cardiovascular Disease; Visit Provider Internal Medicine Cardiovascular Disease
DX: I48.0 Paroxysmal atrial fibrillation (principal); Z79.899 Other long term (current) drug therapy
CPT/HCPCS: 36415; 80076; 84436; 84443

== ENCOUNTER → 2018-05-19 13:32 | Outpatient (CLI) | payer MEDICARE, OTHER, SELFPAY ==
[2018-05-06 14:16] VITALS: BMI 25.2
--- NOTE | 2018-05-19 13:33 | ECHOD_ITS ---
Reason For Study: ARRHYTHMIA Procedure This was a 2D Doppler, Color Flow transthoracic echocardiogram. The study was technically difficult. Exam performed in department. Left Ventricle Normal LV size. Left ventricular systolic function is normal. The estimated ejection fraction is 55 %. Stage 1 diastolic dysfunction. The global longitudinal strain = -16% (abnormal). No regional wall motion abnormalities noted. Right Ventricle Normal RV size. Normal systolic function. Atria The left atrium is mildly enlarged. Normal right atrium. Mitral Valve Normal mitral valve. Mild (1+) eccentric mitral valve insufficiency. Tricuspid Valve Normal tricuspid valve. Aortic Valve Trisinus/trileaflet aortic valve. Mild-Moderate (1-2+) eccentric aortic valve insufficiency. Pulmonic Valve Normal pulmonic valve. Great Vessels Normal aortic root. The pulmonary artery is normal size. Normal inferior vena cava. Pericardium/Pleural No pericardial effusion. MMode/2D Measurements & Calculations LVIDd: 4.3 cm IVSd: 1.3 cm Ao root diam: 3.6 cm LVIDs: 3.1 cm LVPWd: 0.96 cm RVDd: 3.3 cm FS: 29.8 % LAV(MOD-bp): 68.4 ml LA A4 area: 22.2 cm2 LA dimension(2D): 3.7 cm LAV(MOD-bp) Indexed: 37.7 ml/m2 LAV(MOD-sp2): 61.8 ml LAV(MOD-sp4): 72.2 ml RA A4 area: 12.1 cm2 Time Measurements MV dec time: 0.30 sec Doppler Measurements & Calculations MV E max justice: 54.7 cm/sec Lat Peak E' Justice: 7.7 cm/sec Med Peak E' Justice: 5.9 cm/sec MV A max justice: 130.2 cm/sec E/E' lat: 7.1 E/E' med: 9.2 MV E/A: 0.42 Ao V2 max: 139.1 cm/sec AI max justice: 421.8 cm/sec LV V1 max: 105.2 cm/sec Ao max P.7 mmHg AI max P.2 mmHg LV V1 max P.4 mmHg AI dec slope: 185.0 cm/sec2 AI P1/2t: 667.7 msec PA V2 max: 81.4 cm/sec TR max justice: 215.1 cm/sec TR max P.5 mmHg Interpretation Summary Normal LV size. Left ventricular systolic function is normal. The estimated ejection fraction is 55 %. Stage 1 diastolic dysfunction. Mild-Moderate (1-2+) eccentric aortic valve insufficiency. The global longitudinal strain = -16% (abnormal). Ordering Physician: Vasquez Gonzalez Referring Physician: Brian Mercado Performed By: Dedra Beckford, RDCS, RVT
--- OUTSIDE RECORDS SUMMARY | 2018-07-05 17:30 | XMS RPT_ITS ---
:1935 Author Organization [facility] Support Name Relationship Address Phone R Unavailable Unavailable Unavailable LURDES JEFFRIES Unavailable [address] + [place] [address] R Unavailable Unavailable Unavailable LURDES JEFFRIES Unavailable [address] + [place] [address] R Unavailable Unavailable Unavailable LURDES JEFFRIES Unavailable [address] + [place] [address] R Unavailable Unavailable Unavailable LURDES JEFFRIES Unavailable [address] + [place] [address] R Unavailable Unavailable Unavailable LURDES JEFFRIES Unavailable [address] + [place] [address] R Unavailable Unavailable Unavailable LURDES JEFFRIES Unavailable [address] + [place] [address] R Unavailable Unavailable Unavailable LURDES JEFFRIES Unavailable [address] + [place] [address] R Unavailable Unavailable Unavailable LURDES JEFFRIES Unavailable [address] + [place] [address] R Unavailable Unavailable Unavailable LURDES JEFFRIES Unavailable [address] + [place] [address] R Unavailable Unavailable Unavailable LURDES JEFFRIES Unavailable [address] + [place] [address] R Unavailable Unavailable Unavailable LURDES JEFFRIES Unavailable [address] + [place] [address] R Unavailable Unavailable Unavailable LURDES JEFFRIES Unavailable [address] + [place] [address] R Unavailable Unavailable Unavailable LURDES JEFFRIES Unavailable [address] + [place] [address] R Unavailable Unavailable Unavailable LURDES JEFFRIES Unavailable [address] + [place] [address] R Unavailable Unavailable Unavailable LURDES JEFFRIES Unavailable [address] + [place] [address] R Unavailable Unavailable Unavailable LURDES JEFFRIES Unavailable [address] + [place] [address] Care Team Providers Name Role Phone EDD, LAPMAN Attending Unavailable EDD, LAPMAN Referring Unavailable EDD, LAPMAN Referring Unavailable EDD, LAPMAN Referring Unavailable EDD, LAPMAN Referring Unavailable EDD, LAPMAN Attending Unavailable EDD, LAPMAN Referring Unavailable JOLENE BUCHANAN Referring Unavailable EDD, LAPMAN Attending Unavailable EDD, LAPMAN Referring Unavailable EDD, LAPMAN Referring Unavailable EDD, LAPMAN Attending Unavailable EDD, LAPMAN Referring Unavailable CA OROZCO Attending Unavailable FAIZA MERCADO Referring Unavailable PAM, CA Referring Unavailable EDD, LAPMAN Referring Unavailable EDD, LAPMAN Attending Unavailable EDD, LAPMAN Referring Unavailable Michael Hameed Admitting Unavailable Michael Hameed Attending Unavailable Lee Olivas Primary Care Unavailable Lisa, Gamaliel Attending Unavailable Lisa, Gamaliel Referring Unavailable Faiza Mercado Primary Care Unavailable Lisa, Gamaliel Consulting Unavailable Ashtyn Fuentes Attending Unavailable Edd, Lapman Attending Unavailable Edd, Lapman Referring Unavailable Faiza Mercado Primary Care Unavailable Lisa, Gamaliel Attending Unavailable Lisa, Gamaliel Referring Unavailable Faiza Mercado Primary Care Unavailable [...] Care Unavailable Diana Benton Attending Unavailable Diana Betnon Referring Unavailable Faiza Mercado Primary Care Unavailable Edd, Lapman Attending Unavailable Edd, Lapman Referring Unavailable Faiza Mercado Primary Care Unavailable Lisa, Vasquez Attending Unavailable Faiza Mercado Referring Unavailable Lisa, Gamaliel Attending Unavailable Lisa, Vasquez Referring Unavailable Mercado, Faiza Primary Care Unavailable Lisa, Vasquez Attending Unavailable Lisa, Vasquez Referring Unavailable Faiza Mercado Primary Care Unavailable PROBLEMS PROBLEMS DATE TYPE CONDITION / CODE ATTENDING STATUS SOURCE 05/19/2018 Unknown I46.9 - Cardiac Lisa, Vasquez Active [facility] arrest, cause Community unspecified / Hospital I46.9(ICD-10) Repository 05/06/2018 Unknown Z79.899 - Other long Lisa, Gamaliel Active [facility] term (current) drug Community therapy / Hospital Z79.899(ICD-10) Repository 05/06/2018 Unknown I48.0 - Paroxysmal Lisa, Gamaliel Active [facility] atrial fibrillation / Community I48.0(ICD-10) Hospital Repository 05/06/2018 Unknown I48.92 - Unspecified Lisa, Vasquez Active [facility] atrial flutter / Community I48.92(ICD-10) Hospital Repository 05/06/2018 Unknown I10 - Essential Lisa, Gamaliel Active [facility] (primary) Community hypertension / Hospital I10(ICD-10) Repository 04/26/2014 Active Malignant neoplasm of NA Active [place] prostate / Clinic Main C61(ICD-10) [facility] Repository 08/18/2017 Unknown E78.5 - Lisa, Gamaliel Active [facility] Hyperlipidemia, Community unspecified / Hospital E78.5(ICD-10) Repository 11/30/2015 Active Hairy cell leukemia, 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 / Clinic Main 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(ICD-10) [facility] Repository 07/17/2017 Unknown D72.810 - Gilberto Puga Active [facility] Lymphocytopenia / Community D72.810(ICD-10) Hospital Repository 07/17/2017 Unknown 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 not having Community achieved remission / Hospital C91.40(ICD-10) Repository PROCEDURES PROCEDURES No Procedure Records FoundRESULTS RESULTS ECHOCARDIOGRAM COMPLETE Observed: 05/19/2018 Status: F Source: [place] 3:53 PM [facility] REPOSITORY [facility] Cardiovascular Services [address] [place] [address] Echo Complete 05/19/18 1355 MR#: [id number] Acct: [id number] Name: NITIN KINGSLEY Rep #: [id number] : 1935 82 From: Vasquez Gonzalez MD Attending Dr: Vasquez Gonzalez MD Status: REG CLI Ordering Dr: Vasquez Gonzalez MD Date: 05/19/18 Location: [facility] Sex: M C Admitted: Reason For Study: [...] Physician: Faiza Mercado Performed By: Dedra Beckford, RDCS, RVT 05/19/18 1552 Date Vasquez Gonzalez MD CC: Vasquez Gonzalez MD; Faiza Mercado MD Date Dictated: 05/19/18 1355 Date Transcribed: 05/19/18 1552 Smelter Charger: Signed PROGRESS Observed: 05/07/2018 Status: COMPLETED Source: [place] 11:51 AM [facility] REPOSITORY O ID: [id number] Author: Gilberto Puga Service: (none) Author Type: Physician Type: Progress Notes Filed: 05/08/2018 8:55 AM Note Text: PATIENT NAME: Nitin Kingsley. CLINIC NO: [id number]. ATTENDING PHYSICIAN: Gilberto Puga MD. DATE OF [...] in complete remission since 2008. ?? Since fci, he has increased fatigue and decreased stamina. [...] Current treatment: Rituximab weekly x 4 ( 10/17/17 - 04/21/17 ) Vermurafenib 250mg once daily [...] [place] 4.20 - 6.00 m/uL 4.35 Hemoglobin, [place] 13.0 - 17.0 g/dL 13.2 Hematocrit, [facility] 39.0 - 51.0 % 40.7 MCV, [facility] 80.0 - 100.0 fL 93.6 MCH, [facility] 26.0 - 34.0 pg 30.3 MCHC, [place] 30.5 - 36.0 g/dL 32.4 RDW, [facility] 11.5 - 15.0 % 16.6 (H) Platelet Cnt, [facility] 150 - 400 k/uL 284 MPV, [place] 9.0 - 12.7 fL 9.6 Absol Gran [...] with more than 50% of the total jolu-lt-kmkd time of the visit in counseling / coordination of care. Gilberto Puga MD ? Cc: Dr. Faiza Mercado CNOVSP Observed: 05/07/2018 Status: COMPLETED Source: [place] 11:40 AM [facility] REPOSITORY Visit (SP) Office (NATI) NITIN KINGSLEY ([id number]) 1935 M Date Time Provider Department 05/07/18 11:40 AM GILBERTO PUGA During your visit today, we recorded the following information about you: Temperature Pulse Blood pressure Weight 98 degrees 70/minute 149/71 70.5 kg Gilberto Puga MD 05/07/2018 11:46 AM Signed Skin cancer screening Gilberto Puga MD 05/08/2018 8:55 AM Signed PATIENT NAME: Nitin Kingsley. CLINIC NO: [id number]. ATTENDING PHYSICIAN: Gilberto Puga MD. DATE OF [...] in complete remission since 2008. ?? Since fci, he has increased fatigue and decreased stamina. [...] [place] 4.20 - 6.00 m/uL 4.35 Hemoglobin, [facility] 13.0 - 17.0 g/dL 13.2 Hematocrit, [place] 39.0 - 51.0 % 40.7 MCV, [facility] 80.0 - 100.0 fL 93.6 MCH, [place] 26.0 - 34.0 pg 30.3 MCHC, [facility] 30.5 - 36.0 g/dL 32.4 RDW, [place] 11.5 - 15.0 % 16.6 (H) Platelet Cnt, [place] 150 - 400 k/uL 284 MPV, [place] [...] with more than 50% of the total ovda-jx-xpuf time of the visit in counseling / coordination of care. Gilberto Puga MD ? Cc: Dr. Faiza Mercado Referring Provider: GILBERTO PUGA [[id number]] Allergies As of Date: 05/07/2018 Noted Allergy [...] of Service: EST PATIENT VISIT LEVEL 4 [[id number]] Disposition: Return in about 6 months (around [...] LIVER PROFILE Collected: 05/06/2018 Status: F Source: SUSAN 3:14 PM [facility] REPOSITORY TYPE CODE TESTS [...] Performed By: #### L500.3400, L501.9310, L501.9520 #### [facility] [address] [place], [place], [id number] T4 TOTAL, THYROXIN Collected: 05/06/2018 Status: F Source: [place] 3:14 PM [facility] REPOSITORY TYPE CODE TESTS RESULT OUT OF REFERENCE UNITS RANGE LAB L501.9310 4.5-12.1 ug/dL T4 High THYROXIN 14.4 Performed By: #### L500.3400, L501.9310, L501.9520 #### [facility] [address] [place], [place], [address] THYROID STIM HORMONE Collected: 05/06/2018 Status: F Source: [place]AN (TSH) 3:14 PM [facility] REPOSITORY TYPE CODE TESTS RESULT OUT OF RANGE REFERENCE UNITS LAB L501.9520 0.358-3.74 uIU/mL High TSH 4.37 Performed By: #### L500.3400, L501.9310, L501.9520 #### [facility] [address] [place], [place], [address] CARDIOLOGY VISIT Observed: 05/06/2018 Status: F Source: [place] REPORT 2:45 PM [facility] REPOSITORY [facility] [address] [place], [place] [address] OFFICE VISIT Date of Service: 05/06/18 MR#: [id number] Acct: [id number] Name: NITIN KINGSLEY Rep #: [id number] : 1935 Provider: Vasquez Gonzalez MD Age/Sex: 82/M Location: [facility] Status: Signed HPI HPI Chief Complaint: Follow [...] 6 M FU (we r/s from 05-07) Sheepskin Pickler Required: No Accompanied by: Is patient in [...] Other Medications Discontinued: amiodarone administer consistently in fscchel499 mg (1/2 x 200 mg) PO QDAY 45 tabs 3RF to food/meals Discontinued Reason: Order Ch anged Follow Up 6 Months (it specialist) Coding Level of Care Code Off vis,est,level [...] EKG PERFORMED Observed: 05/06/2018 Status: F Source: [place] [facility] 2:19 PM [facility] REPOSITORY [facility] [address] [place] [address] 12 Lead EKG performed by [facility] 05/06/18 1418 MR#: [id number] Acct: [id number] Name: NITIN KINGSLEY Rep #: [id number] : 1935 82 From: Vasquez Gonzalez MD Attending Dr: Vasquez Gonzalez MD Status: DEP AMB Ordering Dr: Vasquez Gonzalez MD Date: 05/06/18 Location: [facility] Sex: M C Admitted: [facility]/12 Lead EKG performed by [facility] ECG Report Interpretation Sinus Rhythm WITHIN NORMAL LIMITSElectronically signed on 06/29/2018 at 16:32 by Vasquez Gonzalezwood Software Version [id number] 06/29/18 1640 Date Vasquez Gonzalez MD CC: Faiza Mercado MD Date Dictated: 05/06/18 141 Date Transcribed: 05/06/181417 Smelter Charger: CO Signed [place] ABS GR + CBC Collected: 04/30/2018 Status: F Source: [place] 2:49 PM [facility] REPOSITORY TYPE CODE TESTS RESULT OUT OF REFERENCE UNITS RANGE LAB WWBC 3.70-11.00 k/uL [facility] WBC 6.21 LAB WRBC 4.20-6.00 m/uL [facility] RBC 4.35 LAB WHGB 13.0-17.0 g/dL [facility] Hemoglobin 13.2 LAB WHCT 39.0-51.0 % [facility] Hematocrit 40.7 LAB WMCV 80.0-100.0 fL [facility] MCV 93.6 LAB WMCH 26.0-34.0 pg [facility] MCH 30.3 LAB WMCHC 30.5-36.0 g/dL [place] MCHC 32.4 LAB WRDW 11.5-15.0 % [place] High RDW 16.6 LAB WPLT 150-400 k/uL [place] Platelet Cnt 284 LAB WMPV 9.0-12.7 fL [facility] MPV 9.6 Result Comment: Test performed at: [facility], [address] [place] [address] [address] [place] [address]. LAB ABGRAN 1.45-7.50 k/uL Absol Gran 4.30 Count COMP METABOLIC PANEL Collected: 04/30/2018 Status: F Source: [place] 2:48 PM [facility] REPOSITORY TYPE CODE TESTS RESULT OUT [...] GFR. LD Collected: 04/30/2018 Status: F Source: [facility] 2:48 PM [facility] REPOSITORY TYPE CODE TESTS RESULT OUT OF RANGE REFERENCE UNITS LAB LD 135-225 U/L LD 187 PSA, DIAGNOSTIC Collected: 04/30/2018 Status: F Source: [place] 2:48 PM [facility] REPOSITORY TYPE CODE TESTS RESULT OUT OF REFERENCE UNITS RANGE LAB PSA 0.00-2.59 ng/mL PSA, Diagnostic 0.12 Result Comment: Total PSA test methodology used is the Electrochemiluminescence Immunoassay. Performed By: #### PSA #### [facility] [address] [address] CD4 ABSOLUTE COUNT Collected: 04/30/2018 Status: F Source: [place] 2:48 PM [facility] REPOSITORY TYPE CODE TESTS RESULT OUT OF [...] developed and its performance characteristics determined by [facility] [place] ([facility]). It has not been cleared or approved by the FDA. [facility] is regulated under CLIA as qualified to perform high-complexity testing. This test is used for clinical purposes. It should not be regarded as investigational or for research. Performed By: #### CD4ABS #### [facility] [address] [place], [place] [address] PSA, DIAGNOSTIC Collected: 03/18/2018 Status: F Source: [place] 3:01 PM [facility] REPOSITORY TYPE CODE TESTS RESULT OUT OF REFERENCE UNITS RANGE LAB PSA 0.00-2.59 ng/mL PSA, Diagnostic 0.10 Result Comment: Total PSA test methodology used is the Electrochemiluminescence Immunoassay. Performed By: #### PSA #### [address] [place], [place] [address] CNOV Observed: 03/18/2018 Status: COMPLETED Source: [place] 3:00 PM [facility] REPOSITORY Office Visit (RADTWS) NITIN KINGSLEY ([id number]) 1935 M Date Time Provider Department 03/18/18 3:00 PM CA OROZCO RADTWS During your visit today, we recorded the following information about you: Temperature Pulse Respiration Blood pressure 96.8 degrees 74/minute 20/minute 155/70 Weight 70.3 kg Zully Jones RN, RN 03/18/2018 2:47 PM Signed Radiation Therapy - Nursing Note (Follow-up) PATIENT NAME: Nitin Kingsley PATIENT March 18, 2018 [facility] FACILITY/LOCATION: [facility] Reason for visit: Follow up. Subjective Data No c/o Additional Data Do you want to see a Pneumatic System Conveyor Operator? No Nursing Assessment Fatigue: none Appetite: [...] Nitin Kingsley PATIENT DIAGNOSIS: Prostate adenocarcinoma with [place] score 6(3+3), PSA 9.19 and clinical stage [...] MD cc: Faiza Mercado DO [address] [place] [address] Referring Provider: FAIZA MERCADO [[id number]] Allergies As of Date: 03/18/2018 Noted Allergy Reaction CIPRO (CIPROFLOXACIN) 09/26/2005 7 - Swelling 10 - Anaphylaxis ALLOPURINOL SODIUM 09/26/2005 2 - Rash BACTRIM (SULFAMETHOXAZOLE-TRIMETH*09/26/2005 2 - Rash IODINE (CONTRAST DYE) 09/26/2005 2 - Rash Comments: not a problem topically RITUXAN (RITUXIMAB) 03/24/2017 14 - Other: See Comments Comments: See nursing notes 03/24/18. Date Reviewed: 03/18/2018 Reviewed by: Zully HowardRn) LESLIE Jones - Fully Assessed Reason for Visit: Recheck [92] Primary Visit Diagnosis:Prostate cancer (HCC) [C61] Order(s):PSA/PROSTSPECAG DIAG [SQPSA] Order #: [id number] FUTURE Prescriptions as of 03/18/2018 Sig: VEMURAFENIB [...] [D70.1, *INVALID FOR* Visit Notes: >> Zully (Rn) LESLIE Jones Amna Mar 18, 2018 2:44 PM Status: Signed Radiation Therapy - Nursing Note (Follow-up) PATIENT NAME: Nitin Kingsley PATIENT March 18, 2018 [facility] FACILITY/LOCATION: [facility] Reason for visit: Follow up. Subjective Data No c/o Additional Data Do you want to see a Pneumatic System Conveyor Operator? No Nursing Assessment Fatigue: none Appetite: [...] 03/23/18 PROGRESS Observed: 03/18/2018 Status: COMPLETED Source: [place] 2:49 PM [facility] REPOSITORY HNO ID: [id number] Author: Ca Orozco Service: (none) Author Type: [...] MD cc: Faiza Mercado DO [address] [place] [address] PROGRESS Observed: 02/05/2018 Status: COMPLETED Source: [place] 4:06 PM [facility] REPOSITORY O ID: [id number] Author: Gilberto Puga Service: (none) Author Type: Physician Type: Progress Notes Filed: 02/06/2018 7:42 AM Note Text: PATIENT NAME: Nitin Kingsley. CLINIC NO: [id number]. ATTENDING PHYSICIAN: Gilberto Puga MD. DATE OF [...] in complete remission since 2008. ?? Since fci, he has increased fatigue and decreased stamina. [...] [place] 3.70 - 11.00 k/uL 4.93 RBC, [place] 4.20 - 6.00 m/uL 4.19 (L) Hemoglobin, [place] 13.0 - 17.0 g/dL 12.8 (L) Hematocrit, [facility] 39.0 - 51.0 % 39.3 MCV, [facility] 80.0 - 100.0 fL 93.8 MCH, [facility] 26.0 - 34.0 pg 30.5 MCHC, [facility] 30.5 - 36.0 g/dL 32.6 RDW, [place] 11.5 - 15.0 % 15.0 Platelet Cnt, [place] 150 - 400 k/uL 262 MPV, [facility] 9.0 - 12.7 fL 9.7 [...] with dermatology for skin cancer - start Weqqoz101pd once daily for iron deficiency anemia. - repeat CBC, CMP, LDH AND?CD4 counts OV in 3 months - monitor blood pressure at home and follow up with PCP. ? Gilberto Puga MD ? Cc: Dr. Faiza Mercado CNOVSP Observed: 02/05/2018 Status: COMPLETED Source: [place] 2:30 PM [facility] REPOSITORY Visit (SP) Office (NATI) LALITANITIN Beyer ([id number]) 1935 M Date Time Provider Department 02/05/18 [...] Signed PATIENT NAME: Nitin Kingsley. CLINIC NO: [id number]. ATTENDING PHYSICIAN: Gilberto Puga MD. DATE OF [...] in complete remission since 2008. ?? Since fci, he has increased fatigue and decreased stamina. [...] Latest Ref Rng AND Units 01/28/2018 WBC, [place] 3.70 - 11.00 k/uL 4.93 RBC, [place] 4.20 - 6.00 m/uL 4.19 (L) Hemoglobin, [facility] 13.0 - 17.0 g/dL 12.8 (L) Hematocrit, [facility] 39.0 - 51.0 % 39.3 MCV, [place] 80.0 - 100.0 fL 93.8 MCH, [place] 26.0 - 34.0 pg 30.5 MCHC, [place] 30.5 - 36.0 g/dL 32.6 RDW, [facility] 11.5 - 15.0 % 15.0 Platelet Cnt, [facility] 150 - 400 k/uL 262 MPV, [facility] 9.0 - 12.7 fL 9.7 [...] with dermatology for skin cancer - start [id number] once daily for iron deficiency anemia. - repeat CBC, CMP, LDH AND?CD4 counts OV in 3 months - monitor blood pressure at home and follow up with PCP. ? Gilberto Puga MD ? Cc: Dr. Faiza Mercado Referring Provider: GILBERTO PUGA [[id number]] Allergies As of Date: 02/05/2018 Noted Allergy [...] daily.Disp: 100 capsuleRfl: 1 CD4 ABSOLUTE COUNT [[id number]] Order #: [id number] FUTURE Level of Service: EST PATIENT VISIT LEVEL 3 [[id number]] Disposition: Return in about 3 months (around [...] Status:Closed by GILBERTO PUGA MD on 02/06/18 [place] ABS GR + CBC Collected: 01/28/2018 Status: F Source: [place] 4:05 PM [facility] REPOSITORY TYPE CODE TESTS RESULT OUT OF REFERENCE UNITS RANGE LAB WWBC 3.70-11.00 k/uL [place] WBC 4.93 LAB WRBC 4.20-6.00 m/uL Low [place] RBC 4.19 LAB WHGB 13.0-17.0 g/dL Low [place] Hemoglobin 12.8 LAB WHCT 39.0-51.0 % [place] Hematocrit 39.3 LAB WMCV 80.0-100.0 fL [place] MCV 93.8 LAB WMCH 26.0-34.0 pg [place] MCH 30.5 LAB WMCHC 30.5-36.0 g/dL [place] MCHC 32.6 LAB WRDW 11.5-15.0 % [place] RDW 15.0 LAB WPLT 150-400 k/uL [place] Platelet Cnt 262 LAB WMPV 9.0-12.7 fL [place] MPV 9.7 Result Comment: Test performed at: [facility] [place], [address] [place] [address]. LAB ABGRAN 1.45-7.50 k/uL Absol Gran 3.20 Count IRON AND TIBC Collected: 01/28/2018 Status: F Source: [place] 4:05 PM [facility] REPOSITORY TYPE CODE TESTS RESULT OUT OF REFERENCE UNITS RANGE LAB IRN 41-186 ug/dL Low Iron 38 LAB TIBC 232-386 ug/dL TIBC 352 LAB SAT 15-57 % Low Transferrin Saturatn 11 Performed By: #### IRON, CMP, LD6, FERR #### [facility] [address] [place], [place] [address] COMP METABOLIC PANEL Collected: 01/28/2018 Status: F Source: [place] 4:05 PM [facility] REPOSITORY TYPE CODE TESTS RESULT OUT OF REFERENCE UNITS RANGE LAB TP 6.3-8.0 g/dL Protein, Total 6.3 LAB ALB 3.9-4.9 g/dL Albumin 4.0 LAB CA 8.5-10.2 mg/dL Calcium, Total 9.2 LAB TBIL 0.2-1.3 mg/dL Bilirubin, Total 0.4 LAB ALKP 36-108 U/L Alkaline Phosphatase 82 LAB AST 14-40 U/L AST 19 LAB GLU 74-99 mg/dL Glucose 92 Result Comment: The [place] [employer] (ADA) provides guidance for cutoff [...] Standards of Medical Care in Diabetes 2016, [place] [employer]. Diabetes Care. 2016.39(Suppl 1). LAB [...] By: #### IRON, CMP, LD6, FERR #### [facility] [address] [place], [place] [address] LD Collected: 01/28/2018 Status: F Source: [facility] 4:05 PM [facility] REPOSITORY TYPE CODE TESTS RESULT OUT OF RANGE REFERENCE UNITS LAB LD 135-225 U/L LD 157 Performed By: #### IRON, CMP, LD6, FERR #### [facility] [address] [address] FERRITIN Collected: 01/28/2018 Status: F Source: [place] 4:05 PM [facility] REPOSITORY TYPE CODE TESTS RESULT OUT OF REFERENCE UNITS RANGE LAB FERR 30.3-565.7 ng/mL Ferritin 36.3 Performed By: #### IRON, CMP, LD6, FERR #### [facility] [address] [place], [place] [id number] CARDIOLOGY VISIT Observed: 11/19/2017 Status: F Source: [place] REPORT 10:17 AM [facility] REPOSITORY [facility] [address] [place] [address] OFFICE VISIT Date of Service: 11/04/17 MR#: [id number] Acct: [id number] Name: NITIN KINGSLEY Rep #: [id number] : 1935 Provider: Diana Benton Age/Sex: 81/M Location: [facility] Status: Signed HPI HPI Details: NITIN KINGSLEY, [...] Pressure 128/70 Intake Visit Reasons: 6 M Sheepskin Pickler Required: No Accompanied by: friend Is patient [...] (Please see if TSh was done at [facility], if it was then he does not need to have labs done today. 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 with CLIENT SERVICES COORDINATOR) Coding Level of Care Code Off vis,est,level 3 Diagnoses Paroxysmal atrial fibrillation I48.0 Essential hypertension I10 Hypertension type: essential hypertension Coding Level of Care Code Off vis,est,level 3 Diagnoses Paroxysmal atrial fibrillation I48.0 Essential hypertension I10 Hypertension type: essential hypertension 11/19/17 1010 <Electronically signed by Diana CHONG> Date Diana CHONG 11/19/17 1017<Electronically signed by Vasquez Gonzalez MD> Cosigner Signature: Date (if applicable) Vasquez Gonzalez MD CC: Faiza Mercado MD PROGRESS Observed: 11/05/2017 Status: COMPLETED Source: [place] 4:14 PM [facility] REPOSITORY O ID: [id number] Author: Gilberto Puga Service: (none) Author Type: Physician Type: Progress Notes Filed: 11/06/2017 8:25 AM Note Text: PATIENT NAME: Nitin Kingsley. CLINIC NO: [id number]. ATTENDING PHYSICIAN: Gilberto Puga MD. DATE OF [...] in complete remission since 2008. ?? Since fci, he has increased fatigue and decreased stamina. [...] Latest Ref Rng AND Units 10/29/2017 WBC, [place] 3.70 - 11.00 k/uL 5.90 RBC, [place] 4.20 - 6.00 m/uL 3.84 (L) Hemoglobin, [place] 13.0 - 17.0 g/dL 12.2 (L) Hematocrit, [place] 39.0 - 51.0 % 37.0 (L) MCV, [place] 80.0 - 100.0 fL 96.4 MCH, [place] 26.0 - 34.0 pg 31.8 MCHC, [place] 30.5 - 36.0 g/dL 33.0 RDW, [facility] 11.5 - 15.0 % 16.2 (H) Platelet Cnt, [facility] 150 - 400 k/uL 259 MPV, [place] 9.0 - 12.7 fL 10.0 Absol Gran [...] Mercado CNOVSP Observed: 11/05/2017 Status: COMPLETED Source: [place] 4:00 PM [facility] REPOSITORY Visit (SP) Office (HEMAWS) NITIN KINGSLEY ([id number]) 1935 M Date Time Provider Department 11/05/17 4:00 PM GILBERTO PUGA During your visit today, we recorded the following information about you: Temperature Pulse Blood pressure Weight 98.3 degrees 64/minute 159/72 73 kg Vy Silverman LPN, LPN 11/05/2017 4:04 PM Signed Est pt. Discuss recent lab results JUAN DAVID Camejo MD 11/05/2017 4:12 PM Signed See Dip Tube Assembler Machine for skin cancer screening Gilberto Puga MD 11/06/2017 8:25 AM Signed PATIENT NAME: Nitin Kingsley. CLINIC NO: [id number]. ATTENDING PHYSICIAN: Gilberto Puga MD. DATE OF [...] in complete remission since 2008. ?? Since fci, he has increased fatigue and decreased stamina. [...] Latest Ref Rng AND Units 10/29/2017 WBC, [place] 3.70 - 11.00 k/uL 5.90 RBC, [place] 4.20 - 6.00 m/uL 3.84 (L) Hemoglobin, [place] 13.0 - 17.0 g/dL 12.2 (L) Hematocrit, [place] 39.0 - 51.0 % 37.0 (L) MCV, [place] 80.0 - 100.0 fL 96.4 MCH, [place] 26.0 - 34.0 pg 31.8 MCHC, [place] 30.5 - 36.0 g/dL 33.0 RDW, [place] 11.5 - 15.0 % 16.2 (H) Platelet Cnt, [place] 150 - 400 k/uL 259 MPV, [place] 9.0 - 12.7 fL 10.0 Absol Gran [...] Dr. Faiza Mercado Referring Provider: GILBERTO PUGA [[id number]] Allergies As of Date: 11/05/2017 Noted Allergy [...] of Service: EST PATIENT VISIT LEVEL 3 [13004] Disposition: Return in about 3 months (around [...] FOR* Other instructions from your clinician: See Dip Tube Assembler Machine for skin cancer screening Visit Notes: >> Vy Silverman LPN Amna November 05, 2017 3:58 PM Status: Signed Est pt. Discuss recent lab results Vy Silverman LPN Encounter Status:Closed by GILBERTO PUGA MD on 11/06/17 T4 TOTAL, THYROXIN Collected: 11/05/2017 Status: F Source: [place] 3:29 PM [facility] REPOSITORY TYPE CODE TESTS RESULT OUT OF REFERENCE UNITS RANGE LAB L501.9310 4.5-12.1 ug/dL T4 High THYROXIN 14.4 Performed By: #### L501.9310, L501.9520 #### [facility] [address] [place], [address] THYROID STIM HORMONE Collected: 11/05/2017 Status: F Source: [place] (TSH) 3:29 PM [facility] REPOSITORY TYPE CODE TESTS RESULT OUT OF RANGE REFERENCE UNITS LAB L501.9520 0.358-3.74 uIU/mL High TSH 4.34 Performed By: #### L501.9310, L501.9520 #### [facility] [address] [place], [address] 12 LEAD EKG PERFORMED Observed: 11/04/2017 Status: F Source: [place] BY [facility] 3:06 PM [facility] REPOSITORY [facility] [address] [place] [address] 12 Lead EKG performed by [facility] 11/04/17 1505 MR#: [id number] Acct: [id number] Name: NITIN KINGSLEY Rep #: [id number] : 1935 81 From: Diana CHONG Attending Dr: Diana Benton Status: DEP AMB Ordering Dr: Diana Benton Date: 11/04/17 Location: [facility] Sex: M C Admitted: BMS/12 Lead EKG performed by [facility] ECG Report Interpretation Sinus Rhythm WITHIN NORMAL LIMITSElectronically signed on 11/30/2017 at 17:29 by Vasquez Gonzalez 11/30/17 1730 Date Diana CHONG CC: Faiza Mercado MD Date Dictated: 11/04/17 1505 Date Transcribed: 11/04/17 1505 Smelter Charger: KAVIN Signed CD4 ABSOLUTE COUNT Collected: 10/29/2017 Status: F Source: [place] 4:01 PM [facility] REPOSITORY TYPE CODE TESTS RESULT OUT [...] developed and its performance characteristics determined by [facility]'s [facility] [place] ([facility] It has not been cleared or approved by the FDA. [facility] is regulated under CLIA as qualified to perform high-complexity testing. This test is used for clinical purposes. It should not be regarded as investigational or for research. Performed By: #### CD4ABS #### [facility] [address] [place], [place] [address] SUSAN ABS GR + CBC Collected: 10/29/2017 Status: F Source: [place] 4:00 PM [facility] REPOSITORY TYPE CODE TESTS RESULT OUT OF REFERENCE UNITS RANGE LAB WWBC 3.70-11.00 k/uL [place] WBC 5.90 LAB WRBC 4.20-6.00 m/uL Low [place] RBC 3.84 LAB WHGB 13.0-17.0 g/dL Low [place] Hemoglobin 12.2 LAB WHCT 39.0-51.0 % Low [place] Hematocrit 37.0 LAB WMCV 80.0-100.0 fL [place] MCV 96.4 LAB WMCH 26.0-34.0 pg [place] MCH 31.8 LAB WMCHC 30.5-36.0 g/dL [place] MCHC 33.0 LAB WRDW 11.5-15.0 % [place] High RDW 16.2 LAB WPLT 150-400 k/uL [place] Platelet Cnt 259 LAB WMPV 9.0-12.7 fL [place] MPV 10.0 Result Comment: Test performed at: [facility] [place], [address] [place], [place] [address]. LAB ABGRAN 1.45-7.50 k/uL Absol Gran 4.27 Count COMP METABOLIC PANEL Collected: 10/29/2017 Status: F Source: [place] 4:00 PM [facility] REPOSITORY TYPE CODE TESTS RESULT OUT OF REFERENCE UNITS RANGE LAB TP 6.3-8.0 g/dL Protein, Total 6.5 LAB ALB 3.9-4.9 g/dL Albumin 4.0 LAB CA 8.5-10.2 mg/dL Calcium, Total 8.9 LAB TBIL 0.2-1.3 mg/dL Bilirubin, Total 0.5 LAB ALKP 36-108 U/L Alkaline Phosphatase 82 LAB AST 14-40 U/L AST 14 LAB GLU 74-99 mg/dL Glucose High 133 Result Comment: The [place] Diabetes Association (ADA) provides guidance for cutoff [...] Standards of Medical Care in Diabetes 2016, [place] [employer] Association. Diabetes Care. 2016.39(Suppl 1). LAB [...] GFR. Performed By: #### CMP, LD6 #### [facility] [address] [place], [place] [address] LD Collected: 10/29/2017 Status: F Source: [facility] 4:00 PM [facility] REPOSITORY TYPE CODE TESTS RESULT OUT OF RANGE REFERENCE UNITS LAB LD 135-225 U/L LD 172 Performed By: #### CMP, LD6 #### [facility] [address] [place], [place] [address] CNCO Observed: 09/03/2017 Status: COMPLETED Source: [place] 12:00 AM [facility] REPOSITORY Letter Text [address] [place] [address] [phone] 09/03/2017 Nitin [place] [address] [place] [address] Dear Adolfo Kingsley: Due to a change in the provider's schedule, it has been necessary to reschedule your appointment. Enclosed please find a new appointment reminder that will replace the one previously sent to you. If this appointment is not convenient for you, please contact our office at [phone]. Thank you for choosing the [facility] as your Healthcare Provider. Sincerely, Appointment Office CNOVSP Observed: 08/28/2017 Status: COMPLETED Source: [place] 2:10 PM [facility] REPOSITORY Visit (SP) Office (NATI) NITIN KINGSLEY ([id number]) 1935 M Date Time Provider Department 08/28/17 2:10 PM GILBERTO PUGA During your visit today, we recorded the following information about you: Temperature Pulse Blood pressure Weight 97.7 degrees 68/minute 142/70 73 kg Gilberto Puga MD 08/29/2017 8:19 AM Signed PATIENT NAME: Nitin Kingsley. CLINIC NO: [id number]. ATTENDING PHYSICIAN: Gilberto Puga MD. DATE OF [...] in complete remission since 2008. ?? Since fci, he has increased fatigue and decreased stamina. [...] ANDgt;60 eGFR-All Other Races . 55 WBC, [place] 3.70 - 11.00 k/uL 6.60 RBC, [place] 4.20 - 6.00 m/uL 3.79 (L) Hemoglobin, [place] 13.0 - 17.0 g/dL 12.4 (L) Hematocrit, [place] 39.0 - 51.0 % 37.7 (L) MCV, [place] 80.0 - 100.0 fL 99.5 MCH, [place] 26.0 - 34.0 pg 32.7 MCHC, [place] 30.5 - 36.0 g/dL 32.9 RDW, [place] [...] Dr. 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 REPOSITORY HNO ID: [id number] Author: Gilberto Puga Service: (none) Author Type: Physician Type: Progress Notes Filed: 08/29/2017 8:19 AM Note Text: PATIENT NAME: Nitin Kingsley. CLINIC NO: [id number]. ATTENDING PHYSICIAN: Gilberto Puga MD. DATE OF [...] in complete remission since 2008. ?? Since fci, he has increased fatigue and decreased stamina. [...] >60 eGFR-All Other Races . 55 WBC, [place] 3.70 - 11.00 k/uL 6.60 RBC, [place] 4.20 - 6.00 m/uL 3.79 (L) Hemoglobin, [place] 13.0 - 17.0 g/dL 12.4 (L) Hematocrit, [place] 39.0 - 51.0 % 37.7 (L) MCV, [place] 80.0 - 100.0 fL 99.5 MCH, [place] 26.0 - 34.0 pg 32.7 MCHC, [place] 30.5 - 36.0 g/dL 32.9 RDW, [place] 11.5 - 15.0 % 15.6 (H) Platelet Cnt, [place] 150 - 400 k/uL 280 MPV, [place] 9.0 - 12.7 fL 9.7 Absol Gran [...] Gilberto Puga MD ? Cc: Dr. Faiza DAVIS ABS GR + CBC Collected: 08/21/2017 Status: F Source: [place] 2:55 PM [facility] REPOSITORY TYPE CODE TESTS RESULT OUT OF REFERENCE UNITS RANGE LAB WWBC 3.70-11.00 k/uL [place] WBC 6.60 LAB WRBC 4.20-6.00 m/uL Low [place] RBC 3.79 LAB WHGB 13.0-17.0 g/dL Low [place] Hemoglobin 12.4 LAB WHCT 39.0-51.0 % Low [place] Hematocrit 37.7 LAB WMCV 80.0-100.0 fL [place] MCV 99.5 LAB WMCH 26.0-34.0 pg [place] MCH 32.7 LAB WMCHC 30.5-36.0 g/dL [place] MCHC 32.9 LAB WRDW 11.5-15.0 % [place] High RDW 15.6 LAB WPLT 150-400 k/uL [place] Platelet Cnt 280 LAB WMPV 9.0-12.7 fL [place] MPV 9.7 Result Comment: Test performed at: [facility] [place] [address] [place], [place] [address]n Rd[address] [place] [address]. LAB ABGRAN 1.45-7.50 k/uL Absol Gran 4.66 Count RETICULOCYTE Collected: 08/21/2017 Status: F Source: [place] 2:55 PM [facility] REPOSITORY TYPE CODE TESTS RESULT OUT OF REFERENCE UNITS RANGE LAB RETC 0.4-2.0 % Retic% 1.5 LAB ABRET 0.0180-0.1000 M/uL Abs Retic 0.057 Performed By: #### RETIC, CMP, SERIMM #### [facility] [address] [place], [place] [address] COMP METABOLIC PANEL Collected: 08/21/2017 Status: F Source: [place] 2:55 PM [facility] REPOSITORY TYPE CODE TESTS RESULT OUT OF REFERENCE UNITS RANGE LAB TP 6.3-8.0 g/dL Protein, Total 6.5 LAB ALB 3.9-4.9 g/dL Albumin 4.0 LAB CA 8.5-10.2 mg/dL Calcium, Total 9.3 LAB TBIL 0.2-1.3 mg/dL Bilirubin, Total 0.4 LAB ALKP 36-108 U/L Alkaline Phosphatase 83 LAB AST 14-40 U/L AST 20 LAB GLU 74-99 mg/dL Glucose 89 Result Comment: The [place] Diabetes Association (ADA) provides guidance for cutoff [...] Standards of Medical Care in Diabetes 2016, [place] Diabetes Association. Diabetes Care. 2016.39(Suppl 1). LAB [...] accurately reflect actual GFR. Performed By: #### AGUSTO MARS, SERIMM #### [facility] [address] [place] [address] IMMUNOGLOBULINS PHAN Collected: 08/21/2017 Status: F Source: [place] 2:55 PM [facility] REPOSITORY TYPE CODE TESTS RESULT OUT OF RANGE REFERENCE UNITS LAB IGG 717-1411 mg/dL Low IgG 559 LAB IGA 78-391 mg/dL IgA 128 LAB IGM 53-334 mg/dL Low IgM 33 Performed By: #### RETIC CMP, SERIMM #### [facility] [address] [place] [address] CD4 ABSOLUTE COUNT Collected: 08/21/2017 Status: F Source: [place] 2:55 [facility] REPOSITORY TYPE CODE TESTS RESULT [...] developed and its performance characteristics determined by [facility]'s [facility] [place] ([facility]). It has not been cleared or approved by the FDA. -[facility] is regulated under CLIA as qualified to perform high-complexity testing. This test is used for clinical purposes. It should not be regarded as investigational or for research. Performed By: #### CD4ABS #### [facility] [address] [place], [place] [address] LIVER PROFILE Collected: 08/18/2017 Status: F Source: [place] 10:40 AM [facility] REPOSITORY Order Comment: Order Date: 02/20/17 Order Info: [id number] - *Hepatic Function Panel Order Info: [id number] - *Lipid Profile CC PCP Comments: 12 [...] BILI 0.18 Performed By: #### L500.3400 #### [facility] [address] [place], [place], [address] LIPID PROFILE Collected: 08/18/2017 Status: F Source: [place] 10:40 AM [facility] REPOSITORY Order Comment: Order Date: 02/20/17 Order Info: [id number] - *Hepatic Function Panel Order Info: [id number] - *Lipid Profile CC PCP Comments: 12 [...] VLDL 14 Performed By: #### L500.4100 #### [facility] [address] [place] [place], [address] [place] ABS GR + CBC Collected: 07/31/2017 Status: F Source: [place] 1:37 PM [facility] REPOSITORY TYPE CODE TESTS RESULT OUT OF REFERENCE UNITS RANGE LAB WWBC 3.70-11.00 k/uL [place] WBC 6.91 LAB WRBC 4.20-6.00 m/uL Low [place] RBC 3.63 LAB WHGB 13.0-17.0 g/dL Low [place] Hemoglobin 11.9 LAB WHCT 39.0-51.0 % Low [place] Hematocrit 36.6 LAB WMCV 80.0-100.0 fL [place] High MCV 100.8 LAB WMCH 26.0-34.0 pg [place] MCH 32.8 LAB WMCHC 30.5-36.0 g/dL [place] MCHC 32.5 LAB WRDW 11.5-15.0 % [place] High RDW 15.1 LAB WPLT 150-400 k/uL [place] Platelet Cnt 310 LAB WMPV 9.0-12.7 fL [place] MPV 9.9 Result Comment: Test performed at: [facility], [address] [place] [address] Rd[address] [place] [address]. LAB ABGRAN 1.45-7.50 k/uL Absol Gran 5.13 Count COMP METABOLIC PANEL Collected: 07/31/2017 Status: F Source: [place] 1:37 PM [facility] REPOSITORY TYPE CODE TESTS RESULT OUT OF REFERENCE UNITS RANGE LAB TP 6.3-8.0 g/dL Protein, Total 6.5 LAB ALB 3.9-4.9 g/dL Low Albumin 3.8 LAB CA 8.5-10.2 mg/dL Calcium, Total 9.0 LAB TBIL 0.2-1.3 mg/dL Bilirubin, Total 0.3 LAB ALKP 36-108 U/L Alkaline Phosphatase 88 LAB AST 14-40 U/L Low AST 12 LAB GLU 74-99 mg/dL Glucose 97 Result Comment: The [place] Diabetes Association (ADA) provides guidance for cutoff [...] Standards of Medical Care in Diabetes 2016, [place] Diabetes Association. Diabetes Care. 2016.39(Suppl 1). LAB [...] actual GFR. Performed By: #### CMP #### [facility] [address] [place], [place] [address] CD4 ABSOLUTE COUNT Collected: 07/31/2017 Status: F Source: [place] 1:37 PM [facility] REPOSITORY TYPE CODE TESTS RESULT OUT [...] developed and its performance characteristics determined by [facility]'s [facility] [place] ([facility]). It has not been cleared or approved by the FDA. [facility] is regulated under CLIA as qualified to perform high-complexity testing. This test is used for clinical purposes. It should not be regarded as investigational or for research. Performed By: #### CD4ABS #### [facility] [address] [place], [place] [address] PROGRESS Observed: 07/03/2017 Status: COMPLETED Source: [place] 1:38 PM [facility] REPOSITORY HNO ID: [id number] Author: Gilberto Puga Service: (none) Author Type: Physician Type: Progress Notes Filed: 07/06/2017 7:44 AM Note Text: PATIENT NAME: Nitin Kings[place]. CLINIC NO: [id number]. ATTENDING PHYSICIAN: Gilberto Puga MD. DATE OF [...] in complete remission since 2008. ?? Since fci, he has increased fatigue and decreased stamina. [...] Latest Ref Rng AND Units 06/26/2017 WBC, [place] 3.70 - 11.00 k/uL 5.70 RBC, [place] 4.20 - 6.00 m/uL 3.46 (L) Hemoglobin, [place] 13.0 - 17.0 g/dL 11.7 (L) Hematocrit, [place] 39.0 - 51.0 % 36.2 (L) MCV, [place] 80.0 - 100.0 fL 104.6 (H) MCH, [place] 26.0 - 34.0 pg 33.8 MCHC, [place] 30.5 - 36.0 g/dL 32.3 RDW, [place] 11.5 - 15.0 % 16.7 (H) Platelet Cnt, [place] 150 - 400 k/uL 303 MPV, [place] 9.0 - 12.7 fL 9.2 Absol Gran [...] Mercado CNOVSP Observed: 07/03/2017 Status: COMPLETED Source: [place] 1:30 PM [facility] REPOSITORY Visit (SP) Office (HEMAWS) NITIN KINGSLEY ([id number]) 1935 M Date Time Provider Department 07/03/17 1:30 PM GILBERTO PUGA During your visit today, we recorded the following information about you: Temperature Pulse Blood pressure Weight 97.7 degrees 71/minute 149/67 72.3 kg Gilberto Puga MD 07/06/2017 7:44 AM Signed PATIENT NAME: Nitin [place]. CLINIC NO: [id number]. ATTENDING PHYSICIAN: Gilberto Puga MD. DATE OF [...] in complete remission since 2008. ?? Since fci, he has increased fatigue and decreased stamina. [...] Latest Ref Rng ANDamp; Units 06/26/2017 WBC, [place] 3.70 - 11.00 k/uL 5.70 RBC, [place] 4.20 - 6.00 m/uL 3.46 (L) Hemoglobin, [place] 13.0 - 17.0 g/dL 11.7 (L) Hematocrit, [place] 39.0 - 51.0 % 36.2 (L) MCV, [place] 80.0 - 100.0 fL 104.6 (H) MCH, [place] 26.0 - 34.0 pg 33.8 MCHC, [place] 30.5 - 36.0 g/dL 32.3 RDW, [place] 11.5 - 15.0 % 16.7 (H) Platelet Cnt, [place] 150 - 400 k/uL 303 MPV, [place] 9.0 - 12.7 fL 9.2 Absol Gran [...] Dr. Faiza Mercado Referring Provider: GILBERTO PUGA [[id number]] Allergies As of Date: 07/03/2017 Noted Allergy [...] of Service: EST PATIENT VISIT LEVEL 3 [21253] Disposition: Return in about 8 weeks (around [...] Status:Closed by GILBERTO PUGA MD on 07/06/17 ALLERGIES ALLERGIES DATE TYPE / CODE NAME / CODE REACTION SEVERITY SOURCE Drug ciprofloxacin Unknown Unknown [place] 8 Allergy/424608053( HCl/B469716924(RXN Community SNOMED CT) ORM) Hospital Repository Drug iodine/B234880606( Unknown Unknown [place] 8 Allergy/067351655( RXNORM) Community SNOMED CT) Hospital Repository Drug allopurinol/A09965 Swelling Unknown [place] 8 Allergy/083832227( 1084(RXNORM) Community SNOMED CT) Hospital Repository Drug sulfamethoxazole/F Unknown Unknown [place] 8 Allergy/700611817( 556448718(RXNORM) Community SNOMED CT) Hospital Repository Drug trimethoprim/F0060 Unknown Unknown [place] 8 Allergy/106181470( 69574(RXNORM) Community SNOMED CT) Hospital Repository Drug ciprofloxacin/F006 Unknown Unknown [place] 8 Allergy/841808057( 484878(RXNORM) Community SNOMED CT) Hospital Repository DRUG RITUXIMAB OTHER: SEE C [facility] 7 INGREDI/252647689( [facility] Main SNOMED CT) [place] Repository DRUG CIPROFLOXACIN SWELLING [facility] 6 INGREDI/867426841( [facility] Main SNOMED CT) [place] Repository DRUG ALLOPURINOL SODIUM RASH [facility] 6 INGREDI/143601827( Clinic Main SNOMED CT) [place] Repository DRUG/741162874(SNO SULFAMETHOXAZOLE-T RASH [facility] [address]) RIMETHOPRIM Clinic Main [place] Repository DRUG CONTRAST DYE RASH [facility] 6 INGREDI/214251218( Clinic Main SNOMED CT) [place] Repository Miscellaneous allopurinol [id number] [facility]/719888219( [facility] SN[facility] Repository Miscellaneous iodine [facility] Allergy/860238973( [facility] SNOM[facility]) [facility] Repository Drug/841623625(SNO Bactrim 927407317 [facility] Drug/117970938(SNO Cipro [facility] Repository ENCOUNTERS ENCOUNTERS ADMIT/DISCHARGE ACCOUNT ADMITTING ENCOUNTER LOCATION SOURCE NUMBER CLASS 05/19/2018 [id number] Ambulatory BMSBuilding:Jenna Davis MS.[facility] Repository 05/19/2018 [id number] Ambulatory BMSBuilding:Jenna Davis MS.CF.[facility] Repository 05/19/2018 [id number] Ambulatory [facility] ing:CVS Repository 05/07/2018/05/10/20 [id number] Ambulatory [address] Repository 05/06/2018 [id number] [facility] ing:LAB Repository 05/06/2018/05/06/20 [id number] Ambulatory BMSBuilding:Jenna Davis 20 MS.[facility] Repository 04/30/2018/04/30/20 [id number] Ambulatory [address] Repository 03/18/2018/03/18/20 [id number] Ambulatory [address] Repository 03/18/2018/03/23/20 [id number] Ambulatory [address] Repository 02/05/2018/02/10/20 [id number] Ambulatory [address] Repository 01/28/2018/01/30/20 [id number] Ambulatory [address] Repository 12/17/2017/12/18/19 [id number] Zari, [place] [facility] [address] [place] [address] ing:CD:[id number] [facility] 7151Room: Repository CD:[id number] 11/25/2017 [id number] [facility] ing:PSN Repository 11/05/2017/11/07/19 [id number] Ambulatory [address] Repository 11/05/2017 [id number] [facility] ing:LAB Repository 11/04/2017/11/05/19 [id number] Ambulatory BMSBuilding:B [place] 18 MS.[facility] Repository 11/03/2017 [id number] Ambulatory [facility] Repository 10/29/2017/10/31/19 [id number] Ambulatory [address] Repository 10/16/2017 [id number] Ambulatory BMSBuilding:B [place] MS.[facility] Repository 10/02/2017 [id number] [facility]ulatory [facility] ing:PSN Repository 09/29/2017 [id number] Ambulatory [facility] Repository 09/23/2017 [id number] Ambulatory BMSBuilding:B [place] MS.[facility] Repository 09/01/2017 [id number] [facility]ulatory [facility] ing:PSN Repository 08/28/2017/09/01/19 [id number] Ambulatory [address] Repository 08/21/2017/08/22/19 [id number] Ambulatory [address] Repository 08/18/2017 [id number] [facility] ing:LAB Repository 07/31/2017 [id number] Ambulatory [facility] Repository 07/31/2017/07/31/19 [id number] Ambulatory [address] Repository 07/23/2017 [id number] [facility]ulatory [facility] ing:PSN Repository 07/03/2017/07/08/19 [id number] Ambulatory [address] Repository PAYERS PAYERS ENCOUNTER GUARANTOR PAYER SUBSCRIBER SOURCE 05/19/2018 NITIN GOMEZROE Insurance:MEDICARE KELBY: [facility], PART A [facility] [id number] [address]Wur: Number: Repository [id number] (HP) Date:2018-05-19 05/19/2018 Secondary NITIN Davis Insurance:AARPPolicy BASSEMDOB: Community Number: [id number] Hospital [id number] Repository Date:3592-40-38LV [facility] [address], [place] [address]UL: 05/19/2018 Tertiary NOT GIVENUNK [place] Insurance:SELF PAY [facility] Number: Effective Repository Date:2018-05-19 05/19/2018 NITIN L Primary NITIN Davis [id number] [place] Insurance:[facility]ICARE [facility] [id number] [address]Wsq: Number: Repository [id number] (HP) Date:2018-05-06 05/19/2018 Secondary NITIN Beyer [place] Insurance:AARPPolicy SOMERSETDOB: Community Number: [id number] Hospital [id number] Repository Date:7815-57-17[address], [place] [address]NC: 05/19/2018 Tertiary NOT GIVENUNK [place] Insurance:SELF PAY [facility] Number: Effective Repository Date:2018-05-19 05/19/2018 NITIN L Primary NITIN Davis [id number] [place] Insurance:MEDICARE SOMERSETDOB: [facility] PART A [facility] [id number] [address]Gxf: Number: Repository [id number] (HP) Date:2018-05-06 05/19/2018 Secondary NITIN Beyer [place] Insurance:AARPPolicy SOMERSETDOB: Community Number: [id number] Hospital [id number] Repository Date:5800-54-11[address], [place] [address]UX: 05/19/2018 Tertiary NOT GIVENUNK [place] Insurance:SELF PAY [facility] Number: Effective Repository Date:2018-05-06 05/06/2018 NITIN Beyer Primary NITIN Davis [id number] [place] Insurance:MEDICARE SOMERSETDOB: [facility] PART A [facility] [id number] [address]Zup: Number: Repository [id number] (HP) Date:2018-05-06 05/06/2018 Secondary NITIN L [place] Insurance:AARPPolicy WELDOB: Community Number: [id number] Hospital [id number] Repository Date:6605-30-20[address], [place] [address]DJ: 05/06/2018 Tertiary NOT GIVENUNK [place] Insurance:SELF PAY [facility] Number: Effective Repository Date:2018-05-06 05/06/2018 NITIN L Primary NITIN Davis [id number] [place] Insurance:MEDICARE [facility]: [facility] [id number] Hospital [place] [address]Zds: Number: Repository [id number] (HP) Date:2017-11-04 05/06/2018 Secondary NITIN Beyer [place] Insurance:AARPPolicy SOMERSETDOB: Community Number: [id number] Hospital [id number] Repository Date:1274-40-40[address], [place] [address]KJ: 05/06/2018 Tertiary NOT GIVENUNK [place] Insurance:SELF PAY [facility] Number: Effective Repository Date:2018-04-05 12/17/2017 NITIN L Primary NITIN Beyer Jewish [facility] W sunny Number: Effective [id number] Alphonso CRESPO Date:2017-12-17 CHERIE [facility] 9150[place]07[place], [place] Name:CD:[id number] [facility] [address]Pvk: [id number] [place]IL[place] [id number]: [phone]: [phone] ([phone] (HP) (WP) 12/17/[address] Insurance:AARPPolicy WELSHDOB: [facility] Number: Effective [id number] System Date:2017-12-17 [place] [facility] [id number], Name::[id number] [facility] 774789BUPNGXP, [place] [address]Pjy: [id number]: [phone] (HP) (WP) 11/25/2017 NITIN L Primary NITIN L Susan [id number] [place] Insurance:MEDICARE [facility], PART A [facility] [id number] [address]Tbh: Number: Repository [id number] () Date:2017-11-20 11/25/2017 Secondary NITIN L [place] [facility] Community Number: [id number] Hospital [id number] Repository Date:[id number] [address]PQ: 11/25/2017 Tertiary NOT GIVENUNK [place] Insurance:SELF PAY [facility] Number: Effective Repository Date:2017-11-20 11/05/2017 NITIN L Primary NITIN L [place] [id number] [place] Insurance:MEDICARE [facility], PART A [facility] [id number] [address]Lld: Number: Repository [id number] () Date:2017-11-05 11/05/2017 Secondary NITIN L [place] Insurance[facility] Number: [id number] Hospital [id number] Repository Date:[id number] [address]NE: 11/05/2017 Tertiary NOT GIVENUNK [place] Insurance:SELF PAY [facility] Number: Effective Repository Date:2017-11-05 11/04/2017 NITIN Beyer Primary NITIN Davis [id number] [place] Insurance:MEDICARE WELDOB: [facility] PART A [facility] [id number] [place], [place] [address]Dtd: Number: Repository [id number] (HP) Date:2017-05-18 11/04/2017 Secondary NITIN Beyer [place] Insurance:AARPPolicy SOMERSETDOB: Community Number: [id number] Hospital [id number] Repository Date:3471-25-16XA [facility] 981400IQG[place]ZV, [place] [address]ZL: 11/04/2017 Tertiary NOT GIVENUNK [place] Insurance:SELF PAY [facility] Number: Effective Repository Date:2017-11-04 11/03/2017 Nitin Beyer Primary Nitin Davis [id number] [place] Insurance:MEDICARE WelshDOB: [facility], PART A [facility] [id number] [place] [address]Lgv: Number: Repository [id number] () Date:2017-11-03 11/03/2017 Secondary Nitin Beyer [place] Insurance:AARolicy DrytownDOB: Community Number: [id number] Hospital [id number] Repository Date:1799-78-09NG [facility] 452963FSXDGPW, [place] [address]KV: 11/03/2017 Tertiary NOT GIVENUNK [place] Insurance:SELF PAY [facility] Number: Effective Repository Date:2017-11-03 10/16/2017 Nitin Beyer Primary Nitin Davis [id number] [place] Insurance:MEDICARE WelshDOB: [facility], PART A [facility] [id number] Hospital [place] [address]Gll: Number: Repository [id number] (HP) Date:2017-10-16 10/16/2017 Secondary Nitin Davis Insurance:AARPPolicy WelshDOB: Community Number: [id number] Hospital [id number] Repository Date:3587-14-39QE [address], [place] [address]VI: 10/16/2017 Tertiary NOT GIVENUNK [place] Insurance:SELF PAY [facility] Number: Effective Repository Date:2017-10-16 10/02/2017 Nitin Beyer Primary Nitin Davis [id number] [place] Insurance:MEDICARE WelDOB: [facility], PART A [facility] [id number] Comprehensive Health Center [address]Yip: Number: Repository [id number] () Date:2017-09-21 10/02/2017 Secondary Nitin Davis Insurance:AARPPolicy WelshDOB: Community Number: [id number] Hospital [id number] Repository Date:9011-42-99[address]FCKFGYH, [place] [address]XL: 10/02/2017 Tertiary NOT GIVENUNK [place] Insurance:SELF PAY [facility] Number: Effective Repository Date:2017-09-21 09/29/2017 Nitin Beyer Primary Nitin Davis [id number] [place] Insurance:MEDICARE WelDOB: [facility], PART A [facility] [id number] Comprehensive Health Center [address]Lya: Number: Repository [id number] () Date:2017-09-29 09/29/2017 Secondary Nitin Davis Insurance:AARPPolicy WelshDOB: Community Number: [id number] Hospital [id number] Repository Date:2492-61-32GS [address]WRAXJ, [place] [address]ZS: 09/29/2017 Tertiary NOT GIVENUNK [place] Insurance:SELF PAY [facility] Number: Effective Repository Date:2017-09-29 09/23/2017 Nitin Beyer Primary Nitin Davis [id number] [place] Insurance:MEDICARE WelshDOB: [facility], PART A BPolicy [id number] Comprehensive [facility] [address]Fuo: Number: Repository [id number] () Date:2017-09-23 09/23/2017 Secondary Nitin Beyer [place] Insurance:AARPPolicy WelDOB: Community Number: [id number] Hospital [id number] Repository Date:9750-20-87TM [address]YTKWGES, [place] [address]MJ: 09/23/2017 Tertiary NOT GIVENUNK [place] Insurance:SELF PAY [facility] Number: Effective Repository Date:2017-09-23 09/01/2017 Nitin L Primary Nitin Davis [id number] [place] Insurance:MEDICARE [place]OB: [facility] PART A [facility] [id number] Comprehensive Health Center [address]Bvw: Number: Repository [id number] () Date:2017-08-28 09/01/2017 Secondary Nitin L [place] Insurance:AARPPolicy WelDOB: Community Number: [id number] Hospital [id number] Repository Date:2509-16-60LI [address]QLBMDIH, [place] [address]BJ: 09/01/2017 Tertiary NOT GIVENUNK [place] Insurance:SELF PAY [facility] Number: Effective Repository Date:2017-08-28 08/18/2017 Nitin L Primary Nitin Davis [id number] [place] Insurance:MEDICARE WelDOB: [facility] PART A [facility] [id number] Comprehensive Health Center [address]Gfw: Number: Repository [id number] () Date:2017-08-18 08/18/2017 Secondary Nitin L [place] Insurance:AARPPolicy WelshDOB: Community Number: [id number] Hospital [id number] Repository Date:2464-18-95GF [facility] 492847BMCKPKF, [place] [address]FQ: 08/18/2017 Tertiary NOT GIVENUNK [place] Insurance:SELF PAY [facility] Number: Effective Repository Date:2017-08-18 07/23/2017 Nitin Kayleen Primary Nitin Davis [id number] [place] Insurance:MEDICARE [facility]: [facility], PART A [facility] [id number] [place] [address]Xpa: Number: Repository [id number] () Date:2017-07-15 07/23/2017 Secondary Nitin Davis Insurance:[facility]: Community Number: [id number] Hospital [id number] Repository Date:9273-81-25PD [address]VDRCMSD, [place] [address]NZ: 07/23/2017 Tertiary NOT DINESH [place] Insurance:SELF PAY [facility] Number: Effective Repository Date:2017-07-15
== END ==
PROVIDERS: Referring Provider Internal Medicine Cardiovascular Disease; Visit Provider Internal Medicine Cardiovascular Disease
DX: I46.9 Cardiac arrest, cause unspecified (principal)
CPT/HCPCS: 93306

== ENCOUNTER → 2018-07-12 09:37 | Outpatient (CLI) | payer MEDICARE, OTHER, SELFPAY ==
[2018-05-06 14:16] VITALS: BMI 25.2
[2018-07-12 11:03] LABS: T4 Total, Thyroxin 11.1 ug/dL (4.5-12.1); Thyroid Stim Hormone (TSH) 4.29 uIU/mL (0.358-3.74)
== END ==
PROVIDERS: Referring Provider Internal Medicine Cardiovascular Disease; Visit Provider Internal Medicine Cardiovascular Disease
DX: E78.5 Hyperlipidemia, unspecified (principal); I10 Essential (primary) hypertension; R79.89 Other specified abnormal findings of blood chemistry; Z79.899 Other long term (current) drug therapy
CPT/HCPCS: 36415; 84436; 84443

== ENCOUNTER → 2021-04-10 08:46 | Outpatient (CLI) | payer MEDICARE, OTHER, SELFPAY ==
[2021-04-10 11:54] LABS: Cholesterol 174 mg/dL (200); High Density Lipoprotein 63 mg/dL; Triglycerides 66 mg/dL; Very Low Density Lipoprotein 13 mg/dL (5-40)
== END ==
PROVIDERS: Referring Provider Internal Medicine Cardiovascular Disease; Visit Provider Internal Medicine Cardiovascular Disease
DX: I48.0 Paroxysmal atrial fibrillation (principal); I35.1 Nonrheumatic aortic (valve) insufficiency; E78.5 Hyperlipidemia, unspecified; I10 Essential (primary) hypertension; C95.90 Leukemia, unspecified not having achieved remission
CPT/HCPCS: 36415; 80061

== ENCOUNTER 2021-09-13 11:57 | Emergency (ER) | payer MEDICARE, OTHER, SELFPAY ==
[2021-09-13 11:57] VITALS: BP 184/79; PULSE 68; RESP 15; TEMP 36.1; O2SAT 97; BMI 25.0
--- NOTE | 2021-09-13 12:31 | CT_ITS ---
STUDY: CT FACIAL BONES WITHOUT CONTRAST REASON FOR EXAM: Male, 85 years old. History of fall. RADIATION DOSAGE (If Supplied By Facility): CTDIvol = ( 29.38 ) mGy, DLP = ( 532.76 ) mGycm TECHNIQUE: The patient was scanned in a multi detector CT scanner. Sagittal and coronal images were reconstructed. Individualized dose optimization techniques were used for this CT. COMPARISON: None. FINDINGS: Normal soft tissue structures. Normal orbital mina and orbital contents. Normal nasal bones and anterior nasal spine. Normal facial bones. There is no demonstrated fracture. Minimal mucosal thickening of the right maxillary sinus. CT/Sinus/Facial Bone IMPRESSION: Minimal mucosal thickening of the right maxillary sinus. Electronically Signed: Brayden Sánchez MD at 13:13 EDT ,
--- NOTE | 2021-09-13 12:31 | CT_ITS ---
STUDY: CT BRAIN WITHOUT CONTRAST REASON FOR EXAM: Male, 85 years old. Fall RADIATION DOSAGE (If Supplied By Facility): CTDIvol = ( 44.99 ) mGy, DLP = ( 829.85 ) mGycm TECHNIQUE: Transaxial CT imaging of the brain was performed without administration of intravenous contrast material. Individualized dose optimization techniques were used for this CT. COMPARISON: No relevant priors. FINDINGS: Normal soft tissue structures. Normal calvarium. There is mild cerebral atrophy with widening of the extra-axial spaces and ventricular dilatation. There are areas of decreased attenuation within the white matter tracts of the supratentorial brain, consistent with microvascular disease changes. Focal encephalomalacia is seen in the posterior superior right parietal occipital lobe. Normal basal ganglia and thalami. Normal brainstem. Normal cerebellum. There is no intracranial hemorrhage. There are no findings of an acute ischemic infarction. Atherosclerotic calcific plaques at the cavernous portions of the internal carotid arteries bilaterally. Normal visualized paranasal sinuses. CT/Brain/Head without Contrast IMPRESSION: Chronic involutional changes of the brain. Electronically Signed: Brayden Sánchez MD at 13:12 EDT ,
--- NOTE | 2021-09-13 12:31 | CT_ITS ---
STUDY: CT CERVICAL SPINE WITHOUT CONTRAST REASON FOR EXAM: Male, 85 years old. Fall RADIATION DOSAGE (If Supplied By Facility): CTDIvol = ( 21.09 ) mGy, DLP = ( 491.16 ) mGycm TECHNIQUE: High resolution transaxial imaging was performed without contrast material. Sagittal and coronal images were reconstructed. Individualized dose optimization techniques were used for this CT. COMPARISON: None FINDINGS: Normal craniovertebral junction. There are degenerative changes of the anterior atlantoaxial articulation. Normal odontoid process. There is a grade 1 anterior spondylolisthesis of C4 on C5 by 2 mm. There is multilevel disc space narrowing and facet hypertrophy. C2-3: There is multilevel endplate spondylosis. Normal central canal and intervertebral neuroforamina. C3-4: There is a posterior disc osteophyte and facet hypertrophy associated bilateral narrowing of the intervertebral neuroforamina. C4-5: There is a posterior disc osteophyte and facet hypertrophy associated with narrowing of the right intervertebral neuroforamina. C5-6: There is a posterior disc osteophyte associated with narrowing of the left intervertebral neuroforamina. C6-7: There is endplate spondylosis. Normal central canal and intervertebral neuroforamina. C7-T1: There is endplate spondylosis. Normal central canal and intervertebral neuroforamina. There are vascular calcifications. CT/Spine Cervical without Contras IMPRESSION: Multilevel degenerative changes, as described above. Atherosclerosis. Electronically Signed: Ghada Christopher MD at 13:12 EDT ,
--- NOTE | 2021-09-13 12:35 | EX.ED.DYSGE1 ---
HPI <VIMAL Arevalo - Last Filed: 09/13/21 13:24> History of Present Illness Chief Complaint: Head Injury Narrative Narrative: 85-year-old male with history of prostate cancer, history of leukemia who is in remission, hypertension, CAD presents to the emergency department after mechanical fall, facial injury. Patient states he was walking outside, stubbed his toe on an object, falling face forward striking the left side of his face. Patient denies any LOC. Patient is currently not on any blood thinners, patient has an abrasion, swelling to his left eye, as well as a minimal headache. Patient is acting appropriate, patient did go to urgent care however was referred here to the emergency department. [facility] <VIMAL Arevalo - Last Filed: 09/13/21 13:24> [facility] Medical History (Updated 09/13/21 @ 13:24 by VIMAL Arevalo) BPH (benign prostatic hyperplasia) Cardiac arrest Essential (primary) hypertension GI bleed Hairy cell leukemia, in remission Hemorrhagic shock Hyperlipidemia Hypothyroidism Leukemia Nonrheumatic aortic (valve) insufficiency Osteoarthritis Paroxysmal atrial fibrillation Paroxysmal atrial flutter Home Medications tamsulosin 0.4 mg PO DAILY 09/06/14 [History Last Taken Unknown] carvedilol 25 mg tablet 25 mg PO BID tab 06/28/19 [History Last Taken Unknown] cholecalciferol (vitamin D3) 25 mcg (1,000 unit) capsule 25 mcg PO DAILY 05/22/20 [History Last Taken Unknown] atorvastatin 10 mg tablet 10 mg PO QHS tab 03/26/21 [History Last Taken Unknown] valsartan 80 mg tablet 80 mg PO DAILY #90 tab 03/26/21 [Rx Last Taken Unknown] pantoprazole 40 mg PO BID 09/13/21 [History Last Taken Unknown] Allergy/AdvReac Type Severity Reaction Status Date / Time allopurinol Allergy Swelling Verified 09/13/21 11:59 ciprofloxacin [From Cipro] Allergy Unknown Verified 09/13/21 11:59 ciprofloxacin HCl Allergy Unknown Verified 09/13/21 11:59 [From Cipro] sulfamethoxazole Allergy Unknown Verified 09/13/21 11:59 [From Bactrim] trimethoprim [From Bactrim] Allergy Unknown Verified 09/13/21 11:59 iodine contrast Allergy swelling Uncoded 09/13/21 11:59 Surgical History H/O splenectomy History of tonsillectomy Social History Smoking Status: Never smoker alcohol intake: never caffeine: Yes Type: coffee Number of servings: 2 what type of physical activity do you participate in: none ROS <VIMAL Arevalo - Last Filed: 09/13/21 13:24> ROS ED ROS Narrative Constitutional: Negative for fever, chills, weight loss, weakness Eyes: Negative for vision loss, vision change, double vision ENT: Negative for any sore throat, ear pain, congestion. Positive for pain, bruising to under the left eye Cardiovascular: Negative for any chest pain, tightness, palpitations, racing heartbeat Respiratory: Negative for any cough, sputum production, hemoptysis, shortness of breath, shortness of breath on exertion, orthopnea Gastrointestinal: Negative for any abdominal pain, nausea, vomiting, diarrhea, constipation, blood in stool, blood in vomit : Negative for any urinary frequency, incontinence, dysuria, retention, blood in urine Muscle skeletal: Negative for any muscle joint pain, stiffness, myalgias, arthralgias, neck pain, back pain Neurological: Negative for any dizziness, syncope, numbness or tingling. Positive for headache Skin: Negative for any rashes, lumps, itching, lacerations. Positive for abrasion, ecchymosis Psychiatric: Negative for any depression, anxiety, stress, suicidal ideation, homicidal ideation Hematologic: Negative for any easy bruising, excessive bruising, easy bleeding Allergies: Negative for any eczema, hives, rash EXAM <VIMAL Arevalo - Last Filed: 09/13/21 13:24> Physical Exam Narrative Exam Narrative: SupraVital signs reviewed. HEET: Head normocephalic atraumatic, TMs clear bilaterally. Posterior pharynx is clear, moist mucous membranes. Nares clear bilaterally. Pupils are equal round react to light, negative for any hematoma, septal hematoma. Patient does have ecchymosis, slight abrasion beneath the left eye. Negative for any globe injury. Neck: Supple with no lymphadenopathy or tenderness. No signs of meningismus, negative jolt sign. Cardiac: Regular rate and rhythm no murmurs gallops or rubs, equal peripheral pulses bilaterally. Respiratory: Lungs clear to auscultation bilaterally. No chest tenderness. Abdomen: Soft, nontender, nondistended. No abdominal bruit or pulsatile masses. No hepatosplenomegaly Extremities: No peripheral edema, no signs of gross trauma or deformity. Active full range of motion of all extremities. Patient has strength in all extremities. Neuro: Cranial nerves II through XII intact, no focal neurological deficits. Skin: Clean dry and intact with no rash, purpura, petechiae, vesicles or pustules. Patient does have a small laceration to the left thumb however this is superficial and does not require any sutures. Backslash flank: No CVA tenderness, no midline spinal tenderness, no deformity. Psych: Normal mood and affect. No SI, HI or acute psychosis. Const Vital Signs: 09/13/21 11:57 Temperature 96.9 F L Temperature Source Temporal Pulse Rate 68 Respiratory Rate 15 Blood Pressure 184/79 H Blood Pressure Mean 114 Pulse Ox 97 Oxygen Delivery Method Room Air Positive well nourished and well developed General Appearance ED: well developed <Dr. Salvador Tristan MD - Last Filed: 09/13/21 18:18> Physical Exam Const Vital Signs: 09/13/21 11:57 Temperature 96.9 F L Temperature Source Temporal Pulse Rate 68 Respiratory Rate 15 Blood Pressure 184/79 H Blood Pressure Mean 114 Pulse Ox 97 Oxygen Delivery Method Room Air MDM <VIMAL Arevalo - Last Filed: 09/13/21 13:24> [facility] Narrative Medical decision making narrative: Patient appears well, patient appears nontoxic, vital signs are stable. Patient presents to the emergency department after a mechanical fall striking the left side of his face. Patient did receive CAT scans of his maxillofacial bones, brain as well as cervical spine. These were grossly unremarkable for any acute process. At this time, the patient be diagnosed with a fall, closed head injury, contusion. Patient structured to use Tylenol, and to keep his abrasion clean and dry. Patient is agreeable with the plan. Patient instructed to return for any worsening symptoms, such as altered mental status, nausea vomiting, dizziness. Patient stable for discharge. Lab Data Attestation: I reviewed the patient's lab results. Radiography Diagnostic Testing: Clinical Impression(s) from Imaging Studies Brain CT 09/13/21 12:31 IMPRESSION: Chronic involutional changes of the brain. Electronically Signed: Brayden Sánchez MD at 13:12 EDT , Cervical Spine CT 09/13/21 12:31 IMPRESSION: Multilevel degenerative changes, as described above. Atherosclerosis. Electronically Signed: Ghada Christopher MD at 13:12 EDT , Facial/Sinus 09/13/21 12:31 IMPRESSION: Minimal mucosal thickening of the right maxillary sinus. Electronically Signed: Brayden Sánchez MD at 13:13 EDT , <Dr. Salvador Tristan MD - Last Filed: 09/13/21 18:18> [facility] Narrative Medical decision making narrative: I have personally performed a face to face assessment of the patient and have reviewed the ELMER Note. I performed a substantive portion of the visit including all aspects of the following. My cheney findings include: Patient seen by me, he had a mechanical fall and hit his face. He has no neck pain. He has no weakness. On exam he has normal strength in his upper and lower extremities both. He has normal CTs and will be discharged with reassurance. Radiography Diagnostic Testing: Clinical Impression(s) from Imaging Studies Brain CT 09/13/21 12:31 IMPRESSION: Chronic involutional changes of the brain. Electronically Signed: Brayden Sánchez MD at 13:12 EDT , Cervical Spine CT 09/13/21 12:31 IMPRESSION: Multilevel degenerative changes, as described above. Atherosclerosis. Electronically Signed: Ghada Christopher MD at 13:12 EDT , Facial/Sinus 09/13/21 12:31 IMPRESSION: Minimal mucosal thickening of the right maxillary sinus. Electronically Signed: Brayden Sánchez MD at 13:13 EDT , Discharge Plan Triage Chief Complaint: Head Injury ED Midlevel Provider: Salvador Shepard ED Provider: Salvador Tristan Dx/Rx/DC Orders Clinical Impression: Head injury, Contusion Instructions: After a Concussion, Black Eye, Bruises (Contusions) Prescriptions: No Action carvedilol 25 mg tablet 25 mg PO BID RF: 0 cholecalciferol (vitamin D3) 25 mcg (1,000 unit) capsule 25 mcg PO DAILY RF: 0 atorvastatin 10 mg tablet 10 mg PO QHS RF: 0 valsartan 80 mg tablet 80 mg PO DAILY Qty: 90 RF: 3 tamsulosin 0.4 MG capsule 0.4 mg PO DAILY RF: 0 pantoprazole 40 mg tablet,delayed release (DR/EC) 40 mg PO BID RF: 0 Primary Care Provider: Brian Mercado Referrals: Brian Mercado MD [Primary Care Provider] - Activity Restrictions/Additional Instructions: Please ice your left side your face, please use Tylenol for any pain. Print Language: Greek Disposition Disposition: Home, Self Care Discharge Date/Time: 09/13/21 13:29
== END 2021-09-13 13:29 | disposition home or self-care (01) ==
PROVIDERS: Emergency Provider Emergency Medicine; Visit Provider Emergency Medicine
DX: S00.93XA Contusion of unspecified part of head, initial encounter (principal); I48.0 Paroxysmal atrial fibrillation; W19.XXXA Unspecified fall, initial encounter; E78.5 Hyperlipidemia, unspecified; I25.10 Atherosclerotic heart disease of native coronary artery without angina pectoris; I10 Essential (primary) hypertension; Z85.6 Personal history of leukemia; N40.0 Benign prostatic hyperplasia without lower urinary tract symptoms; Z87.19 Personal history of other diseases of the digestive system; E03.9 Hypothyroidism, unspecified; M19.90 Unspecified osteoarthritis, unspecified site; Z86.74 Personal history of sudden cardiac arrest; Y93.01 Activity, walking, marching and hiking; Y92.9 Unspecified place or not applicable; Z79.899 Other long term (current) drug therapy
CPT/HCPCS: 70450; 70486; 72125; 99282

== ENCOUNTER 2022-04-25 10:44 | Outpatient (CLI) | payer MEDICARE, OTHER, SELFPAY ==
[2022-04-25 11:47] LABS: AST(SGOT) 7 U/L (15-37); Alanine Aminotransfer ALT/SGPT 16 U/L (16-61); Albumin, Serum 3.4 g/dL (3.2-5.0); Alkaline Phosphatase 84 U/L (45-117); Bilirubin, Direct 0.18 mg/dL (0.00-0.30); Cholesterol 175 mg/dL (200); High Density Lipoprotein 51 mg/dL; Protein, Total 6.4 g/dL (6.4-8.2); Triglycerides 98 mg/dL; Very Low Density Lipoprotein 20 mg/dL (5-40)
== END 2022-04-25 23:59 | disposition home or self-care (01) ==
LOC: LAB 10:47
PROVIDERS: Visit Provider Physician Assistant Medical
DX: E78.00 Pure hypercholesterolemia, unspecified (principal)
CPT/HCPCS: 36415; 80061; 80076

== ENCOUNTER 2022-11-17 02:34 | Emergency (ER) | payer MEDICARE, OTHER, SELFPAY ==
[2022-11-17 02:35] VITALS: BP 184/97; PULSE 73; RESP 18; TEMP 36.3; O2SAT 94; BMI 24.1
--- NOTE | 2022-11-17 02:41 | EKG12_ITS ---
Test Reason : PALPITATIONS Blood Pressure : / mmHG Vent. Rate : 068 BPM Atrial Rate : 068 BPM P-R Int : 158 ms QRS Dur : 092 ms QT Int : 388 ms P-R-T Axes : 007 -17 009 degrees QTc Int : 412 ms Normal sinus rhythm Normal ECG Confirmed by ANTONIA DEVINE, TRACEY ([id number]), social media editor ALEJANDRO SUMMERS ([id number]) on 11/18/2022 9:01:52 AM Referred By: KHURRAM Confirmed By:TERRY KNIGHT MD
[2022-11-17 03:16] LABS: Absolute Lymphocyte Count 0.39 X10^3/uL (0.83-4.51); Absolute Neutrophil Count 1.7 X10^3/uL (2.0-7.7); Basophil# 0.02 X10^3/uL; Basophil% 0.9 % (0-1); Eosinophil# 0.08 X10^3/uL; Eosinophils% 3.6 % (0-5); Hematocrit 37.6 % (40-54); Lymphocyte # 0.39 X10^3/ul (0.83-4.51); Lymphocyte % 17.3 % (19-41); Mean Corp Hgb Conc 34.6 g/dL (32-36); Mean Corpuscular Hgb 35.2 pg (27.0-32.0); Mean Corpuscular Volume 101.9 fL (80-94); Monocyte# 0.08 X10^3/uL; Monocyte% 3.6 % (0-10); NRBC Flagged by Analyzer 0 % (0-5); Neutrophil # 1.66 X10^3/uL (2.7-7.7); Neutrophil % 73.7 % (47-70); POSITIVE DIFFERENTIAL YES; Platelet Count 200 K/mm3 (150-450); RBC Distribution Width CV 13.9 % (11.6-14.6); RBC Distribution Width SD 52.8 fl (35.1-43.9); Red Blood Count 3.69 M/mm3 (4.6-6.2); White Blood Count 2.3 K/mm3 (4.4-11.0)
[2022-11-17 03:29] LABS: Differential Indicated SCAN CRITERIA MET
[2022-11-17 03:35] VITALS: BP 176/84; PULSE 73; RESP 14; O2SAT 97
[2022-11-17 03:43] LABS: Macrocytosis 1+
[2022-11-17 03:58] LABS: Anion Gap 7 (5-15); BUN 26 mg/dL (7-18); Calcium,Total 8.4 mg/dL (8.5-10.1); Chloride 110 mmol/L (98-107); Creatinine, Serum 1.04 mg/dL (0.70-1.30); EST Glomerular Filtration Rate 72 mL/min (>60); Est Glom Filt Rate - Afr Amer 87 mL/min (>60); Estimated Creatinine Clearance 49.43 ml/min; Glucose 100 mg/dL (74-106); Magnesium 2.1 mg/dL (1.6-2.6); Potassium 4.1 mmol/L (3.5-5.1); Sodium Level 137 mmol/L (136-145); Thyroid Stim Hormone (TSH) 5.55 uIU/mL (0.358-3.74); Troponin-I HS 76 pg/mL (3.0-78.0)
[2022-11-17 04:00] VITALS: BP 168/81; PULSE 61; RESP 16; O2SAT 97
[2022-11-17 05:00] VITALS: BP 174/81; PULSE 64; RESP 15; O2SAT 97
[2022-11-17 05:28] LABS: Troponin-I HS 77 pg/mL (3.0-78.0)
--- NOTE | 2022-11-17 05:40 | EDS_ITS ---
HPI History of Present Illness Chief Complaint: Palpitations Informant: patient and EMS Narrative Narrative: Patient is 86-year-old male from home with remote history of paroxysmal atrial fibrillation as well as hypertension and hyperlipidemia. He states he has not been in A-fib for multiple years and therefore he is not on any type of anticoagulation. He states roughly 4 hours prior to arrival he started feeling his heart was beating abnormally. He states he tried to rest around the house and give it time but the symptoms would not resolve and secondary to this he called EMS. He states has been no new medications and he denies any illicit drug use or excessive stimulant use. He states when EMS arrived he thought his symptoms stopped but based on this prolonged nature he was brought in for further evaluation [facility] Medical History (Updated 11/20/22 @ 06:[address] Mk Casey, ) BPH (benign prostatic hyperplasia) Cardiac arrest Essential (primary) hypertension GI bleed Hairy cell leukemia, in remission Hemorrhagic shock Hyperlipidemia Hypothyroidism Leukemia Nonrheumatic aortic (valve) insufficiency Osteoarthritis Paroxysmal atrial fibrillation Paroxysmal atrial flutter Home Medications tamsulosin 0.4 mg capsule 0.4 mg PO DAILY 09/06/14 [History Last Taken Unknown] carvedilol 25 mg tablet 25 mg PO BID 06/28/19 [History Last Taken Unknown] cholecalciferol (vitamin D3) 25 mcg (1,000 unit) capsule 25 mcg PO DAILY 05/22/20 [History Last Taken Unknown] atorvastatin 10 mg tablet 10 mg PO QHS 03/26/21 [History Last Taken Unknown] pantoprazole 40 mg tablet,delayed release 40 mg PO BID 09/13/21 [History Last Taken Unknown] valsartan 80 mg tablet 80 mg PO DAILY #90 tabs 10/29/22 [Rx Last Taken Unknown] Allergy/AdvReac Type Severity Reaction Status Date / Time allopurinol Allergy Swelling Verified 11/17/22 02:35 ciprofloxacin [From Cipro] Allergy Unknown Verified 11/17/22 02:35 ciprofloxacin HCl Allergy Unknown Verified 11/17/22 02:35 [From Cipro] Iodinated Contrast Media Allergy Swelling Verified 11/17/22 02:35 [iodine contrast] sulfamethoxazole Allergy Unknown Verified 11/17/22 02:35 [From Bactrim] trimethoprim [From Bactrim] Allergy Unknown Verified 11/17/22 02:35 Surgical History H/O splenectomy History of tonsillectomy Social History Smoking Status: Never smoker alcohol intake: never caffeine: Yes Type: coffee Number of servings: 2 what type of physical activity do you participate in: none ROS ROS ED Constitutional Constitutional ED: Denies chills or fever(s) ENT ENT ED: Denies sore throat Cardiovascular Cardiovascular: Reports palpitations; Denies chest pain or racing heartbeat Respiratory/Chest Respiratory/Chest: Denies cough or dyspnea Gastrointestinal Gastrointestinal: Denies abdominal pain, diarrhea, nausea or vomiting Genitourinary Genitourinary ED: Denies dysuria Musculoskeletal Musculoskeletal: Denies myalgias Integumentary Denies rash Neurologic Neurologic: Denies headache(s) Hematologic/Lymphatic Hematologic/Lymphatic: Denies easy bleeding or easy bruising EXAM Physical Exam Const Vital Signs: 11/17/22 02:35 11/17/22 02:37 11/17/22 03:35 Temperature 97.3 F L Temperature Source Temporal Pulse Rate 73 73 Respiratory Rate 18 14 Respiratory Effort Normal Non-Labored Blood Pressure 184/97 H 176/84 H Blood Pressure Mean 126 114 Pulse Ox 94 97 Oxygen Delivery Method Room Air Room Air 11/17/22 04:00 11/17/22 05:00 Temperature Temperature Source Pulse Rate 61 64 Respiratory Rate 16 15 Respiratory Effort Blood Pressure 168/81 H 174/81 H Blood Pressure Mean 110 112 Pulse Ox 97 97 Oxygen Delivery Method Room Air Positive well nourished and well developed General Appearance ED: well developed HEENT HEENT Narrative: Normocephalic atraumatic Eyes PERRL and EOMs intact bilaterally General Eye ED: Negative for pale conjunctiva Neck supple Chest Wall palpation of chest normal Resp normal respiratory effort and clear to auscultation bilaterally Cardio regular rate and regular rhythm Rate: other Other Details: There is an occasional ectopic beat noted Radial pulses are plus 2 out of 4 bilaterally are equal and symmetric GI normal to inspection, nondistended, normoactive bowel sounds, non-tender, non- distended and no masses GI Narrative: No voluntary guarding or rigidity no pulsatile mass Auscultation: normoactive bowel sounds Palpation: soft Extremity normal to inspection Extremity Narrative: No asymmetric edema no pitting edema negative Homans' sign bilaterally Neuro oriented x3, CN's II-XII intact bilaterally and no sensory deficits noted Sensorium / Orientation: alert Motor Exam: strength 5/5 throughout Psych mental status grossly normal Skin no rashes or lesions noted MDM MDM MDM Narrative Medical decision making narrative: The patient arrived to the ER hypertensive but does have a past medical history of this and otherwise vitals are stable. He denies any chest pain associated with his symptoms and reported just a feeling of abnormal heart rhythm. EKG per EMS did show a PVC and there were an occasional ectopic beat noted on exam but EKG in the ER did not capture any type of dysrhythmia. With concern he was returning to a abnormal rhythm such as A-fib a flutter or SVT or V. tach he was kept on the monitor and a basic work-up was obtained. The patient's electrolytes were within normal range she did not have acute kidney injury and has no troponin was slightly elevated at 76 and this could correlate with the fact he may have been in an abnormal heart rhythm for the past 4 hours. The delta was obtained 2 hours later and was flat at 77. Moreover the patient does not have any chest pain. Therefore as this value was technically at the upper limit of normal patient has no chest pain and we have not captured a dysrhythmia in the ER do not feel there is need for further evaluation and he can see his marketing operations coordinator for Holter monitor and is otherwise safe for discharge History & Record Review Discussion w/independent historian: EMS personnel and Patient Lab Data Attestation: I reviewed the patient's lab results. Labs: Laboratory Results - last 24 hr 11/17/22 11/17/22 11/17/22 03:05 03:05 05:00 WBC 2.3 L RBC 3.69 L Hgb 13.0 Hct 37.6 L MCV 101.9 H MCH 35.2 H MCHC 34.6 RDW Std Deviation 52.8 H RDW Coeff of Vane 13.9 Plt Count 200 MPV 9.0 Immature Gran % (Auto) 0.900 Neut % (Auto) 73.7 H Lymph % (Auto) 17.3 L Hart % (Auto) 3.6 Eos % (Auto) 3.6 Baso % (Auto) 0.9 Absolute Neuts (auto) 1.7 L Absolute Lymphs (auto) 0.39 L Nucleated RBC % 0 Diff Path Review May foll Macrocytosis 1+ Sodium 137 Potassium 4.1 Chloride 110 H Carbon Dioxide 20.0 L Anion Gap 7 BUN 26 H Creatinine 1.04 Estim Creat Clear Calc 49.43 Est GFR (MDRD) Af Amer 87 Est GFR (MDRD) Non-Af 72 BUN/Creatinine Ratio 25.0 H Glucose 100 Calcium 8.4 L Magnesium 2.1 Troponin I High Sens 76 77 TSH 5.55 H Discharge Plan Triage Chief Complaint: Palpitations ED Provider: Mk Casey Dx/Rx/DC Orders Clinical Impression: PVC's (premature ventricular contractions), Heart palpitations, Essential (primary) hypertension Prescriptions: No Action carvedilol 25 mg tablet 25 mg PO BID Label Comments: TAKE 1 TABLET BY MOUTH TWICE A DAY WITH FOOD cholecalciferol (vitamin D3) 25 mcg (1,000 unit) capsule 25 mcg PO DAILY atorvastatin 10 mg tablet 10 mg PO QHS tamsulosin 0.4 MG capsule 0.4 mg PO DAILY pantoprazole 40 mg tablet,delayed release (DR/EC) 40 mg PO BID Label Comments: TAKE 1 TABLET BY MOUTH TWICE A DAY valsartan 80 mg tablet 80 mg PO DAILY Qty: 90 3RF Primary Care Provider: Care Physician,No Primary Referrals: Vasquez Gonzalez MD [Med Staff - Active Staff] - Care Physician,No Primary [Primary Care Provider] - Activity Restrictions/Additional Instructions: Your work-up today only revealed occasional premature ventricular contractions but your history is concerning that you are in an abnormal heart rhythm such as atrial fibrillation a flutter or SVT. Follow-up with your marketing operations coordinator to discuss Holter monitor and return to the ER should you have any further concerns Disposition Disposition: Home, Self Care Discharge Date/Time: 11/17/22 05:52
[2022-11-17 12:48] LABS: Pathologist Review Reviewed
== END 2022-11-17 05:52 | disposition home or self-care (01) ==
PROVIDERS: Emergency Provider Emergency Medicine; Visit Provider Emergency Medicine
DX: I49.3 Ventricular premature depolarization (principal); I48.0 Paroxysmal atrial fibrillation; R00.2 Palpitations; I10 Essential (primary) hypertension; E78.5 Hyperlipidemia, unspecified; N40.0 Benign prostatic hyperplasia without lower urinary tract symptoms; Z79.899 Other long term (current) drug therapy
CPT/HCPCS: 80048; 83735; 84443; 84484; 85025; 93005; 99285; A4216

== ENCOUNTER → 2023-05-27 | Outpatient (CLI) | payer MEDICARE, OTHER, SELFPAY ==
--- NOTE | 2023-05-27 09:52 | ECHOD_ITS ---
Reason For Study: AORTIC INSUFFICIENCY Procedure This was a 2D Doppler, Color Flow transthoracic echocardiogram. Exam performed in department. Left Ventricle Normal LV size. Left ventricular systolic function is normal. The estimated ejection fraction is 60 %. Stage 1 diastolic dysfunction. No regional wall motion abnormalities noted. Right Ventricle Normal RV size. Normal systolic function. Atria Normal left atrium. Normal right atrium. Mitral Valve Normal mitral valve. Tricuspid Valve Normal tricuspid valve. Mild (1+) tricuspid valve insufficiency. Pulmonary artery systolic pressure is 30 mmHg. Aortic Valve Normal aortic valve. Trisinus/trileaflet aortic valve. Mild (1+) aortic valve insufficiency. Pulmonic Valve Normal pulmonic valve. Great Vessels Normal aortic root. The pulmonary artery is normal size. Normal inferior vena cava. Pericardium/Pleural No pericardial effusion. MMode/2D Measurements & Calculations LVIDd: 5.1 cm IVSd: 1.0 cm LVOT diam: 2.1 cm LVIDs: 3.1 cm LVPWd: 0.97 cm LVOT area: 3.3 cm2 RVDd: 3.5 cm FS: 38.7 % Ao root diam: 4.2 cm LAV(MOD-bp): 71.2 ml LVAd ap4: 26.8 cm2 LAV(MOD-bp) Indexed: 39.1 ml/m2 LVLd ap4: 7.7 cm LAV(MOD-sp2): 85.2 ml EDV(MOD-sp4): 76.0 ml LAV(MOD-sp4): 59.1 ml EDV(sp4-el): 79.1 ml LVAs ap4: 14.5 cm2 LVLs ap4: 6.2 cm ESV(MOD-sp4): 28.9 ml ESV(sp4-el): 28.8 ml EF(MOD-sp4): 61.9 % EF(sp4-el): 63.5 % LVAd ap2: 26.8 cm2 SV(MOD-sp4): 47.0 ml SV(MOD-sp2): 45.7 ml LVLd ap2: 7.9 cm EDV(MOD-sp2): 73.0 ml EDV(sp2-el): 76.5 ml LVAs ap2: 14.6 cm2 LVLs ap2: 6.4 cm ESV(MOD-sp2): 27.4 ml ESV(sp2-el): 27.9 ml EF(MOD-sp2): 62.6 % SV(sp4-el): 50.3 ml LA dimension(2D): 3.9 cm LA A4 area: 21.9 cm2 RA A4 area: 14.9 cm2 TAPSE: 2.2 cm Time Measurements MV dec time: 0.28 sec Doppler Measurements & Calculations MV E max justice: 119.8 cm/sec Lat Peak E' Justice: 8.2 cm/sec Med Peak E' Justice: 6.6 cm/sec MV A max justice: 134.8 cm/sec E/E' lat: 14.5 E/E' med: 18.1 MV E/A: 0.89 Ao V2 max: 138.2 cm/sec AI max justice: 430.1 cm/sec MV dec slope: 423.1 cm/sec2 Ao max P.6 mmHg AI max P.7 mmHg Ao V2 mean: 92.1 cm/sec Ao mean P.9 mmHg AI dec slope: 255.5 cm/sec2 Ao V2 VTI: 32.6 cm AI P1/2t: 493.0 msec AV (velocity ratio): 0.71 GIA(I,D): 2.4 cm2 GIA(V,D): 2.3 cm2 LV V1 max: 95.2 cm/sec SV(LVOT): 77.9 ml PA V2 max: 91.0 cm/sec LV V1 max P.6 mmHg PA max PG (full): 1.6 mmHg LV V1 mean P.0 mmHg LV V1 mean: 65.1 cm/sec LV V1 VTI: 23.3 cm PI end-d justice: 67.8 cm/sec TR max justice: 252.7 cm/sec TR max P.5 mmHg ECHO/Echo Complete Interpretation Summary Normal LV size. Left ventricular systolic function is normal. The estimated ejection fraction is 60 %. Stage 1 diastolic dysfunction. Mild (1+) aortic valve insufficiency. Ordering Physician: Vasquez Gonzalez Referring Physician: Vasquez Gonzalez MD Performed By: Jolene Earl RDCS
== END | disposition home or self-care (01) ==
LOC: CVS 09:47
PROVIDERS: PCP Nurse Practitioner Family; Referring Provider Internal Medicine Cardiovascular Disease; Visit Provider Internal Medicine Cardiovascular Disease
DX: I35.1 Nonrheumatic aortic (valve) insufficiency (principal)
CPT/HCPCS: 93306

== ENCOUNTER → 2023-07-17 | Outpatient (CLI) | payer MEDICARE, OTHER, SELFPAY ==
--- NOTE | 2023-07-17 13:40 | RAD_ITS ---
EXAM: XR LUMBOSACRAL SPINE, 4 OR 5 VIEWS CLINICAL INDICATION: LUMBAR BACK PAIN TECHNIQUE: Frontal, lateral and bilateral oblique views of the lumbar spine. COMPARISON: No relevant prior studies available. FINDINGS: VERTEBRAE: Mild dextroscoliosis of lumbar spine. Mild degenerative retrolisthesis of L3 on L4. Bilateral L4-L5 and bilateral L5-S1 degenerative facet arthropathy. DISC SPACES: Pronounced degenerative disc space narrowing with endplate sclerosis and degenerative vacuum phenomenon at L4-L5 disc space level. Moderate L5-S1 disc space height narrowing with degenerative vacuum phenomenon. Degenerative vacuum phenomenon at L1-L2, L2-L3 and L3-L4 disc space levels. GASTROINTESTINAL TRACT: Unremarkable as visualized. Included bowel gas pattern is non-obstructive. RAD/L/S Spine Min 4 Views IMPRESSION: 1. Mild degenerative retrolisthesis of L3 on L4. 2. Bilateral L4-L5 and L5-S1 degenerative facet arthropathy. 3. No acute osseous abnormality of the lumbar spine. Electronically Signed: Danny Earl MD at 16:09 EST ,
== END | disposition home or self-care (01) ==
LOC: RAD 13:32
PROVIDERS: PCP Nurse Practitioner Family; Referring Provider Nurse Practitioner Family; Visit Provider Nurse Practitioner Family
DX: M54.50 Low back pain, unspecified (principal)
CPT/HCPCS: 72110

== ENCOUNTER → 2024-01-05 | Outpatient (CLI) | payer MEDICARE, OTHER, SELFPAY ==
--- NOTE | 2024-01-05 09:09 | EKG12_ITS ---
Test Reason : PREOP Blood Pressure : / mmHG Vent. Rate : 063 BPM Atrial Rate : 063 BPM P-R Int : 138 ms QRS Dur : 086 ms QT Int : 394 ms P-R-T Axes : 000 -14 021 degrees QTc Int : 403 ms Normal sinus rhythm Normal ECG Confirmed by ANTONIA DEVINE, TRACEY ([id number]), news assignment editor JOHN HODGE ([id number]) on 01/08/2024 10:13:06 AM Referred By: Allan Salter Confirmed By:TERRY KNIGHT MD
--- NOTE | 2024-01-05 09:20 | RAD_ITS ---
INDICATION: PRE OP EXAMINATION/TECHNIQUE: X-RAY - XR Chest 2 Views COMPARISON: Prior study dated: 07/05/2015 FINDINGS: LINES/DEVICES: None. LUNGS: No consolidation, edema or effusion. No pneumothorax. MEDIASTINUM AND CARDIOVASCULAR STRUCTURES: Cardiac silhouette not enlarged. Tortuosity of the thoracic aorta. Central airways and mediastinal contour are unremarkable. BONES AND SOFT TISSUES: Unremarkable. RAD/Chest PA and Lateral IMPRESSION: No radiographic evidence of acute cardiopulmonary disease. Electronically Signed: Jarrett Bai MD at 9:57 EDT ,
== END | disposition home or self-care (01) ==
LOC: PSN 09:08
PROVIDERS: PCP Nurse Practitioner Family; Referring Provider Orthopaedic Surgery; Visit Provider Orthopaedic Surgery
DX: Z01.810 Encounter for preprocedural cardiovascular examination (principal); M48.061 Spinal stenosis, lumbar region without neurogenic claudication; M54.16 Radiculopathy, lumbar region; M47.896 Other spondylosis, lumbar region; M51.36 Other intervertebral disc degeneration, lumbar region; M46.98 Unspecified inflammatory spondylopathy, sacral and sacrococcygeal region; M41.86 Other forms of scoliosis, lumbar region
CPT/HCPCS: 71046; 93005

== ENCOUNTER → 2024-01-08 | Outpatient (CLI) | payer MEDICARE, OTHER, SELFPAY ==
[2024-01-08 10:57] LABS: Absolute Lymphocyte Count 0.42 X10^3/uL (0.83-4.51); Absolute Neutrophil Count 1.6 X10^3/uL (2.0-7.7); Basophil# 0.01 X10^3/uL; Basophil% 0.5 % (0-1); Eosinophil# 0.05 X10^3/uL; Eosinophils% 2.3 % (0-5); Hematocrit 38.7 % (40-54); Hemoglobin 12.8 g/dL (13.0-16.5); Lymphocyte # 0.42 X10^3/ul (0.83-4.51); Lymphocyte % 19.1 % (19-41); Mean Corp Hgb Conc 33.1 g/dL (32-36); Mean Corpuscular Hgb 35.2 pg (27.0-32.0); Mean Corpuscular Volume 106.3 fL (80-94); Mean Platelet Vol. 9.3 fl (6.2-12.0); Monocyte# 0.07 X10^3/uL; Monocyte% 3.2 % (0-10); NRBC Flagged by Analyzer 0 % (0-5); Neutrophil # 1.64 X10^3/uL (2.7-7.7); Neutrophil % 74.4 % (47-70); POSITIVE DIFFERENTIAL YES; Platelet Count 208 K/mm3 (150-450); RBC Distribution Width CV 13.5 % (11.6-14.6); RBC Distribution Width SD 53.3 fl (35.1-43.9); Red Blood Count 3.64 M/mm3 (4.6-6.2); White Blood Count 2.2 K/mm3 (4.4-11.0)
[2024-01-08 11:01] LABS: Differential Indicated SCAN CRITERIA MET
[2024-01-08 11:23] LABS: Anion Gap 5 (5-15); BUN 27 mg/dL (7-18); BUN/Creat Ratio 19.6 RATIO (10-20); Calcium,Total 8.9 mg/dL (8.5-10.1); Chloride 111 mmol/L (98-107); Creatinine, Serum 1.38 mg/dL (0.70-1.30); EST Glomerular Filtration Rate 52 mL/min (>60); Est Glom Filt Rate - Afr Amer 63 mL/min (>60); Glucose 119 mg/dL (74-106); Potassium 4.8 mmol/L (3.5-5.1); Prothrombin Time (Protime)PT. 12.7 SECONDS (11.7-14.9); Sodium Level 138 mmol/L (136-145)
[2024-01-08 11:24] LABS: Partial Thromboplast Time 24.2 Seconds (24.1-36.2)
[2024-01-11 13:42] LABS: Pathologist Review Reviewed
== END | disposition home or self-care (01) ==
LOC: LAB 10:21
PROVIDERS: PCP Nurse Practitioner Family; Referring Provider Orthopaedic Surgery; Visit Provider Orthopaedic Surgery
DX: Z01.818 Encounter for other preprocedural examination (principal)
CPT/HCPCS: 36415; 80048; 85025; 85610; 85730

== ENCOUNTER 2024-02-11 10:09 | Observation (INO) | payer MEDICARE, OTHER, SELFPAY ==
[2024-02-11] VITALS (14 sets, daily range): BP systolic 117–151; BP diastolic 57–78; PULSE 54–96; RESP 14–20; TEMP 35.7–36.7; O2SAT 92–98; BMI 22.4
--- NOTE | 2024-02-11 08:54 | PCM.PRE.AN2 ---
ASA Classification* ASA Classification ASA Classification: 3 Assessment & Plan Anesthesia* Anesthesia Assessment Anesthesia Assessment: Discussed sedation and/or anesthesia options, risks, benefits, and alternatives with patient/parents/legal guardian/POA. Questions invited. The patient/parents/legal guardian/POA seems to understand and agrees to proceed with anesthesia plan. Reviewed the physical assessment, medical history, allergy history and patient home medications list prior to surgery/procedure/anesthetic and documented any changes. Performed airway and anesthesia risk assessments. Anesthesia Type Anesthesia Type: General (see written pre anesthesia record for full assessment) Anesthesia Focused Assessment* Airway Assessment Mouth opens: >3 cm Mallampati Score: II Focused Labs Anesthesia Preop lab: CBC WBC 2.2 K/mm3 (4.4-11.0) L 01/08/24 10:32 RBC 3.64 M/mm3 (4.6-6.2) L 01/08/24 10:32 Hgb 12.8 g/dL (13.0-16.5) L 01/08/24 10:32 Hct 38.7 % (40-54) L 01/08/24 10:32 Plt Count 208 K/mm3 (150-450) 01/08/24 10:32 CHEMISTRY Potassium 4.8 mmol/L (3.5-5.1) 01/08/24 10:32 Sodium 138 mmol/L (136-145) 01/08/24 10:32 Magnesium 2.1 mg/dL (1.6-2.6) 11/17/22 03:05 BUN 27 mg/dL (7-18) H 01/08/24 10:32 Creatinine 1.38 mg/dL (0.70-1.30) H 01/08/24 10:32 Glucose 119 mg/dL (74-106) H 01/08/24 10:32 TSH 2.840 uIU/mL (0.358-3.740) 02/10/24 14:49 COAG PT 12.7 SECONDS (11.7-14.9) 01/08/24 10:32 Pre-Assessment Diagnosis/Proposed Procedure Planned Operative Procedure(s): THORACIC 9- THORACIC 10 LAMINECTOMY, IMPLANTATION OF PERMANANT SPINAL CORD STIMULATOR LEAD AND GENERATOR Anesthesia History 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 When Was Last Pacemaker Check QUESTION #4 FULL TEXT: You/Your Family Experience fever (hyperthermia) with Anesthesia Last Oral Intake Last Oral intake: Last Oral Intake NPO since Meds taken in AM with sips of water? Meds patient instructed to take am of surgery PONV PONV - tool setter apprentice: PONV - tool setter apprentice Female No 02/09/24 12:54 HX of Motion Sickness No 02/09/24 12:54 HX of N/V After Surgery No 02/09/24 12:54 Non-Smoker Yes 02/09/24 12:54 Duration of Surgery greater Yes 02/09/24 12:54 than 60 minutes Number of Risk Factors 2 02/09/24 12:54 PONV Score Moderate Risk 02/09/24 12:54 Height & Weight Height & Weight: Anesthesia: Height & Weight Height 5 ft 7 in 02/10/24 08:56 Respiratory Assessment Respiratory Assessment - tool setter apprentice: Respiratory Tract Infection Hx - tool setter apprentice Hx Respiratory Tract Infection No 02/09/24 12:54 STOP Sleep Apnea STOP Sleep Apnea - tool setter apprentice: STOP Sleep Apnea - tool setter apprentice Hx Hypertension Yes: CONTROLLED WITH MED 02/09/24 12:54 Hx Sleep Apnea No 02/09/24 12:54 CPAP No 09/07/14 09:33 BIPAP No: wore bipap 6years ago 09/07/14 09:33 Do you snore loudly (louder No 02/09/24 12:54 than talking or can be heard Do you often feel tired/ No 02/09/24 12:54 fatigued/ sleepy during daytime? Has anyone observed you stop No 02/09/24 12:54 breathing during sleep? STOP Results Negative 02/09/24 12:54 QUESTION #5 FULL TEXT : Do you snore loudly (louder than talking or can be heard through closed doors)? Tobacco Use History Tobacco Use History - tool setter apprentice: Tobacco Use History - tool setter apprentice Tobacco Use Smoking Status Never smoker 02/09/24 12:54 Hx Tobacco Use No 02/09/24 12:54 Years Smoking Packs Smoked per Day Smoking Cessation Date was within the last 15 years Hx Smoking Cessation Date Hx Smoking Cessation Counseling Hematologic Medial History Hematologic Hx - tool setter apprentice: Hematologic Medical Hx - cuff setter Hx of Blood Transfusion No 02/09/24 12:54 Hx of Transfusion in last 3 No 02/09/24 12:54 Months Date of Last Transfusion (if within last 3 months) Ever experience any problems No 02/09/24 12:54 with transfusion(s)? Specify any problems Hx of Preganancy in last 3 N/A 02/09/24 12:54 Months Nurse Filling Out Transfusion NBUCHER 02/09/24 12:54 & Questions: Date: 02/09/24 02/09/24 12:54 Time: 12:56 02/09/24 12:54 Patient unable to answer at this time (ie. confused, unrespo /Reproduction History /Reproductive History - tool setter apprentice: /Reproductive Hx- tool setter apprentice Hx Now No 02/09/24 12:54 Gestational Age (in weeks): EDC: Hx Hx Para Hx Section SAB No 02/09/24 12:54 Active Medications Active Medications: Current Medications Generic Name Dose Route Start Last Admin Trade Name Freq PRN Reason Stop Dose Admin Cefazolin Sodium 2 gm/ Sodium 110 mls @ 150 mls/hr 02/11/24 09:45 Chloride IV 02/11/24 10:28 PREOP ONE Lactated Ringer's 1,000 mls @ 15 mls/hr 02/11/24 08:15 IV .Q48H JIMENA PFSH Medical History Wears hearing aid Loss of hearing Wears glasses Cancer Prostate disease High cholesterol History of GI bleed Non-smoker History of echocardiogram Hypertension Cardiology follow-up encounter History of atrial fibrillation Paroxysmal atrial flutter Hemorrhagic shock Leukemia GI bleed Hypothyroidism Hairy cell leukemia, in remission BPH (benign prostatic hyperplasia) Osteoarthritis Essential (primary) hypertension Nonrheumatic aortic (valve) insufficiency Cardiac arrest Hyperlipidemia Paroxysmal atrial fibrillation Home Medications ?Medication ?Instructions ?Recorded ?Last Taken ?Type carvedilol 25 mg tablet 25 mg PO BID 06/28/19 Unknown History cholecalciferol (vitamin D3) 25 25 mcg PO DAILY 05/22/20 Unknown History mcg (1,000 unit) capsule pantoprazole 40 mg tablet,delayed 40 mg PO BID 09/13/21 Unknown History release valsartan 80 mg tablet 80 mg PO DAILY #90 tabs 04/28/23 Unknown Rx atorvastatin 10 mg tablet 10 mg PO QDAY 02/10/24 Unknown History tamsulosin 0.4 mg capsule 0.4 mg PO QHS 02/10/24 Unknown History Allergy/AdvReac Type Severity Reaction Status Date / Time allopurinol Allergy Swelling Verified 02/10/24 14:17 ciprofloxacin (From Cipro) Allergy Unknown Verified 02/10/24 14:17 ciprofloxacin HCl (From Allergy Unknown Verified 02/10/24 14:17 Cipro) Iodinated Contrast Media Allergy Swelling Verified 02/10/24 14:17 (iodine contrast) sulfamethoxazole (From Allergy Unknown Verified 02/10/24 14:17 Bactrim) trimethoprim (From Bactrim) Allergy Unknown Verified 02/10/24 14:17 Surgical History History of esophagogastroduodenoscopy (EGD) History of colonoscopy History of tonsillectomy H/O splenectomy Social History Smoking Status: Never smoker alcohol intake: never caffeine: Yes Type: coffee Number of servings: 2 what type of physical activity do you participate in: none Review of Systems (Anesthesia) ROS Narrative System reviewed and no additional complaints, except as documented.
[2024-02-11] MEDS: Lactated Ringers 1,000 ML 15 ML IV (09:08)
--- NOTE | 2024-02-11 10:01 | OP.PCM_ITS ---
Report of Operation Date of Procedure: 02/11/24 Description of Surgical Findings:: REPORT OF OPERATION PREOPERATIVE DIAGNOSES: 1. Lumbar stenosis, spondylosis. 2. Chronic back pain POSTOPERATIVE DIAGNOSES: 1. Lumbar stenosis, spondylosis. 2. Chronic back pain PROCEDURE PERFORMED: 1. T9-10 partial bilateral laminectomies. 2. Dorsal column stimulator paddle lead placement. 3. Subcutaneous placement of dorsal column stimulator generator. 4. One hour of complex programming postoperatively. STATEMENT OF MEDICAL NECESSITY: This patient is a 88-year-old male with intractable back and leg pain. The patient has opted for treatment of operative intervention, understanding the risks to include, damage to nerves, arteries and veins, possibility of continued pain, need for additional surgery, pulmonary embolism, heart attack, stroke, or . DESCRIPTION OF PROCEDURE: The patient was identified in the preoperative holding area. There, the patient received the preoperative IV antibotics and then transferred to the operating suite. Once in the operating suite, after general endotracheal anesthesia was established, the patient was transferred to the [place] operating table in the prone position. All bony prominences were padded accordingly. The thoracolumbar spine was prepped and draped in standard surgical fashion. Incision was made over the thoracolumbar spine. An incision was centered over the T9-10 interlaminar space, taken down to the thoracic fascia. It was then divided and subperiosteal dissection was taken down to the level of the bilateral T9-10 facet joints. Partial bilateral laminectomies were performed at the T9-10 interspace, with part of the inferior lamina of T9, and superior lamina of T10. At this point the paddle lead was placed spanning from the top of T8. It was then anchored to the fascia using standard anchors with a 0 silk suture. A second incision was made as a battery pocket in the right posterior iliolumbar region. Wires from the stimulator were then passed subcutaneously with a passing device to the battery pocket and then connected to a new generator battery. Both incisions were then irrigated and closed with #1 vicryl for the fascia, 2-0 vicryl for subcutaneous, and 2-0 nylon for skin. Sterile dressing was applied with 4 x 4, ABD, and tape. Sponge, instrument, and needle counts were correct at the end of the case. The patient was extubated, taken to PACU without incident. Then one hour was spent with complex programming when the patient recovered Surgeon: Allan Salter Type of Anesthesia: General Estimated Blood Loss (mL): 10 cc Fluids Replaced: 1100 cc Grafts/Implants Used: [employer] Complications None Admit VTE Documentation VTE Present on Admission: No
--- NOTE | 2024-02-11 10:01 | PCM.PN.ORT ---
Subjective Subjective Seen and examined postop. Resting comfortably. Pain controlled. No complaints Objective Data Objective Data Vital Signs: Vital Signs Temp Pulse Resp BP Pulse Ox O2 Del Method 98.1 F 60 20 H 148/77 H 98 Room Air 02/11/24 08:59 02/11/24 08:59 02/11/24 08:59 02/11/24 08:59 02/11/24 08:59 02/11/24 08:59 Oxygen Delivery Method Room Air Weight: 143 lb 4.807 oz Body Mass Index (BMI) 22.4 Lab / Micro Data Labs: Laboratory Results - last 24 hr 02/10/24 14:49: TSH 2.840 02/11/24 08:48: TSH 2.990 Physical Exam Const alert, oriented x3 and no apparent distress General Appearance: cooperative, comfortable and well kempt HEENT normocephalic and head/scalp atraumatic Eyes EOMs intact bilaterally and conjunctivae normal Neck full ROM General: normal visual inspection Chest inspection of chest normal and palpation of chest normal Resp normal respiratory effort and normal air movement Cardio regular rate, regular rhythm and peripheral pulses 2+ throughout GI soft to palpation, non-tender and non-distended Back/Spine Back/Spine Narrative: Dressings clean dry and intact Cervical Spine: cervical ROM normal Thoracic Spine / Upper Back: normal to inspection Lumbar Spine / Lower Back: normal to inspection Extremity normal to inspection, full ROM, normal capillary refill, no clubbing, cyanosis or edema and no calf tenderness Skin no rashes or lesions noted General Skin Exam: no breakdown Neuro oriented x3, CN's II-XII intact bilaterally, moves all extremities, no focal motor deficits, no sensory deficits noted and deep tendon reflexes 2+ bilaterally Motor Exam: strength 5/5 throughout and muscle tone normal throughout Assessment & Plan Assessment/Plan (1) Lumbar spondylosis: PLAN: Okay to admit See orders Discharge planning, likely home tomorrow
--- NOTE | 2024-02-11 10:03 | PCM.DC.SUM ---
Providers Date of Admission: 02/11/24 Primary Care Physician: VIMAL Gardiner Diagnosis Discharge Diagnosis (1) Lumbar spondylosis: Status: Acute Code(s): M47.816 - Spondylosis without myelopathy or radiculopathy, lumbar region Plan: Okay to admit See orders Discharge planning, likely home tomorrow Medications at Discharge Home Medications carvedilol 25 mg tablet 25 mg PO BID 06/28/19 cholecalciferol (vitamin D3) 25 mcg (1,000 unit) capsule 25 mcg PO DAILY 05/22/20 pantoprazole 40 mg tablet,delayed release 40 mg PO BID 09/13/21 valsartan 80 mg tablet 80 mg PO DAILY #90 tabs 04/28/23 atorvastatin 10 mg tablet 10 mg PO QDAY 02/10/24 tamsulosin 0.4 mg capsule 0.4 mg PO QHS 02/10/24 hydrocodone-acetaminophen 5-325mg 5mg-325mg 1 tab PO Q6H 7 days #28 tabs 02/11/24 Hospital Course Operations - (T9-10 laminectomy, implantation of permanent spinal cord stimulator lead and generator) Summary of Care Provided Minutes Spent on Discharge: 15 Hospital Course: The patient is an 88-year-old male who underwent implantation of permanent spinal cord stimulator lead and generator on 02/11/2024. He was subsequently admitted. The hospitalist was consulted for medical management. The patient progressed well. His pain was controlled and he was mobilizing well. No significant medical issues were reported. He was subsequently discharged home on 02/12/2024 to follow-up with Dr. Salter in 3 weeks Physical Exam Const alert, oriented x3 and no apparent distress General Appearance: cooperative, comfortable and well kempt Neck full ROM General: normal visual inspection Resp normal respiratory effort and normal air movement Effort and Inspection: able to speak in complete sentences Cardio regular rate and peripheral pulses 2+ throughout GI soft to palpation, non-tender and non-distended Back/Spine Back/Spine Narrative: Dressings clean dry and intact. Incision is well-approximated with interrupted sutures in place Cervical Spine: cervical ROM normal Thoracic Spine / Upper Back: normal to inspection Lumbar Spine / Lower Back: normal to inspection Extremity normal to inspection, full ROM, normal capillary refill, no clubbing, cyanosis or edema and no calf tenderness Skin no rashes or lesions noted General Skin Exam: no breakdown Neuro oriented x3, CN's II-XII intact bilaterally, moves all extremities, no focal motor deficits, no sensory deficits noted and deep tendon reflexes 2+ bilaterally Motor Exam: strength 5/5 throughout and muscle tone normal throughout Weight / BMI Weight Weight: 143 lb 4.807 oz Body Mass Index (BMI) 22.4 ABG / Lab / Microbiology Data Laboratory: Laboratory Results - last 24 hr 02/10/24 14:49: TSH 2.840 02/11/24 08:48: TSH 2.990 D/C Instructions Discharge Diet: No restrictions Additional Activity Instructions: No repetitive bending twisting or lifting more than 5 pounds Call your doctor if your incision/area has: Continuous Slow Oozing, Sudden Increased Bleeding, Increased Pain/ Swelling, Increased Redness, Foul Smelling Discharge and Swelling at the incision site Call your doctor if you observe: Fever of 101 or Higher, Coldness, Increased Pain, Numbness or Tingling, Change in Color, Inability to urinate, Inability to have a bowel movement, Using more than 1 pad per hour, Shortness of breath, Dizziness, Fainting spells, Swelling in the ankles, Chest pain, Prolonged hiccupping, Increased palpitations (irregular heartbeat), Calf discomfort and Uncontrolled pain Additional Dressing/Incision Instructions: Change dressings daily with gauze and tape Additional Instructions: 1. During your procedure, you received sedation through your IV. Please follow these instructions for the next 24 hours: Do not drive a motor vehicle, do not drink any alcoholic beverages, and do not sign any legal documents or make personal or business decisions. A responsible adult should stay with you at least 6 hours after the procedure. 2. Keep your surgical site/incision clean and the dressing dry and intact. You may sponge bathe, but no showering or sitting in a bathtub during your trial or for one week after the permanent implant. You may use an ice pack at the surgical site to reduce any swelling or discomfort. 3. Monitor the incision site for any signs or symptoms of infection. Watch for redness, excessive swelling or drainage, or continued pain at the incision site after 3 days. Contact your physician immediately for a fever, chills or a temperature of 101.5? F or greater. 4. Take your medication exactly as prescribed by your physician. Do not attempt to wean yourself off any of your medications even though your pain is improving. This process needs to be carefully monitored by your doctor. Take any antibiotics prescribed exactly as directed and until they are gone. 5. Avoid stretching, bending, pulling, twisting or any sudden movements. Do not bend or twist at the waist. Do not raise your arms above your head; however, you may brush your hair or scratch your head, but nothing higher than that. Any movements higher than that could cause your electrode wires to move from their current position. No not lie on your stomach. Do not bend at the waist to put your shoes on; you must lift your legs up to do this. 6. No lifting greater than 5 pounds. A gallon of milk weighs more than 5 pounds, so you may not lift this. Try to be careful. Any falls could dislodge the leads. 7. Do not operate a motor vehicle, equipment or a power tool while your stimulator is on. If you need to use any equipment, you must turn your stimulator off first. As a passenger in a motor vehicle, you may use your stimulator. 8. Do not have any manipulation done by a chiropractor or any other physician without first consulting with the physician who placed your spinal cord stimulator. 9. Without movement, you may note changes in the intensity of the stimulator. For example, you may notice a different stimulation when you are standing than when you are sitting or lying down. This is normal the first few weeks following the implant and will stabilize over time. 10. Please contact our office if you are even scheduled for a CT scan or an MRI. 11. Please call us if you have any questions, problems or concerns. Please Follow Up With: Allan Salter DO When: 3 weeks Meaningful Use Info Meaningful Use Meaningful Use Diagnoses (Choose all that apply): None applicable Ischemic Stroke Statin Dosing Therapy Reference: STATIN DOSE THERAPY REFERENCE: * Patients > 75 years receive moderate or high dose statin therapy. * Patients 75 years or YOUNGER should receive HIGH intensity statin dose unless contraindicated. You will be required to document reason for non-treatment if statin daily dose does not meet guidelines. HIGH DOSE STATIN THERAPY DAILY Atorvastatin > than or = to 40 mg Rosuvastatin > than or = to 20 mg Amlodipine + Atorvastatin > than or = to 2.5/40 mg Ezetimibe + Simvastatin 10/80 mg Simvastatin 80mg Discharge Plan Admission Admit Date/Time: 02/11/24 10:09 Attending Provider: Allan Salter Primary Care Provider: Bisi Zarate Consulting Providers: Lázaro Kearns; Nena Rosen; Margie Coker; Emerald Pradhan; Brian Gardner; Brian Santiago; Win Nguyen; Bailey Hernandez; Rafa Ponce; Sandy Henriquez; Frank Jackson; Vera Keys; Filipe Niño; Salvador Rivero; Arielle Abel; Don Mariee; Hilton Goode Instructions Additional Instructions / Restrictions: 1. During your procedure, you received sedation through your IV. Please follow these instructions for the next 24 hours: Do not drive a motor vehicle, do not drink any alcoholic beverages, and do not sign any legal documents or make personal or business decisions. A responsible adult should stay with you at least 6 hours after the procedure. 2. Keep your surgical site/incision clean and the dressing dry and intact. You may sponge bathe, but no showering or sitting in a bathtub during your trial or for one week after the permanent implant. You may use an ice pack at the surgical site to reduce any swelling or discomfort. 3. Monitor the incision site for any signs or symptoms of infection. Watch for redness, excessive swelling or drainage, or continued pain at the incision site after 3 days. Contact your physician immediately for a fever, chills or a temperature of 101.5? F or greater. 4. Take your medication exactly as prescribed by your physician. Do not attempt to wean yourself off any of your medications even though your pain is improving. This process needs to be carefully monitored by your doctor. Take any antibiotics prescribed exactly as directed and until they are gone. 5. Avoid stretching, bending, pulling, twisting or any sudden movements. Do not bend or twist at the waist. Do not raise your arms above your head; however, you may brush your hair or scratch your head, but nothing higher than that. Any movements higher than that could cause your electrode wires to move from their current position. No not lie on your stomach. Do not bend at the waist to put your shoes on; you must lift your legs up to do this. 6. No lifting greater than 5 pounds. A gallon of milk weighs more than 5 pounds, so you may not lift this. Try to be careful. Any falls could dislodge the leads. 7. Do not operate a motor vehicle, equipment or a power tool while your stimulator is on. If you need to use any equipment, you must turn your stimulator off first. As a passenger in a motor vehicle, you may use your stimulator. 8. Do not have any manipulation done by a chiropractor or any other physician without first consulting with the physician who placed your spinal cord stimulator. 9. Without movement, you may note changes in the intensity of the stimulator. For example, you may notice a different stimulation when you are standing than when you are sitting or lying down. This is normal the first few weeks following the implant and will stabilize over time. 10. Please contact our office if you are even scheduled for a CT scan or an MRI. 11. Please call us if you have any questions, problems or concerns. Discharge Orders/Prescriptions Prescriptions: New hydrocodone-acetaminophen 5-325 mg tablet 1 tab PO Q6H 7 Days Qty: 28 0RF Continued carvedilol 25 mg tablet 25 mg PO BID Patient Comments: TAKE 1 TABLET BY MOUTH TWICE A DAY WITH FOOD cholecalciferol (vitamin D3) 25 mcg (1,000 unit) capsule 25 mcg PO DAILY valsartan 80 mg tablet 80 mg PO DAILY Qty: 90 3RF tamsulosin 0.4 mg capsule 0.4 mg PO QHS atorvastatin 10 mg tablet 10 mg PO QDAY pantoprazole 40 mg tablet,delayed release (DR/EC) 40 mg PO BID Patient Comments: TAKE 1 TABLET BY MOUTH TWICE A DAY Referrals / Follow Up: Allan Salter DO [Med Staff - Active Staff] - Bisi Zarate NP-C [Primary Care Provider] - Disposition Disposition (needs filled in before D/C Order can be placed): Home, Self Care
[2024-02-11] MEDS: Cefazolin 2 GM in 0.9% Normal Saline (100mL Bag) 100 ML IV (10:20)
--- NOTE | 2024-02-11 10:39 | RAD_ITS ---
PROCEDURE: Fluoroscopic services for spinal cord stimulator placement. DATE OF EXAMINATION: February 11, 2024. INDICATION: Male, 88 years old. Chronic back pain. FLUOROSCOPY TIME (if supplied): (16 seconds) minutes/seconds. 2.42 mGy. RAD/Thoracic Spine 2 Views IMPRESSION: Intraoperative fluoroscopic services provided for spinal cord stimulator placement. Electronically Signed: Brayden Sánchez MD at 11:58 EDT ,
[2024-02-11] MEDS: THROMBIN (RECOMBINANT) 20,000 UNIT VIAL 20000 UNIT TOPICAL (11:00)
[2024-02-11] MEDS: Bupivacaine 0.25% 30 ML Vial (11:44)
--- NOTE | 2024-02-11 12:08 | PCM.POST.ANE ---
Anesthesia: Postop Eval I Current Vital Signs Temperature: 96.8 F Pulse Rate: 69 Blood Pressure: 147/78 Respiratory Rate: 20 Pulse Ox: 95 Assessment Airway patent: Yes Spontaneous unlabored respirations: Yes nausea: No Vomiting: No Anesthesia Complication: No Fluid Hydration Crystalloid volume administer (ml): 1,100 Total IV fluid infused: 1,100 Progress Note Anesthesia document: Postop Eval 1 completed: Yes
--- NOTE | 2024-02-11 13:47 | POSTOPAN2_ITS ---
Anesthesia Postop Eval I Sum Postop Eval Completion status Anesthesia document: Postop Eval 1 completed: Yes Anesthesia Postop Eval I Summary Anesthesia Postop Eval I Summary: Anesthesia Postop Eval I: Assessment Summary Airway patent Yes 02/11/24 12:08 GARMENT [email or web address] Spontaneous unlabored Yes 02/11/24 12:08 GARMENT WORKER.CSIR respirations Mental status nausea No 02/11/24 12:08 GARMENT WORKER.CSIR Vomiting No 02/11/24 12:08 GARMENT WORKER.CSIR Anesthesia Postop Eval I: Fluid Summary Crystalloid volume administer 1,100 02/11/24 12:08 GARMENT WORKER.CSIR (ml) Colloids volume administered ( ml) Blood Product volume administered (ml) Total IV fluid infused 1,100 02/11/24 12:08 GARMENT WORKER.CSIR Anesthesia Postop Eval I: Summary Notes Anesthesia Complication No 02/11/24 12:08 GARMENT WORKER.CSIR Anesthesia Complication Comment: Post-operative progress note Anesthesia: Postop Eval II Evaluation Mental status: Awake Pain Level: 0 nausea: No Vomiting: No
--- NOTE | 2024-02-11 13:47 | PCM.POSTANE2 ---
Anesthesia Postop Eval I Sum Postop Eval Completion status Anesthesia document: Postop Eval 1 completed: Yes Anesthesia Postop Eval I Summary Anesthesia Postop Eval I Summary: Anesthesia Postop Eval I: Assessment Summary Airway patent Yes 02/11/24 12:08 REGISTERED VASCULAR TECHNOLOGIST (RVT).CSIR Spontaneous unlabored Yes 02/11/24 12:08 REGISTERED VASCULAR TECHNOLOGIST (RVT).CSIR respirations Mental status nausea No 02/11/24 12:08 REGISTERED VASCULAR TECHNOLOGIST (RVT).CSIR Vomiting No 02/11/24 12:08 REGISTERED VASCULAR TECHNOLOGIST (RVT).CSIR Anesthesia Postop Eval I: Fluid Summary Crystalloid volume administer 1,100 02/11/24 12:08 REGISTERED VASCULAR TECHNOLOGIST (RVT).CSIR (ml) Colloids volume administered ( ml) Blood Product volume administered (ml) Total IV fluid infused 1,100 02/11/24 12:08 REGISTERED VASCULAR TECHNOLOGIST (RVT).CSIR Anesthesia Postop Eval I: Summary Notes Anesthesia Complication No 02/11/24 12:08 REGISTERED VASCULAR TECHNOLOGIST (RVT).CSIR Anesthesia Complication Comment: Post-operative progress note Anesthesia: Postop Eval II Evaluation Mental status: Awake Pain Level: 0 nausea: No Vomiting: No
--- NOTE | 2024-02-11 16:13 | PN_ITS ---
Subjective Subjective Patient is an 88-year-old male with a past medical history as outlined was admitted to the service of spine surgery for insertion of permanent spine stimulator. He has a history of intractable back and leg pain due to spinal stenosis. He had had a temporary spine stimulator inserted and this helped with his pain. Patient therefore opted for insertion of permanent spine stimulator. This was done on 02/11/2024 by spine surgery. Hospitalist service was consulted for medical management. He does have a past medical history of hypertension, hyperlipidemia and CLL and also had an episode of A-fib after he suffered a significant GI bleed. At time of review he had a friend by his side. He denied any headache, chest pain, shortness of breath, palpitation, nausea vomiting or any other symptoms. Review of systems otherwise negative. Vitals at time of review were blood pressure 151/76, pulse rate of 59, resp iratory to 14 and temperature of 96.3 Fahrenheit. Was saturating at 97% on 3 L of oxygen by nasal cannula. No CBC or BMP available. Objective Data Objective Data Vital Signs: Vital Signs Temp Pulse Resp BP Pulse Ox O2 Del Method O2 Flow Rate 96.3 F L 59 L 14 151/76 H 97 Nasal Cannula 3 02/11/24 15:15 02/11/24 15:15 02/11/24 15:15 02/11/24 15:15 02/11/24 15:15 02/11/24 15:15 02/11/24 13:00 Oxygen Flow Rate (L/min) 3 Oxygen Delivery Method Nasal Cannula Weight: 143 lb 4.807 oz Body Mass Index (BMI) 22.4 Intake & Output: Intake and Output for Last 24 Hours 02/09/24 02/10/24 02/11/24 23:59 23:59 23:59 Intake Total 1110 / 1110 Output Total 125 / 125 Balance 985 / 985 Lab / Micro Data Labs: Laboratory Results - last 24 hr 02/10/24 14:49: TSH 2.840 02/11/24 08:48: TSH 2.990 Physical Exam Const alert, oriented x3, no apparent distress and well nourished General Appearance: cooperative and well developed HEENT normocephalic, head/scalp atraumatic, moist oral mucous membranes, oropharynx normal and gingiva normal HEENT Narrative: hard of hearing Eyes PERRL and EOMs intact bilaterally Neck no lymphadenopathy and supple Lymph Lymphatic: no lymphadenopathy noted and no lymphedema noted Resp Resp Narrative: Mildly diminished breath sounds bibasilarly. No wheezes or crackles. On 3 L of oxygen by nasal cannula. Cardio regular rate, regular rhythm, S1 normal heart sound, S2 normal heart sound and no murmurs GI normal to inspection, nondistended, normoactive bowel sounds, soft to palpation, non-tender and non-distended Extremity normal capillary refill, no clubbing, cyanosis or edema and no calf tenderness General Extremity: no tenderness to palpation of joints or extremities Skin Skin Narrative: Intact dressing over upper back at the site of implant. Neuro CN's II-XII intact bilaterally, no focal motor deficits, no sensory deficits noted and deep tendon reflexes 2+ bilaterally Motor Exam: strength 5/5 throughout and general weakness Psych thought process normal, cooperative and affect normal Appearance: appropriate Assessment & Plan Assessment/Plan (1) Lumbar spondylosis: (2) Paroxysmal atrial fibrillation: (3) Essential (primary) hypertension: (4) Hyperlipidemia: (5) Leukemia: PLAN: Plan #Lumbar spondylosis * s/p insertion of permanent spinal stimulator * today is POD 0 * management as per primary team spine surgery * incentive spirometry. * #Hypertension: on carvedilol and valsartan. IV hydralazine prn #Hyperlipidemia: on statin #History of CLL: follows up with oncology on outpatient basis. #Paroxysmal afib: had an episode of afib after he had a GI bleed some time ago. On carvedilol. Not on blood thinners due to history of GI bleed. DVT prophylaxis: as per primary service Thank you for the courtesy of the consult. We will continue to follow with you. Charges/Coding Visit Charges Inpatient E&M: 10270 Subs Hosp L2
[2024-02-11] MEDS: Cefazolin 1 GM/50 ML BAG IV (17:56)
[2024-02-11] MEDS: Ensure Surgery 237 ML LIQUID PO (18:00)
[2024-02-11] MEDS: Pantoprazole Sodium 40 MG Tablet PO (21:04)
[2024-02-11] MEDS: Acetaminophen 500 MG Tablet 1000 MG PO (21:04)
[2024-02-11] MEDS: Tamsulosin HCl 0.4 MG Capsule PO (21:05)
[2024-02-11] MEDS: Carvedilol 25 MG Tablet PO (21:09)
[2024-02-12] VITALS (7 sets, daily range): BP systolic 107–129; BP diastolic 54–66; PULSE 59–74; RESP 16–18; TEMP 36.4–36.9; O2SAT 93–95
[2024-02-12] MEDS: Lactated Ringers 1,000 ML 100 ML IV (02:03)
[2024-02-12] MEDS: Cefazolin 1 GM/50 ML BAG IV (02:03)
[2024-02-12] MEDS: Acetaminophen 500 MG Tablet 1000 MG PO (06:00)
[2024-02-12] MEDS: Ensure Surgery 237 ML LIQUID PO (08:06)
[2024-02-12] MEDS: 0.9% Saline Lock 10 ML Syringe IV (08:06)
[2024-02-12] MEDS: Losartan Potassium 25 MG Tablet PO (08:07)
[2024-02-12] MEDS: Carvedilol 25 MG Tablet PO (08:07)
[2024-02-12] MEDS: Atorvastatin Calcium 10 MG Tablet PO (08:08)
[2024-02-12] MEDS: Cholecalciferol (VIT D3) 25 MCG TABLET (1,000 UNITS) PO (08:08)
[2024-02-12] MEDS: Pantoprazole Sodium 40 MG Tablet PO (08:08)
--- NOTE | 2024-02-12 10:14 | PN.HOSP_ITS ---
Reason for Visit Reason for Visit: Diagnoses Leukemia, unspecified not having achieved remission (02/11/24) Hyperlipidemia, unspecified (02/11/24) Essential (primary) hypertension (02/11/24) Paroxysmal atrial fibrillation (02/11/24) Spondylosis without myelopathy or radiculopathy, lumbar region (02/11/24) Encounter for other preprocedural examination (02/11/24) Objective Data Objective Data Vital Signs: Vital Signs Temp Pulse Resp BP Pulse Ox O2 Del Method O2 Flow Rate 97.5 F L 62 16 121/54 H 95 Room Air 2 02/12/24 07:55 02/12/24 07:55 02/12/24 07:55 02/12/24 07:55 02/12/24 07:55 02/12/24 08:00 02/11/24 17:23 Oxygen Flow Rate (L/min) 2 Oxygen Delivery Method Room Air Weight: 143 lb 4.807 oz Body Mass Index (BMI) 22.4 Intake & Output: Intake and Output for Last 24 Hours 02/10/24 02/11/24 02/12/24 23:59 23:59 23:59 Intake Total 1360 / 1360 1574.33 / 1574.33 Output Total 375 / 375 600 / 600 Balance 985 / 985 974.33 / 974.33 Physical Exam Narrative Seen and examined. No acute issues. No chest pain pressure, shortness of breath. Patient had bowel movement. Spontaneously voiding urine. Physical exam General: Alert, Oriented x3, Cooperative HEENT: Atraumatic, PERRLA, EOMI, Normocephalic Oral: No Gingival or Mucosal Lesions/ Ulcerations Neck: Supple, No JVD, Negative Carotid Bruits Chest wall/Lungs: Air entry diminished in bilateral lung bases. No crepitation/rhonchi Cardiovascular: Regular rate, Regular Rhythm, Normal S1, Normal S2, No M/G/R Abdomen: Bowel Sounds Present, Soft, Non Tender, Non-Distended : No dysuria. No renal angle tenderness. No suprapubic tenderness. Extremities: No edema, Capillary Refill Less than 3 Seconds Skin: No rashes, No breakdown Spine: Lumbar surgical dressing is dry. No hematoma. Mild paravertebral expected postop tenderness. Musculoskeletal: No Tenderness to Palpation of Joints or Extremities. ROM intact. Neurological: Cranial nerves II-XII grossly intact, DTR 2+/4. No acute focal neurological deficit. Psych/Mental Status: Normal Affect, Appropriate. Assessment & Plan Assessment/Plan (1) Lumbar spondylosis: (2) Paroxysmal atrial fibrillation: (3) Essential (primary) hypertension: (4) Hyperlipidemia: (5) Leukemia: PLAN: Plan #Lumbar spondylosis * s/p insertion of permanent spinal stimulator on 02/11/2024 * management as per primary team spine surgery * incentive spirometry. Patient is going to be discharged by spine surgeon to home. #Hypertension: on carvedilol and valsartan. Blood pressure is in normal range #Hyperlipidemia: on statin #History of CLL: follows up with oncology on outpatient basis. #Paroxysmal afib: had an episode of afib after he had a GI bleed some time ago. On carvedilol. Not on blood thinners due to history of GI bleed. DVT prophylaxis: as per primary service Charges/Coding Visit Charges Inpatient E&M: 55179 Subs Hosp L2
--- NOTE | 2024-02-12 10:41 | CASEMGMT ---
LESLIE GARCÍA Assessment Face to Face with patient for initial transition planning/care coordination assessment. LESLIE GARCÍA introduced self and role at [facility], pt voices understanding. Pt is A&Ox4 and is resting comfortably in bed and is calm. Care providers, pharmacy, and demographics verified. Admitting dx: HTN LACE Strata: 1 PCP: Bisi Zarate Specialists: Gaetano (Ortho), Lisa (Cardio) Preferred Pharmacy: [facility] Insurance: [facility] A/B, AARP Prescription Benefit: Yes LNOK: Susan Campbell (Friend) Living Arrangements: Pt lives alone in a two story home with one step to enter ADLs/IADLs: ind Transportation: Self, Friend Susan will drive pt home DME: Cane. Denies further needs HHC/SNF: Denies Hx or needs Pt?s goal: Home Plan: Home no needs. Pt denies the need for HHC, OP Tx, or SNF. Pt states that he feels safe discharging home and that his friend will stay with him for some time after DC. Pt denies further questions or concerns at this time. Jenna Calero RN, CM
--- NOTE | 2024-02-12 10:53 | CASEMGMT ---
Noted pt meds sent to [facility]. LESLIE CM into pt room, pt agreeable to having meds obtained from [facility]. Pt states he would like them brought to his room. TC to pharmacy, spoke with Roman, he is aware to deliver meds to room and pt will be paying with credit card.
== END 2024-02-12 11:49 | disposition home or self-care (01) ==
LOC: MS3 02-12 07:15 → ACINP 02-12 09:44 → SDC 02-12 09:44 → MS3 02-12 09:44
PROVIDERS: Anesthesiology; Admitting Provider Orthopaedic Surgery; PCP Nurse Practitioner Family; Referring Provider Orthopaedic Surgery; Visit Provider Orthopaedic Surgery
PROC: (CPT 63655; principal; 2024-02-11 09:15)
DX: Z45.42 Encounter for adjustment and management of neurostimulator (principal); C91.10 Chronic lymphocytic leukemia of B-cell type not having achieved remission; I48.0 Paroxysmal atrial fibrillation; M48.061 Spinal stenosis, lumbar region without neurogenic claudication; I10 Essential (primary) hypertension; M47.26 Other spondylosis with radiculopathy, lumbar region; G89.29 Other chronic pain; E78.00 Pure hypercholesterolemia, unspecified; M51.16 Intervertebral disc disorders with radiculopathy, lumbar region; M41.86 Other forms of scoliosis, lumbar region; Z79.899 Other long term (current) drug therapy; Z87.891 Personal history of nicotine dependence
CPT/HCPCS: 63685; 63655; 00300; 36415; 72070; 76000; 84443; 94668; 96361; 96365; 96366; 97162; 99221; C1713; C1778; C1820; J7120; A4216; G0378; J2405

== ENCOUNTER → 2025-05-08 | Outpatient (CLI) | payer MEDICARE, OTHER, SELFPAY ==
[2025-05-08 15:02] LABS: Hematocrit 39.0 % (40-54); Hemoglobin 12.8 g/dL (13.0-16.5); Immature Granulocytes Count 0.000 X10^3/uL (0.0-0.0); Mean Corp Hgb Conc 32.8 g/dL (32-36); Mean Corpuscular Volume 105.4 fL (80-94); Mean Platelet Vol. 9.9 fl (6.2-12.0); NRBC Flagged by Analyzer 0 % (0-5); POSITIVE DIFFERENTIAL YES; Platelet Count 240 K/mm3 (150-450); RBC Distribution Width CV 14.1 % (11.6-14.6); RBC Distribution Width SD 55.5 fl (35.1-43.9); Red Blood Count 3.70 M/mm3 (4.6-6.2); White Blood Count 2.6 K/mm3 (4.4-11.0)
[2025-05-08 15:31] LABS: AST(SGOT) 17 U/L (<=37); Alanine Aminotransfer ALT/SGPT 11 U/L (<=46); Albumin, Serum 4.0 g/dL (3.4-4.8); Alkaline Phosphatase 72 U/L (40-129); Anion Gap 10 (5-15); BUN 26 mg/dL (4-19); BUN/Creat Ratio 21.1 RATIO (10-20); Calcium,Total 9.3 mg/dL (7.6-11.0); Carbon Dioxide 22.6 mmol/L (21.0-32.0); Chloride 106 mmol/L (98-108); Cholesterol 201 mg/dL (<=200); Globulin 2.1 g/dL (2.2-4.2); Glucose 97 mg/dL (70-99); Low Density Lipoprotein Calc. 124 mg/dL; PSA,Total - Annual Screen 0.13 ng/mL (0.02-4.00); Potassium 4.8 mmol/L (3.3-5.1); Triglycerides 76 mg/dL; Very Low Density Lipoprotein 15 mg/dL (5-40); cholesterol:hdl ratio screen 3.17
== END | disposition home or self-care (01) ==
LOC: BFHLAB 13:20
PROVIDERS: PCP Nurse Practitioner Family; Visit Provider Nurse Practitioner Family
DX: Z12.5 Encounter for screening for malignant neoplasm of prostate (principal); E78.5 Hyperlipidemia, unspecified; I10 Essential (primary) hypertension
CPT/HCPCS: 36415; 80053; 80061; 84153; 85025; G0103